=== PATIENT | male | born 1965 | race Caucasian/White ===

== ENCOUNTER 2021-12-23 10:24 | Inpatient (IN) | payer BC ==
[2021-12-23 11:04] LABS: Basophils % (A) 0 %; Eosinophils # (A) 0.2 k/uL (0-0.7); Eosinophils % (A) 3 %; HCT 33.3 % (39.0-53.0); HGB 10.8 gm/dL (13.0-17.5); Hypochromasia Slight; Lymphocytes # (A) 0.8 k/uL (1.0-4.8); Lymphocytes % (A) 12 %; MCH 29.7 pg (25.0-35.0); MCHC 32.6 g/dL (31.0-37.0); MCV 91.1 fL (80.0-100.0); Mean Platelet Volume 6.9; Monocytes # (A) 0.4 k/uL (0-1.0); Monocytes % (A) 6 %; Neutrophils # (A) 5.4 k/uL (1.3-7.7); Neutrophils % (A) 77 %; Platelet Count 432 k/uL (150-450); RBC 3.66 m/uL (4.30-5.90); RDW 13.1 % (11.5-15.5); WBC 7.1 k/uL (3.8-10.6)
[2021-12-23 11:19] LABS: Albumin 3.6 g/dL (3.5-5.0); Calcium 9.7 mg/dL (8.4-10.2); Magnesium 1.7 mg/dL (1.6-2.3); Potassium 3.6 mmol/L (3.5-5.1); Total Bilirubin 0.4 mg/dL (0.2-1.3); Total Protein 6.6 g/dL (6.3-8.2)
--- NOTE | 2021-12-23 11:42 | XR ---
EXAMINATION TYPE: XR chest 2V DATE OF EXAM: 12/23/2021 COMPARISON: NONE HISTORY: Anemia TECHNIQUE: Frontal and lateral views of the chest are obtained on 3 images. FINDINGS: Abnormal increased attenuation is present in left upper lobe with suggestion of pleural-ba sed margin, extension from the left hilar region. No evident pneumothorax or pleural effusion. Cardia c mediastinal silhouette is within normal limits. Bone mineralization is maintained. IMPRESSION: Correlate for left upper lobe pneumonia, follow-up to resolution to exclude left upper l obe lung mass, consider chest CT as indicated.
--- NOTE | 2021-12-23 11:45 | XR ---
KUB HISTORY: Anemia Frontal KUB and 2 images There is a spinal curvature, underlying degenerative disc change. There is marked destructive change of the left femoral head with secondary osteoarthritic change, probable bone resorption. Abnormal att enuation noted in the left upper lobe. There is no evident bowel obstruction or pneumoperitoneum. The re are some air-fluid levels without bowel distention. No pathologic calcification. IMPRESSION: Correlate for ileus or enteritis. Destructive appearance of the left femoral head as desc ribed. Correlate to exclude left upper lobe lung mass.
--- NOTE | 2021-12-23 11:49 | ED ---
Recheck HPI - General Chief Complaint: Recheck/Abnormal Lab/Rx Stated Complaint: Abnormal labs Time Seen by Provider: 12/23/21 10:36 Source: patient, family, RN/MD, RN notes reviewed Mode of arrival: ambulatory Limitations: physical limitation - History of Present Illness Initial Comments: 56-year-old male with a history of left hip issues for which she is supposed get a hip replacement done soon was sent in by his doctor for evaluation of anemia and elevated creatinine. Per the patient's attending Dr. Munoz the patient had a hemoglobin 9.5 and a creatinine of 2.37 which is elevated from her previous draw hemoglobin is lower than a previous draw. Patient has no known history of anemia no rectal bleeding no GI bleeding. Of also states she's not had any kidney issues he does admit he does not drink as much fluid as he probably should he drinks coffee. He denies any fevers chills nausea vomiting sweats any chest or abdominal pain no hip pain he has is his left hip no other complaints or modifying factors - Related Data Home Medications Medication Instructions Recorded Confirmed Ibuprofen [Motrin Ib] 600 mg PO Q8H PRN 12/23/21 12/23/21 Losartan-Hctz 50-12.5 mg [Hyzaar 1 tab PO DAILY 12/23/21 12/23/21 50-12.5] buPROPion XL [Wellbutrin XL] 150 mg PO DAILY 12/23/21 12/23/21 Allergies Allergy/AdvReac Type Severity Reaction Status Date / Time No Known Allergies Allergy Verified 12/23/21 10:39 Review of Systems ROS Statement: Those systems with pertinent positive or pertinent negative responses have been documented in the HPI. ROS Other: All systems not noted in ROS Statement are negative. Past Medical History Past Medical History: No Reported History History of Any Multi-Drug Resistant Organisms: None Reported Past Surgical History: No Surgical Hx Reported Past Psychological History: No Psychological Hx Reported Smoking Status: Former smoker Past Alcohol Use History: Occasional Past Drug Use History: Marijuana General Exam - General Exam Comments Initial Comments: This is a well-developed well-nourished awake alert oriented 4 male Limitations: physical limitation General appearance: alert, in no apparent distress Head exam: Present: atraumatic, normocephalic, normal inspection Eye exam: Present: normal appearance, PERRL, EOMI. Absent: scleral icterus, conjunctival injection, periorbital swelling ENT exam: Present: mucous membranes dry Neck exam: Present: normal inspection, full ROM, other (Reviewofbruits). Absent: tenderness, meningismus, lymphadenopathy Respiratory exam: Present: normal lung sounds bilaterally. Absent: respiratory distress, wheezes, rales, rhonchi, stridor Cardiovascular Exam: Present: regular rate, normal rhythm, normal heart sounds. Absent: systolic murmur, diastolic murmur, rubs, gallop, clicks GI/Abdominal exam: Present: soft, normal bowel sounds. Absent: distended, tenderness, guarding, rebound, rigid Rectal exam: Present: normal inspection, other (No gross blood no masses brown stool) Extremities exam: Present: normal inspection, full ROM, normal capillary refill. Absent: tenderness, pedal edema, joint swelling, calf tenderness Back exam: Present: normal inspection Neurological exam: Present: alert, oriented X3, CN II-XII intact Psychiatric exam: Present: normal affect, normal mood Skin exam: Present: warm, dry, intact, normal color. Absent: rash Course Vital Signs 12/23/21 10:32 Temperature 97.4 F L Pulse Rate 77 Respiratory 18 Rate Blood Pressure 139/89 O2 Sat by Pulse 100 Oximetry Medical Decision Making - Medical Decision Making I did discuss findings with patient and his . Patient does have the left upper lobe finding that I did discuss with them additionally he's got evidence of acute kidney injury positive basis of dehydration and anemia patient will be admitted I did discuss case with Dr. holt. Dr. King will be consulted. Patient will be placed on IV fluids IV antibiotics. - Lab Data Result diagrams: 12/23/21 10:45 12/23/21 10:45 Lab Results 12/23/21 12/23/21 12/23/21 Range/Units 10:45 10:45 10:45 WBC 7.1 (3.8-10.6) k/uL RBC 3.66 L (4.30-5.90) m/uL Hgb 10.8 L (13.0-17.5) gm/dL Hct 33.3 L (39.0-53.0) % MCV 91.1 (80.0-100.0) fL MCH 29.7 (25.0-35.0) pg MCHC 32.6 (31.0-37.0) g/dL RDW 13.1 (11.5-15.5) % Plt Count 432 (150-450) k/uL MPV 6.9 Neutrophils % 77 % Lymphocytes % 12 % Monocytes % 6 % Eosinophils % 3 % Basophils % 0 % Neutrophils # 5.4 (1.3-7.7) k/uL Lymphocytes # 0.8 L (1.0-4.8) k/uL Monocytes # 0.4 (0-1.0) k/uL Eosinophils # 0.2 (0-0.7) k/uL Basophils # 0.0 (0-0.2) k/uL Hypochromasia Slight Sodium 141 (137-145) mmol/L Potassium 3.6 (3.5-5.1) mmol/L Chloride 108 H (98-107) mmol/L Carbon Dioxide 19 L (22-30) mmol/L Anion Gap 14 mmol/L BUN 27 H (9-20) mg/dL Creatinine 1.96 H (0.66-1.25) mg/dL Est GFR (CKD-EPI)AfAm 43 (>60 ml/min/1.73 sqM) Est GFR (CKD-EPI)NonAf 37 (>60 ml/min/1.73 sqM) Glucose 99 (74-99) mg/dL Calcium 9.7 (8.4-10.2) mg/dL Magnesium 1.7 (1.6-2.3) mg/dL Total Bilirubin 0.4 (0.2-1.3) mg/dL AST 38 (17-59) U/L ALT 80 H (4-49) U/L Alkaline Phosphatase 136 H (38-126) U/L Creatine Kinase 55 (55-170) U/L Troponin I <0.012 (0.000-0.034) ng/mL Total Protein 6.6 (6.3-8.2) g/dL Albumin 3.6 (3.5-5.0) g/dL Lipase 27 (23-300) U/L TSH (0.465-4.680) mIU/L Urine Color Urine Appearance (Clear) Urine pH (5.0-8.0) Ur Specific Lincoln (1.001-1.035) Urine Protein (Negative) Urine Glucose (UA) (Negative) Urine Ketones (Negative) Urine Blood (Negative) Urine Nitrite (Negative) Urine Bilirubin (Negative) Urine Urobilinogen (<2.0) mg/dL Ur Leukocyte Esterase (Negative) Stool Occult Blood (Negative) Blood Type Blood Type Confirm Blood Type Recheck Bld Type Recheck Status Antibody Screen Spec Expiration Date 12/23/21 12/23/21 12/23/21 Range/Units 10:45 10:45 10:50 WBC (3.8-10.6) k/uL RBC (4.30-5.90) m/uL Hgb (13.0-17.5) gm/dL Hct (39.0-53.0) % MCV (80.0-100.0) fL MCH (25.0-35.0) pg MCHC (31.0-37.0) g/dL RDW (11.5-15.5) % Plt Count (150-450) k/uL MPV Neutrophils % % Lymphocytes % % Monocytes % % Eosinophils % % Basophils % % Neutrophils # (1.3-7.7) k/uL Lymphocytes # (1.0-4.8) k/uL Monocytes # (0-1.0) k/uL Eosinophils # (0-0.7) k/uL Basophils # (0-0.2) k/uL Hypochromasia Sodium (137-145) mmol/L Potassium (3.5-5.1) mmol/L Chloride (98-107) mmol/L Carbon Dioxide (22-30) mmol/L Anion Gap mmol/L BUN (9-20) mg/dL Creatinine (0.66-1.25) mg/dL Est GFR (CKD-EPI)AfAm (>60 ml/min/1.73 sqM) Est GFR (CKD-EPI)NonAf (>60 ml/min/1.73 sqM) Glucose (74-99) mg/dL Calcium (8.4-10.2) mg/dL Magnesium (1.6-2.3) mg/dL Total Bilirubin (0.2-1.3) mg/dL AST (17-59) U/L ALT (4-49) U/L Alkaline Phosphatase (38-126) U/L Creatine Kinase (55-170) U/L Troponin I (0.000-0.034) ng/mL Total Protein (6.3-8.2) g/dL Albumin (3.5-5.0) g/dL Lipase (23-300) U/L TSH 3.980 (0.465-4.680) mIU/L Urine Color Urine Appearance (Clear) Urine pH (5.0-8.0) Ur Specific [place] (1.001-1.035) Urine Protein (Negative) Urine Glucose (UA) (Negative) Urine Ketones (Negative) Urine Blood (Negative) Urine Nitrite (Negative) Urine Bilirubin (Negative) Urine Urobilinogen (<2.0) mg/dL Ur Leukocyte Esterase (Negative) Stool Occult Blood (Negative) Blood Type A Positive Blood Type Confirm A Positive Blood Type Recheck No Previous Record Bld Type Recheck Status CABO Indicated Antibody Screen NEGATIVE Spec Expiration Date 12/26/2021 - 234412/23/21 12/23/21 Range/Units 12:41 12:41 WBC (3.8-10.6) k/uL RBC (4.30-5.90) m/uL Hgb (13.0-17.5) gm/dL Hct (39.0-53.0) % MCV (80.0-100.0) fL MCH (25.0-35.0) pg MCHC (31.0-37.0) g/dL RDW (11.5-15.5) % Plt Count (150-450) k/uL MPV Neutrophils % % Lymphocytes % % Monocytes % % Eosinophils % % Basophils % % Neutrophils # (1.3-7.7) k/uL Lymphocytes # (1.0-4.8) k/uL Monocytes # (0-1.0) k/uL Eosinophils # (0-0.7) k/uL Basophils # (0-0.2) k/uL Hypochromasia Sodium (137-145) mmol/L Potassium (3.5-5.1) mmol/L Chloride (98-107) mmol/L Carbon Dioxide (22-30) mmol/L Anion Gap mmol/L BUN (9-20) mg/dL Creatinine (0.66-1.25) mg/dL Est GFR (CKD-EPI)AfAm (>60 ml/min/1.73 sqM) Est GFR (CKD-EPI)NonAf (>60 ml/min/1.73 sqM) Glucose (74-99) mg/dL Calcium (8.4-10.2) mg/dL Magnesium (1.6-2.3) mg/dL Total Bilirubin (0.2-1.3) mg/dL AST (17-59) U/L ALT (4-49) U/L Alkaline Phosphatase (38-126) U/L Creatine Kinase (55-170) U/L Troponin I (0.000-0.034) ng/mL Total Protein (6.3-8.2) g/dL Albumin (3.5-5.0) g/dL Lipase (23-300) U/L TSH (0.465-4.680) mIU/L Urine Color Light Yellow Urine Appearance Clear (Clear) Urine pH 6.5 (5.0-8.0) Ur Specific [place] 1.012 (1.001-1.035) Urine Protein Trace H (Negative) Urine Glucose (UA) Negative (Negative) Urine Ketones Negative (Negative) Urine Blood Negative (Negative) Urine Nitrite Negative (Negative) Urine Bilirubin Negative (Negative) Urine Urobilinogen <2.0 (<2.0) mg/dL Ur Leukocyte Esterase Negative (Negative) Stool Occult Blood Negative (Negative) Blood Type Blood Type Confirm Blood Type Recheck Bld Type Recheck Status Antibody Screen Spec Expiration Date - EKG Data -: EKG Interpreted by Me EKG shows normal: sinus rhythm EKG Comments: Sinus rhythm with [place] interval of 116 ventricular rate 74 QRS 106 QT since QTC 379/[address]-T wave changes some artifact present - Radiology Data Radiology results: report reviewed (Imaging reviewed as well as report evidence a left upper lobe consolidation unclear whether pneumonia or mass with pneumonia basically reports), image reviewed Disposition Clinical Impression: Mass of left lung, Left upper lobe pneumonia, Anemia, Acute kidney injury, Dehydration Disposition: ADMITTED IP TO THIS [facility] Condition: Stable Referrals: Chandana Munoz MD [Primary Care Provider] - 1-2 days Decision Date: 12/23/21 Decision Time: 14:39
[2021-12-23 12:56] LABS: Appearance,Urine Clear (Clear); Bilirubin,Urine Negative (Negative); Blood,Urine Negative (Negative); Color,Urine Light Yellow; Glucose,Urine (UA) Negative (Negative); Ketones,Urine Negative (Negative); Leukocyte Esterase,Urine Negative (Negative); Nitrite,Urine Negative (Negative); PH, Urine 6.5 (5.0-8.0); Protein,Urine Trace (Negative); Specific Gravity,Urine 1.012 (1.001-1.035); Urobilinogen,Urine <2.0 mg/dL (<2.0)
--- NOTE | 2021-12-23 13:27 | CT ---
EXAMINATION TYPE: CT chest wo con DATE OF EXAM: 12/23/2021 COMPARISON: Radiograph same day HISTORY: 56-year-old male abnormal CXR, spot in left upper lobe lung-scheduled for hip surgery. Left upper lobe infiltrate versus mass. TECHNIQUE: Contiguous axial scanning of the chest without IV contrast. Coronal and sagittal reconstru ctions performed. CT DLP: 342.2 mGycm Automated exposure control for dose reduction was used. FINDINGS: Heart normal size without pericardial effusion. LAD and circumflex coronary artery calcifications are present. Ectatic aortic root at 3.9 cm. Upper descending thoracic aorta is ectatic at 3.3 cm. Bovine configura tion to the aortic arch. Ectatic lower descending thoracic aorta 2.8 cm. There is moderate centrilobular emphysema. 5 mm subpleural pulmonary nodule overlying the right hemid iaphragm. Within the left upper lobe, extending to have broad-based abutment of the lateral pleural surface and partial abutment of the major fissure, there is a large area of consolidation measuring up to 11.7 x 5.7 cm. Some of the region appears to represent airspace disease but there is also a more focal roun ded region, for example, coronal image 31. Internal areas of cavitation are noted, axial image 21. No pleural effusion. Visualized upper abdomen shows low density thickening of the left adrenal gland measuring up to 1.9 c m. The attenuation of 6 Hounsfield units suggests underlying adrenal hyperplasia or adrenal adenoma. Bones: No osseous destructive process. IMPRESSION: 1. COPD WITH MODERATE EMPHYSEMA. 2. LARGE AREA OF CONSOLIDATION MEASURING 11.7 X 5.7 CM ALONG THE PERIPHERY OF THE LEFT UPPER LOBE. TH IS IS EQUIVOCAL FOR CAVITARY NEOPLASM WITH SURROUNDING PNEUMONIA VERSUS A PURELY INFECTIOUS PROCESS W ITH DEVELOPING CAVITARY PNEUMONIA. RECOMMEND CORRELATING WITH PATIENT'S SYMPTOMS. A CONTRAST-ENHANCED STUDY, PET/CT, OR SHORT INTERVAL FOLLOW-UP AFTER ANTIBIOTIC TREATMENT MAY BE HELPFUL IN FURTHER EVAL UATING.
[2021-12-23] MEDS ORDERED: cefTRIAXone IN SWFI 1,000 MG/10 ML SYRINGE IVP STA (14:21)
[2021-12-23] MEDS ORDERED: PNEUMONIA PROTOCOL UTILIZED 1 EACH MISC PO PRN (14:39)
[2021-12-23] MEDS ORDERED: AZITHROMYCIN 500 MG in SODIUM CHLORIDE 0.9% 250 ML IVPB STA (14:39)
[2021-12-23] MEDS ORDERED: IBUPROFEN 600 MG TAB PO PRN (14:41)
[2021-12-23] MEDS ORDERED: HYDROmorphone 1 MG/ML 1 ML SYRINGE IVP STA (14:45)
[2021-12-23] MEDS: SODIUM CHLORIDE 0.9% 1,000 ML IV SCH ×2 (15:38→23:52)
[2021-12-23] MEDS ORDERED: ALPRAZolam 0.25 MG TAB PO PRN (17:15)
[2021-12-23] MEDS: HYDROmorphone 1 MG/ML 1 ML SYRINGE IVP PRN (21:21)
[2021-12-23] MEDS: HEPARIN SODIUM,PORCINE/PF 5,000 UNIT/0.5 ML SYRINGE SQ SCH (21:21)
--- NOTE | 2021-12-23 23:32 | HP ---
HISTORY AND PHYSICAL CHIEF COMPLAINT: Abnormal labs. HISTORY OF PRESENT ILLNESS: This is a 56-year-old gentleman with a past medical history of no significant medical issues, being followed by Dr. Ryan Munoz in the outpatient setting, was supposed to have a hip replacement done next week by Orthopedic Surgery in [facility]. The patient was found to have elevated creatinine and anemia of creatinine 2.37, and the patient was sent to [facility] for further evaluation and treatment. The evaluation in the hospital, chest x-ray was done, which was personally reviewed by me showed possible left upper lobe pneumonia versus mass lesion. CT scan of the chest, which again I reviewed showed a large area of consolidative mass in the left upper lobe, possibly cavitary neoplasm versus infectious process. The patient is being admitted for further evaluation and treatment. There is no history of any fever, rigors, or chills. PAST MEDICAL HISTORY: History of DJD, history of smoking. HOME MEDICATIONS: Reviewed include Motrin. Dose and rest of medications noted. ALLERGIES: None. FAMILY HISTORY: No history of heart disease or strokes in the family. SOCIAL HISTORY: Previous history of smoking. REVIEW OF SYSTEMS: A 14-point review of systems is negative except as mentioned earlier. PHYSICAL EXAMINATION: VITAL SIGNS: Pulse is 77, blood pressure is 120/60, respirations 18. HEENT: Conjunctivae normal. NECK: No JVD. CARDIOVASCULAR: S1, S2. RESPIRATIONS: Breath sounds diminished at the bases. No rhonchi. No crackles. ABDOMEN: Soft, nontender. LEGS: No edema. No swelling. NERVOUS SYSTEM: No focal deficits. LABS: Creatinine 1.9. ASSESSMENT: 1. Left upper lobe mass lesion versus pneumonia. 2. Increased creatinine with possible acute renal failure. 3. History of nicotine dependence. RECOMMENDATIONS AND DISCUSSION: This is a 56-year-old gentleman who presented with multiple medical issues, we will monitor the patient closely. Empiric antibiotics initiated. We will obtain the cultures. We will obtain pulmonary consultation and nephrology consultation for acute renal failure. The CT scan of the chest was reviewed and the patient might require further evaluation including cultures and biopsies. The patient had orthopedic surgery scheduled in the near future, which may be postponed till final resolution of the lung issues are determined. Further recommendations to follow. Prognosis guarded. MMODL / IJN: [id number] /
--- NOTE | 2021-12-24 06:45 | XR ---
EXAMINATION TYPE: XR chest 2V DATE OF EXAM: 12/24/2021 COMPARISON: Chest x-ray and CT chest from 1 day earlier HISTORY: Pneumonia. TECHNIQUE: Frontal and lateral views of the chest are obtained. FINDINGS: Background chronic emphysematous change with masslike consolidation in the periphery of th e left upper lobe is redemonstrated. Right lung remains clear. No pleural effusion or pneumothorax se en bilaterally. The cardiac silhouette size is stable and within normal limits. The osseous structu res are intact. IMPRESSION: Chronic emphysematous change with persistent left upper lobe cavitating pneumonia. No si gnificant change from one day earlier.
[2021-12-24] MEDS: PANTOPRAZOLE 40 MG TABLET PO SCH (08:26)
[2021-12-24] MEDS: AZITHROMYCIN 500 MG TAB PO SCH (08:26)
[2021-12-24] MEDS: HEPARIN SODIUM,PORCINE/PF 5,000 UNIT/0.5 ML SYRINGE SQ SCH ×2 (08:26→19:38)
[2021-12-24] MEDS: LOSARTAN-HCTZ 50-12.5 MG 1 EACH TAB PO SCH (08:26)
[2021-12-24] MEDS: HYDROmorphone 1 MG/ML 1 ML SYRINGE IVP PRN ×3 (08:29→20:55)
[2021-12-24] MEDS: SODIUM CHLORIDE 0.9% 1,000 ML IV SCH ×2 (08:29→19:39)
[2021-12-24] MEDS: buPROPion XL 150 MG TAB.ER.24H PO SCH (09:53)
--- NOTE | 2021-12-24 11:11 | P.CNPUL ---
History of Present Illness Consult date: 12/24/21 Requesting physician: Jasmeet Berry Reason for consult: abnormal CXR/CT Chief complaint: Abnormal lab finding History of present illness: This a very pleasant 56-year-old male patient who follows with Dr. Chandana Munoz as his primary care provider. He has a history of hypertension, chronic tobacco dependence of 45 years, left hip pain and was planning on having a left hip arthroplasty. During the preop workup he was found to have a hemoglobin of 9.5 and a creatinine of 2.37 and was recommended by his PCP to be evaluated here he was seen in the emergency room yesterday. He has been taking a lot of ibuprofen for the pain. He is maintained on Hyzaar and Wellbutrin. White count 7.1. Hemoglobin 10.8. Sodium 141. Potassium 3.6. Bicarb 19. BUN 27. Creatinine 1.96. AST 38. ALT 80. Barfield virus by PCR not detected. A KUB x- ray revealed ileus or enteritis. Destructive appearance of left femoral head. Abnormal attenuation in the left upper lobe. Chest x-ray revealed increased attenuation present on the left upper lobe suggestive pleural base margin, extension the left hilar region. Computed tomography scan of the chest revealed moderate emphysema/COPD. There is a large area of consolidation measuring 11.7 x 5.7 cm along the periphery of the left upper lobe. Equivocal for cavitary neoplasm with surrounding pneumonia versus pearly and purely infectious process. The patient is seen in consultation for the same. He is currently resting comfortably in bed. Awake and alert in no acute distress. He denies any shortness of breath, cough or congestion. No fever, chills or night sweats. No hemoptysis. He has lost about 5 pounds in the past 3 months. No leukocytosis. Pro calcitonin 0.08. He is maintaining O2 saturation 98% on room air. Afebrile. Hemodynamically stable. Review of Systems REVIEW OF SYSTEMS: CONSTITUTIONAL: Positive for weight loss of 5 pounds in the past 3 months.. EYES: Denies change in vision. EARS, NOSE, MOUTH, THROAT: Denies headaches, denies sore throat. CARDIOVASCULAR: Denies chest pain, palpitations or syncopal episodes. RESPIRATORY: Denies shortness of breath, cough, congestion or hemoptysis. GASTROINTESTINAL: Denies change in appetite, denies abdominal pain GENITOURINARY: Denies hematuria, denies infections. MUSKULOSKELETAL: Left hip pain. INTEGUMENTARY: Denies rash, denies eczema. NEUROLOGICAL: Denies recent memory loss, no recent seizure activity. PSYCHIATRIC: Denies anxiety, denies depression. HEMATOLOGIC/LYMPHATIC: Denies anemia, denies enlarged lymph nodes. Past Medical History Past Medical History: Hearing Disorder / Deafness, Osteoarthritis (OA) History of Any Multi-Drug Resistant Organisms: None Reported Past Surgical History: No Surgical Hx Reported Past Anesthesia/Blood Transfusion Reactions: No Reported Reaction Past Psychological History: No Psychological Hx Reported Smoking Status: Former smoker Past Alcohol Use History: Occasional Past Drug Use History: Marijuana Medications and Allergies Home Medications Medication Instructions Recorded Confirmed Type Ibuprofen [Motrin Ib] 600 mg PO Q8H PRN 12/23/21 12/23/21 History Losartan-Hctz 50-12.5 mg [Hyzaar 1 tab PO DAILY 12/23/21 12/23/21 History 50-12.5] buPROPion XL [Wellbutrin XL] 150 mg PO DAILY 12/23/21 12/23/21 History Allergies Allergy/AdvReac Type Severity Reaction Status Date / Time No Known Allergies Allergy Verified 12/23/21 10:39 Physical Exam Vitals: Vital Signs Temp Pulse Pulse Resp BP BP Pulse Ox 12/24/21 04:05 98.0 F 69 15 132/73 98 12/23/21 19:16 97.7 F 70 15 109/51 100 12/23/21 17:32 97.6 F 71 18 170/83 100 12/23/21 17:02 98.1 F 77 18 120/68 98 12/23/21 15:48 72 18 121/76 100 Intake and Output 12/23/21 12/24/21 12/24/21 22:59 06:59 14:59 Intake Total 296 240 Output Total 500 300 Balance 296 -500 -60 Intake: Oral 296 240 Output: Urine 500 300 Other: Voiding Method Toilet Urinal Weight 68.492 kg GENERAL EXAM: Alert, active, very pleasant 56-year-old male patient, on room air, comfortable in no apparent distress. HEAD: Normocephalic. EYES: Normal reaction of pupils, equal size. NOSE: Clear with pink turbinates. THROAT: No erythema or exudates. NECK: No masses, no JVD. CHEST: No chest wall deformity. LUNGS: Equal air entry with few scattered rhonchi over the left lung. CVS: S1 and S2 normal with no audible murmur, regular rhythm. ABDOMEN: No hepatosplenomegaly, normal bowel sounds, no guarding or rigidity. SPINE: No scoliosis or deformity SKIN: No rashes CENTRAL NERVOUS SYSTEM: No focal deficits, tone is normal in all 4 extremities. EXTREMITIES: There is no peripheral edema. No clubbing, no cyanosis. Peripheral pulses are intact. Results - Laboratory Findings CBC and BMP: 12/23/21 10:45 12/23/21 10:45 Abnormal lab findings: Abnormal Labs 12/23/21 12/23/21 12/23/21 10:45 10:45 10:45 RBC 3.66 L Hgb 10.8 L Hct 33.3 L Lymphocytes # 0.8 L ESR 84 H Chloride 108 H Carbon Dioxide 19 L BUN 27 H Creatinine 1.96 H ALT 80 H Alkaline Phosphatase 136 H C-Reactive Protein Urine Protein 12/23/21 12/23/21 10:45 12:41 RBC Hgb Hct Lymphocytes # ESR Chloride Carbon Dioxide BUN Creatinine ALT Alkaline Phosphatase C-Reactive Protein 3.0 H Urine Protein Trace H - Diagnostic Findings Chest x-ray: image reviewed CT scan - chest: image reviewed Assessment and Plan Assessment: Left hip pain being worked up for possible left hip arthroplasty found to have abnormal labs and referred to the hospital for anemia, renal failure 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 No evidence of pneumonia. Pro-calcitonin 0.08. No leukocytosis. No fever. No symptoms Chronic tobacco dependence of 45 years at 1 pack per day, states quit 3 weeks ago Acute renal failure suspect secondary to increased amount of NSAIDs, hydrochlorothiazide. Current creatinine 1.96. GFR 37 Anemia of unclear etiology, current hemoglobin 10.8 Hypertension Plan: The patient was seen and evaluated Chest x-ray, CAT scan, labs and medications reviewed Will need a biopsy of the left upper lobe lung mass We'll request interventional radiology for FNA Stable and on room air The patient could be discharged home and have this done as outpatient Continues on normal saline at 100 ML's per hour Follow-up labs are pending Educated regarding the importance of complete smoking cessation To avoid nephrotoxic agents Will need outpatient PET scan We will continue to follow make further recommendations based on his clinical status I have personally seen and examined the patient, performed the documentation and the assessment and plan as written. Number of minutes spent on the visit: 20.
[2021-12-24 12:52] LABS: Basophils # (A) 0.03 X 10*3/uL (0.00-0.10); Basophils % (A) 0.5 %; Eosinophils # (A) 0.17 X 10*3/uL (0.04-0.35); Eosinophils % (A) 2.6 %; HCT 27.9 % (39.6-50.0); HGB 8.7 g/dL (13.0-17.0); Immature Grans, Automated 0.5 %; Lymphocytes # (A) 0.73 X 10*3/uL (0.90-5.00); Lymphocytes % (A) 11.2 %; MCHC 31.2 g/dL (32.0-37.0); Mean Platelet Volume 8.8 fL (9.5-12.2); Monocytes # (A) 0.68 X 10*3/uL (0.20-1.00); Monocytes % (A) 10.4 %; NRBC Per 100 WBC 0 /100 WBCS (0.0-0.0); Neutrophils # (A) 4.88 X 10*3/uL (1.80-7.70); Neutrophils % (A) 74.8 %; Platelet Count 343 X 10*3/uL (140-440); RDW 12.9 % (11.5-14.5); WBC 6.52 X 10*3/uL (4.50-10.00)
[2021-12-24 13:52] LABS: ALT 54 U/L (10-49); AST 23 U/L (14-35); African American GFR (CKD) 58.6 (60.0-200.0); Albumin 3.2 g/dL (3.8-4.9); Alkaline Phosphatase 112 U/L (41-126); BUN/Creat Ratio 13.53 Ratio (12.00-20.00); Blood Urea Nitrogen 20.3 mg/dL (9.0-27.0); Calcium 9.2 mg/dL (8.7-10.3); Carbon Dioxide 17.8 mmol/L (20.0-27.5); Chloride 111 mmol/L (96-109); Globulin 2.5 g/dL (1.6-3.3); Glucose 93 mg/dL (70-110); Non-African American GFR(CKD) 50.6 (60.0-200.0); Potassium 3.4 mmol/L (3.5-5.5); Sodium 141 mmol/L (135-145); Total Bilirubin <0.15 mg/dL (0.30-1.20); Total Protein 5.7 g/dL (6.2-8.2)
[2021-12-24] MEDS: POTASSIUM CHLORIDE ER 20 MEQ TAB.ER PO SCH ×2 (18:09→19:38)
[2021-12-25] MEDS: HYDROmorphone 1 MG/ML 1 ML SYRINGE IVP PRN ×4 (04:05→22:01)
[2021-12-25] MEDS: SODIUM CHLORIDE 0.9% 1,000 ML IV SCH ×2 (06:21→18:07)
[2021-12-25] MEDS: AZITHROMYCIN 500 MG TAB PO SCH (08:09)
[2021-12-25] MEDS: HEPARIN SODIUM,PORCINE/PF 5,000 UNIT/0.5 ML SYRINGE SQ SCH ×2 (08:09→22:01)
[2021-12-25] MEDS: LOSARTAN-HCTZ 50-12.5 MG 1 EACH TAB PO SCH (08:09)
[2021-12-25] MEDS: buPROPion XL 150 MG TAB.ER.24H PO SCH (08:09)
[2021-12-25] MEDS: PANTOPRAZOLE 40 MG TABLET PO SCH (08:09)
--- NOTE | 2021-12-25 10:31 | P.PN ---
Subjective Progress Note Date: 12/25/21 Principal diagnosis: Cavitary lung mass This a very pleasant 56-year-old male patient who follows with Dr. Chandana Munoz as his primary care provider. He has a history of hypertension, chronic tobacco dependence of 45 years, left hip pain and was planning on having a left hip arthroplasty. During the preop workup he was found to have a hemoglobin of 9.5 and a creatinine of 2.37 and was recommended by his PCP to be evaluated here he was seen in the emergency room yesterday. He has been taking a lot of ibuprofen for the pain. He is maintained on Hyzaar and Wellbutrin. White count 7.1. Hemoglobin 10.8. Sodium 141. Potassium 3.6. Bicarb 19. BUN 27. Creatinine 1.96. AST 38. ALT 80. Barfield virus by PCR not detected. A KUB x- ray revealed ileus or enteritis. Destructive appearance of left femoral head. Abnormal attenuation in the left upper lobe. Chest x-ray revealed increased attenuation present on the left upper lobe suggestive pleural base margin, exte nsion the left hilar region. Computed tomography scan of the chest revealed moderate emphysema/COPD. There is a large area of consolidation measuring 11.7 x 5.7 cm along the periphery of the left upper lobe. Equivocal for cavitary neoplasm with surrounding pneumonia versus pearly and purely infectious process. The patient is seen in consultation for the same. He is currently resting comfortably in bed. Awake and alert in no acute distress. He denies any shortness of breath, cough or congestion. No fever, chills or night sweats. No hemoptysis. He has lost about 5 pounds in the past 3 months. No leukocytosis. Pro calcitonin 0.08. He is maintaining O2 saturation 98% on room air. Af ebrile. Hemodynamically stable. Reevaluated today on 12/25/21, patient is doing well, relatively asymptomatic, hopefully the patient will undergo CT-guided needle biopsy/FNA of the left upper lobe mass. And I believe the patient could be considered for discharge home after his and follow-up on outpatient basis. Needs outpatient workup for underlying malignancy involving the left upper lobe. Objective - Vital Signs Vital signs: Vital Signs Temp 97.9 F 12/25/21 04:07 Pulse 73 12/25/21 04:07 Resp 16 12/25/21 04:07 BP 148/83 10/23/22 04:07 Pulse Ox 96 12/25/21 04:07 FiO2 Intake & Output 12/24/21 12/25/21 12/25/21 18:59 06:59 18:59 Intake Total 480 1200 Output Total 300 800 Balance 180 400 Intake: Intake, IV Titration 1200 Amount Sodium Chloride 0.9% 1, 1200 000 ml @ 100 mls/hr IV . Q10H [facility] Rx#:[id number] Oral 480 Output: Urine 300 800 Other: Voiding Method Toilet Urinal # Voids 3 - Exam Physical Exam: Revealed a 56-year-old white male in no distress. Head: Atraumatic normocephalic. HEENT:[Neck is supple.] [No neck masses.] [No thyromegaly.] [No JVD.] Chest: [Clear throughout, no crackles, no rhonchi, no wheezes.] Cardiac Exam: [Normal S1 and S2, no S3 gallop, no murmur.] Abdomen: [Soft, nontender, no megaly, no rebound, no guarding, normal bowel so unds.] Extremities: [No clubbing, no edema, no cyanosis.] Neurological Exam: [No focal neurologic deficit.] Alert and oriented 3. Psychiatric: Normal mood affect and normal mental status examination. Hematologic/lymphatic, no evidence of any palpable lymphadenopathy. Skin: No rashes - Labs CBC & Chem 7: 12/24/21 07:46 12/24/21 07:46 Labs: Abnormal Lab Results - Last 24 Hours (Table) 12/24/21 12/24/21 Range/Units 07:46 07:46 RBC 3.00 L (4.40-5.60) X 10*6/uL Hgb 8.7 L (13.0-17.0) g/dL Hct 27.9 L (39.6-50.0) % MCHC 31.2 L (32.0-37.0) g/dL MPV 8.8 L (9.5-12.2) fL Lymphocytes # 0.73 L (0.90-5.00) X 10*3/uL Potassium 3.4 L (3.5-5.5) mmol/L Chloride 111 H (96-109) mmol/L Carbon Dioxide 17.8 L (20.0-27.5) mmol/L Est GFR (CKD-EPI)AfAm 58.6 L (60.0-200.0) Est GFR (CKD-EPI)NonAf 50.6 L (60.0-200.0) Total Bilirubin <0.15 L (0.30-1.20) mg/dL ALT 54 H (10-49) U/L Total Protein 5.7 L (6.2-8.2) g/dL Albumin 3.2 L (3.8-4.9) g/dL Albumin/Globulin Ratio 1.30 L (1.60-3.17) g/dL Microbiology - Last 24 Hours (Table) 12/23/21 15:10 Blood Culture - Preliminary Blood No Growth after 24 hours 12/23/21 15:25 Blood Culture - Preliminary Blood No Growth after 24 hours Assessment and Plan Assessment: Impression: 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 Tobacco dependence syndrome Left hip osteoarthritis Acute renal failure/acute kidney injury exact etiology is not clear could be related to excessive use of nonsteroidal and inflammatory drugs Hypertension Suspect Chronic anemia, needs outpatient workup Recommendation: Continue plans for CT-guided needle biopsy Continue hydration. Avoid nephrotoxic agents Patient will need PET scan on outpatient basis If CT-guided biopsy is nondiagnostic down the line, may have to be considered for lung biopsy/bronchoscopy We will continue to follow Time with Patient: Less than 30
[2021-12-25 11:27] LABS: Basophils # (A) 0.03 X 10*3/uL (0.00-0.10); Basophils % (A) 0.5 %; Eosinophils # (A) 0.17 X 10*3/uL (0.04-0.35); Eosinophils % (A) 2.6 %; HCT 26.1 % (39.6-50.0); HGB 8.4 g/dL (13.0-17.0); Immature Grans, Automated 0.5 %; Lymphocytes # (A) 0.87 X 10*3/uL (0.90-5.00); Lymphocytes % (A) 13.4 %; MCHC 32.2 g/dL (32.0-37.0); Mean Platelet Volume 8.6 fL (9.5-12.2); Monocytes # (A) 0.69 X 10*3/uL (0.20-1.00); Monocytes % (A) 10.6 %; NRBC Per 100 WBC 0 /100 WBCS (0.0-0.0); Neutrophils # (A) 4.69 X 10*3/uL (1.80-7.70); Neutrophils % (A) 72.4 %; Platelet Count 341 X 10*3/uL (140-440); RDW 12.9 % (11.5-14.5); WBC 6.48 X 10*3/uL (4.50-10.00)
[2021-12-25 11:58] LABS: African American GFR (CKD) 62.1 (60.0-200.0); BUN/Creat Ratio 12.17 Ratio (12.00-20.00); Blood Urea Nitrogen 17.4 mg/dL (9.0-27.0); Calcium 9.1 mg/dL (8.7-10.3); Carbon Dioxide 18.7 mmol/L (20.0-27.5); Non-African American GFR(CKD) 53.6 (60.0-200.0)
--- NOTE | 2021-12-26 00:04 | PN ---
PROGRESS NOTE DATE OF SERVICE: 12/24/2021 SUBJECTIVE: This 56-year-old gentleman admitted with significant pneumonic process/mass lesion in the left lung, is being closely monitored. Interventional Radiology evaluation is being recommended. No chest pain. No palpitations. No fever. OBJECTIVE: VITAL SIGNS: Pulse 96, blood pressure 174/89, respirations 18. CHEST: A few scattered rhonchi. ABDOMEN: Soft. LEGS: No edema. NERVOUS SYSTEM: Nonfocal. LABORATORY DATA: Hemoglobin 8.7. Other labs are noted. ASSESSMENT: 1. Left upper lobe mass lesion versus cavitating pneumonia. 2. Increased creatinine with possible acute renal failure, present on admission. 3. History of nicotine dependence. RECOMMENDATIONS: I recommend to continue current . See orders for further details. Interventional Radiology evaluation. Closely follow with . [place] [facility]. Further recommendations to follow. MMODL / IJN: [id number] / MTDD
[2021-12-26] MEDS: SODIUM CHLORIDE 0.9% 1,000 ML IV SCH ×3 (03:02→23:09)
[2021-12-26] MEDS: HYDROmorphone 1 MG/ML 1 ML SYRINGE IVP PRN ×3 (05:11→18:00)
--- NOTE | 2021-12-26 05:16 | PN ---
PROGRESS NOTE DATE OF SERVICE: 12/25/2021 SUBJECTIVE: This 56-year-old gentleman, who was admitted with abnormal chest x-ray and lesion, is being closely monitored. No chest pain. No palpitations. No fever. PHYSICAL EXAMINATION: VITAL SIGNS: Pulse is 68, blood pressure 140/85, respirations 16. CHEST: Clear to auscultation. ABDOMEN: Soft. NERVOUS SYSTEM: Nonfocal. LABORATORY DATA: Reviewed. WBC 8, hemoglobin 8.4. ASSESSMENT: 1. Left upper lobe mass lesion versus pneumonia. 2. Increased creatinine with possible acute renal failure. 3. History of nicotine dependence. RECOMMENDATIONS: I recommend to continue current management, symptomatic treatment. Otherwise, possible fine-needle aspiration biopsy tomorrow. Prognosis guarded. Further recommendation to condition follow closely with Pulmonary. MMODL / IJN: [id number] /
--- NOTE | 2021-12-26 08:11 | P.PN ---
Subjective Progress Note Date: 12/26/21 This a very pleasant 56-year-old male patient who follows with Dr. Chandana Munoz as his primary care provider. He has a history of hypertension, chronic tobacco dependence of 45 years, left hip pain and was planning on having a left hip arthroplasty. During the preop workup he was found to have a hemoglobin of 9.5 and a creatinine of 2.37 and was recommended by his PCP to be evaluated here he was seen in the emergency room yesterday. He has been taking a lot of ibuprofen for the pain. He is maintained on Hyzaar and Wellbutrin. White count 7.1. Hemoglobin 10.8. Sodium 141. Potassium 3.6. Bicarb 19. BUN 27. Creatinine 1.96. AST 38. ALT 80. Barfield virus by PCR not detected. A KUB x-ray revealed ileus or enteritis. Destructive appearance of left femoral head. Abnormal attenuation in the left upper lobe. Chest x-ray revealed increased attenuation present on the left upper lobe suggestive pleural base margin, extension the left hilar region. Computed tomography scan of the chest revealed moderate emphysema/COPD. There is a large area of consolidation measuring 11.7 x 5.7 cm along the periphery of the left upper lobe. Equivocal for cavitary neoplasm with surrounding pneumonia versus pearly and purely infectious process. The patient is seen in consultation for the same. He is currently resting comfortably in bed. Awake and alert in no acute distress. He denies any sh ortness of breath, cough or congestion. No fever, chills or night sweats. No hemoptysis. He has lost about 5 pounds in the past 3 months. No leukocytosis. Pro calcitonin 0.08. He is maintaining O2 saturation 98% on room air. Afebrile. Hemodynamically stable. Reevaluated today on 12/25/21, patient is doing well, relatively asymptomatic, hopefully the patient will undergo CT-guided needle biopsy/FNA of the left upper lobe mass. And I believe the patient could be considered for discharge home after his and follow-up on outpatient basis. Needs outpatient workup for underlying malignancy involving the left upper lobe. The patient is seen today 12/26/2021 in follow-up on the regular medical floor. He is currently resting comfortably in bed. Maintaining O2 saturations in the 90s on room air. Afebrile. Hemodynamically stable. Creatinine has improved and most recently is 1.4. Hemoglobin 8.4. Continues on normal saline at 100 ML's per hour. The plan is for interventional radiology to perform a CT-guided fine-needle aspirate of the left upper lobe cavitary lesion. He is currently nothing by mouth. Objective - Vital Signs Vital signs: Vital Signs Temp 97.8 F 12/26/21 04:08 Pulse 71 12/26/21 04:08 Resp 16 12/26/21 04:08 BP 145/90 12/26/21 04:08 Pulse Ox 96 12/26/21 04:08 FiO2 Intake & Output 12/25/21 12/26/21 12/26/21 18:59 06:59 18:59 Intake Total 1700 Output Total 700 1250 Balance -700 450 Intake: Intake, IV Titration 1200 Amount Sodium Chloride 0.9% 1, 1200 000 ml @ 100 mls/hr IV . Q10H [facility] Rx#:[id number] Oral 500 Output: Urine 700 1250 Other: Voiding Method Toilet Urinal # Voids 1 - Exam GENERAL EXAM: 56-year-old pale male patient, on room air, resting comfortably in bed, in no apparent distress. HEAD: Normocephalic. EYES: Normal reaction of pupils, equal size. NOSE: Clear with pink turbinates. THROAT: No erythema or exudates. NECK: No masses, no JVD. CHEST: No chest wall deformity. LUNGS: Equal air entry with few scattered rhonchi over the left lung. CVS: S1 and S2 normal with no audible murmur, regular rhythm. ABDOMEN: No hepatosplenomegaly, normal bowel sounds, no guarding or rigidity. SPINE: No scoliosis or deformity SKIN: No rashes CENTRAL NERVOUS SYSTEM: No focal deficits, tone is normal in all 4 extremities. EXTREMITIES: There is no peripheral edema. No clubbing, no cyanosis. Peripheral pulses are intact. - Labs CBC & Chem 7: 12/25/21 07:04 12/25/21 07:04 Labs: Abnormal Lab Results - Last 24 Hours (Table) 12/25/21 12/25/21 Range/Units 07:04 07:04 RBC 2.90 L (4.40-5.60) X 10*6/uL Hgb 8.4 L (13.0-17.0) g/dL Hct 26.1 L (39.6-50.0) % MPV 8.6 L (9.5-12.2) fL Lymphocytes # 0.87 L (0.90-5.00) X 10*3/uL Chloride 111 H (96-109) mmol/L Carbon Dioxide 18.7 L (20.0-27.5) mmol/L Est GFR (CKD-EPI)NonAf 53.6 L (60.0-200.0) Microbiology - Last 24 Hours (Table) 12/23/21 15:25 Blood Culture - Preliminary Blood No Growth after 48 hours 12/23/21 15:10 Blood Culture - Preliminary Blood No Growth after 48 hours Assessment and Plan Assessment: Left hip pain being worked up for possible left hip arthroplasty found to have abnormal labs and referred to the hospital for anemia, renal failure 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 No evidence of pneumonia. Pro-calcitonin 0.08. No leukocytosis. No fever. Antibiotics discontinued Chronic tobacco dependence of 45 years at 1 pack per day, states quit 3 weeks ago Acute renal failure suspect secondary to increased amount of NSAIDs, hydrochlorothiazide. Improved, current creatinine 1.4 GFR 54 Anemia of unclear etiology, current hemoglobin 8.4 Hypertension Plan: The patient was seen and evaluated Awaiting FNA of left upper lobe cavitary lesion If IR not able to perform the procedure today we'll scheduled for bronchoscopy tomorrow Stable and on room air Continues on normal saline at 100 ML's per hour Will need outpatient PET scan We will continue to follow I have personally seen and examined the patient, performed the documentation and the assessment and plan as written. Number of minutes spent on the visit: 10.
[2021-12-26] MEDS: HEPARIN SODIUM,PORCINE/PF 5,000 UNIT/0.5 ML SYRINGE SQ SCH ×2 (08:43→20:22)
[2021-12-26] MEDS: buPROPion XL 150 MG TAB.ER.24H PO SCH (09:48)
[2021-12-26] MEDS: PANTOPRAZOLE 40 MG TABLET PO SCH (09:48)
[2021-12-26] MEDS: LOSARTAN-HCTZ 50-12.5 MG 1 EACH TAB PO SCH (09:55)
[2021-12-26 10:35] LABS: INR 0.9 (<1.2); Prothrombin Time 10.3 sec (9.0-12.0)
--- NOTE | 2021-12-26 15:04 | NM ---
EXAMINATION TYPE: NM bone scan whole body DATE OF EXAM: 12/26/2021 COMPARISON: CT chest 12/23/2021, KUB 12/23/2021 HISTORY: Lung mass, left hip pain Delayed whole-body scanning was performed following the injection of 22.8 mCi Tc 99m MDP. Images acq uired 5.25 hours post injection. FINDINGS: Marked uptake in the left hip correlates to the abnormal appearance to the left femoral head, left hi p joint. Uptake within the feet, ankles, knees, hands and wrists, elbows and shoulders, sternomanubri al joints is likely degenerative. Uptake in the cervical spine, lumbar spine is indeterminate but may be degenerative, approximately L3. Soft tissue uptake is normal. Uptake along the right 10th rib is mild but asymmetric. IMPRESSION: Abnormal uptake is primarily thought to be degenerative, possible osteonecrosis and secondary osteoar thritic changes to the left hip. Indeterminate uptake involving the right 10th rib and L3 vertebral b ambrosio, MRI may be of benefit.
[2021-12-26] MEDS ORDERED: VANCOMYCIN IV PER PHARMACY 1 EACH MISC MISCELLANE PRN (19:38)
[2021-12-26] MEDS ORDERED: VANCOMYCIN 1,250 MG in SODIUM CHLORIDE 0.9% 250 ML IVPB SCH (21:00)
[2021-12-27] MEDS: HYDROmorphone 1 MG/ML 1 ML SYRINGE IVP PRN ×4 (00:23→20:46)
--- NOTE | 2021-12-27 06:49 | PN ---
PROGRESS NOTE DATE OF SERVICE: 12/26/2021 SUBJECTIVE: This is a 56-year-old gentleman who was admitted with left upper lobe mass. The patient is slated to have interventional radiology biopsy today. No chest pain. No palpitation. PHYSICAL EXAMINATION: VITAL SIGNS: Pulse is 68, blood pressure 155/85, respirations 17. CHEST: Clear to auscultation. CARDIOVASCULAR: S1, S2. ABDOMEN: Soft. NERVOUS SYSTEM: No focal deficits. LABS: Reviewed. ASSESSMENT: 1. Left upper lobe mass lesion versus pneumonia. 2. Increased creatinine with possible acute renal failure, present on admission. 3. History of nicotine dependence. RECOMMENDATIONS: I recommend to continue current management and symptomatic treatment. Otherwise, continue the antibiotics. Interventional Radiology consultation and possible biopsy. Closely follow with Pulmonary. Prognosis guarded. MMODL / IJN: [id number] /
--- NOTE | 2021-12-27 08:20 | P.PN ---
Subjective Progress Note Date: 12/27/21 This a very pleasant 56-year-old male patient who follows with Dr. Chandana Munoz as his primary care provider. He has a history of hypertension, chronic tobacco dependence of 45 years, left hip pain and was planning on having a left hip arthroplasty. During the preop workup he was found to have a hemoglobin of 9.5 and a creatinine of 2.37 and was recommended by his PCP to be evaluated here he was seen in the emergency room yesterday. He has been taking a lot of ibuprofen for the pain. He is maintained on Hyzaar and Wellbutrin. White count 7.1. Hemoglobin 10.8. Sodium 141. Potassium 3.6. Bicarb 19. BUN 27. Creatinine 1.96. AST 38. ALT 80. Barfield virus by PCR not detected. A KUB x-ray revealed ileus or enteritis. Destructive appearance of left femoral head. Abnormal attenuation in the left upper lobe. Chest x-ray revealed increased attenuation present on the left upper lobe suggestive pleural base margin, extension the left hilar region. Computed tomography scan of the chest revealed moderate emphysema/COPD. There is a large area of consolidation measuring 11.7 x 5.7 cm along the periphery of the left upper lobe. Equivocal for cavitary neoplasm with surrounding pneumonia versus pearly and purely infectious process. The patient is seen in consultation for the same. He is currently resting comfortably in bed. Awake and alert in no acute distress. He denies any sh ortness of breath, cough or congestion. No fever, chills or night sweats. No hemoptysis. He has lost about 5 pounds in the past 3 months. No leukocytosis. Pro calcitonin 0.08. He is maintaining O2 saturation 98% on room air. Afebrile. Hemodynamically stable. Reevaluated today on 12/25/21, patient is doing well, relatively asymptomatic, hopefully the patient will undergo CT-guided needle biopsy/FNA of the left upper lobe mass. And I believe the patient could be considered for discharge home after his and follow-up on outpatient basis. Needs outpatient workup for underlying malignancy involving the left upper lobe. The patient is seen today 12/26/2021 in follow-up on the regular medical floor. He is currently resting comfortably in bed. Maintaining O2 saturations in the 90s on room air. Afebrile. Hemodynamically stable. Creatinine has improved and most recently is 1.4. Hemoglobin 8.4. Continues on normal saline at 100 ML's per hour. The plan is for interventional radiology to perform a CT-guided fine-needle aspirate of the left upper lobe cavitary lesion. He is currently nothing by mouth. The patient is seen today 12/27/2021 in follow-up on the regular medical floor. Currently sitting up in bed. Awake and alert in no acute distress. Still having some left hip discomfort. Lung scan revealed evidence of arthritis. Lung biopsy was not performed by interventional radiology yesterday. The plan is for possible biopsy today. Procalcitonin 0.06. He is maintaining good O2 saturations in the 90s on room air. He has normal saline at 100 mL per hour. Preliminary blood culture positive for gram-positive cocci. Initiated on vancomycin. Objective - Vital Signs Vital signs: Vital Signs Temp 98.5 F 12/27/21 03:51 Pulse 73 12/27/21 03:51 Resp 16 12/27/21 03:51 BP 144/74 12/27/21 03:51 Pulse Ox 96 12/27/21 03:51 FiO2 Intake & Output 12/26/21 12/27/21 12/27/21 18:59 06:59 18:59 Intake Total 1750 Balance 1750 Intake: Intake, IV Titration 1450 Amount Sodium Chloride 0.9% 1, 1200 000 ml @ 100 mls/hr IV . Q10H [facility] Rx#:[id number] Vancomycin 1,250 mg In 250 Sodium Chloride 0.9% 250 ml @ 125 mls/hr IVPB Q12H [facility] Rx#:[id number] Oral 300 Other: Voiding Method Toilet Toilet Urinal Urinal # Voids 5 3 # Bowel Movements 1 - Exam GENERAL EXAM: 56-year-old pale male patient, on room air, resting comfortably in bed, in no apparent distress. HEAD: Normocephalic. EYES: Normal reaction of pupils, equal size. NOSE: Clear with pink turbinates. THROAT: No erythema or exudates. NECK: No masses, no JVD. CHEST: No chest wall deformity. LUNGS: Equal air entry with few scattered rhonchi over the left lung. CVS: S1 and S2 normal with no audible murmur, regular rhythm. ABDOMEN: No hepatosplenomegaly, normal bowel sounds, no guarding or rigidity. SPINE: No scoliosis or deformity SKIN: No rashes CENTRAL NERVOUS SYSTEM: No focal deficits, tone is normal in all 4 extremities. EXTREMITIES: There is no peripheral edema. No clubbing, no cyanosis. Peripheral pulses are intact. - Labs CBC & Chem 7: 12/25/21 07:04 12/25/21 07:04 Labs: Microbiology - Last 24 Hours (Table) 12/23/21 15:10 Blood Culture Gram Stain - Preliminary Blood 12/23/21 15:10 Blood Culture - Final Blood 12/23/21 15:25 Blood Culture - Preliminary Blood No Growth after 72 hours Assessment and Plan Assessment: Left hip pain being worked up for possible left hip arthroplasty found to have abnormal labs and referred to the hospital for anemia, renal failure 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 No evidence of pneumonia. Pro-calcitonin 0.06. No leukocytosis. No fever. Chronic tobacco dependence of 45 years at 1 pack per day, states quit 3 weeks ago Acute renal failure suspect secondary to increased amount of NSAIDs, hydrochlorothiazide. Improved, current creatinine 1.4 GFR 54 Anemia of unclear etiology, current hemoglobin 8.4 Hypertension Preliminary blood culture with gram-positive cocci, initiated on vancomycin, suspect contamination, Procalcitonin 0.06. Plan: The patient was seen and evaluated Awaiting FNA of left upper lobe cavitary lesion Stable and on room air Monitor hemoglobin Monitor blood cultures Will need outpatient PET scan I have personally seen and examined the patient, performed the documentation and the assessment and plan as written. Number of minutes spent on the visit: 10.
[2021-12-27] MEDS ORDERED: VANCOMYCIN IV PER PHARMACY 1 EACH MISC MISCELLANE PRN (08:21)
[2021-12-27] MEDS: HEPARIN SODIUM,PORCINE/PF 5,000 UNIT/0.5 ML SYRINGE SQ SCH ×2 (08:30→20:46)
[2021-12-27] MEDS: VANCOMYCIN 1,250 MG in SODIUM CHLORIDE 0.9% 250 ML IVPB SCH ×2 (08:35→20:47)
[2021-12-27] MEDS: buPROPion XL 150 MG TAB.ER.24H PO SCH (08:50)
[2021-12-27] MEDS: LOSARTAN-HCTZ 50-12.5 MG 1 EACH TAB PO SCH (08:50)
[2021-12-27] MEDS: PANTOPRAZOLE 40 MG TABLET PO SCH (08:51)
[2021-12-27 09:16] LABS: Basophils # (A) 0.04 X 10*3/uL (0.00-0.10); Basophils % (A) 0.6 %; Eosinophils # (A) 0.16 X 10*3/uL (0.04-0.35); Eosinophils % (A) 2.3 %; HCT 25.9 % (39.6-50.0); HGB 8.3 g/dL (13.0-17.0); Immature Grans, Automated 0.6 %; Lymphocytes # (A) 1.03 X 10*3/uL (0.90-5.00); Lymphocytes % (A) 14.6 %; MCH 28.8 pg (27.0-32.0); MCV 89.9 fL (80.0-97.0); Mean Platelet Volume 8.8 fL (9.5-12.2); Monocytes # (A) 0.74 X 10*3/uL (0.20-1.00); Monocytes % (A) 10.5 %; NRBC Per 100 WBC 0 /100 WBCS (0.0-0.0); Neutrophils # (A) 5.03 X 10*3/uL (1.80-7.70); Neutrophils % (A) 71.4 %; Platelet Count 319 X 10*3/uL (140-440); RBC 2.88 X 10*6/uL (4.40-5.60); RDW 12.9 % (11.5-14.5); WBC 7.04 X 10*3/uL (4.50-10.00)
[2021-12-27 10:22] LABS: African American GFR (CKD) 76.8 (60.0-200.0); Anion Gap 12.8 mmol/L (10.00-18.00); BUN/Creat Ratio 10.33 Ratio (12.00-20.00); Blood Urea Nitrogen 12.4 mg/dL (9.0-27.0); Non-African American GFR(CKD) 66.3 (60.0-200.0); Potassium 3.7 mmol/L (3.5-5.5)
[2021-12-27] MEDS: SODIUM CHLORIDE 0.9% 1,000 ML IV SCH ×2 (11:41→19:55)
--- NOTE | 2021-12-27 23:42 | P.CONS ---
History of Present Illness - Reason for Consult Consult date: 12/27/21 Positive blood culture Requesting physician: Ty Valverde - Chief Complaint Abnormal labs x few days - History of Present Illness Patient is a 56-year-old male presented to the hospital 4 days ago after the patient was noticed to have abnormal lab patient did have a evidence of anemia and elevated creatinine hemoglobin was down to 9.5 and creatinine 2.37 patient did not have any active symptoms and denies having any fever or any chills patient denies having any chest pain or shortness of breath or cough no nausea no vomiting no abdominal pain or any diarrhea with the symptoms the patient has been evaluated by the ER physician on arrival to the ER patient was afebrile and no fever have been recorded subsequently patient did have a normal white count did have elevated sed rate creatinine down to 1.4 ALT is mildly elevated patient did have a normal procalcitonin urine has been negative stool for occult blood was negative COVID testing was negative patient did have a chest x-ray correlate for left upper lobe pneumonia follow-up to resolution to exclude left upper lobe mass patient also have a CT of the chest large area of consolidation measuring 11.7 X5 0.7 cm periphery of left upper lobe concerning for cavitary neoplasm with surrounding pneumonia patient blood cultures coming back positive with gram-positive that has prompted this infectious disease consultation patient was started on vancomycin pharmacy to dose Review of Systems Positive point has been mentioned in the HPI rest of the systems are negative Past Medical History Past Medical History: Hearing Disorder / Deafness, Osteoarthritis (OA) History of Any Multi-Drug Resistant Organisms: None Reported Past Surgical History: No Surgical Hx Reported Past Anesthesia/Blood Transfusion Reactions: No Reported Reaction Past Psychological History: No Psychological Hx Reported Smoking Status: Former smoker Past Alcohol Use History: Occasional Past Drug Use History: Marijuana Medications and Allergies Home Medications Medication Instructions Recorded Confirmed Type buPROPion XL [Wellbutrin XL] 150 mg PO DAILY 12/23/21 12/23/21 History Acetaminophen Tab [Tylenol] 650 mg PO Q4H PRN #100 tab 12/30/21 Rx Losartan-Hctz 50-12.5 mg [Hyzaar 1 tab PO BID #60 tab 12/30/21 Rx 50-12.5] Nicotine 14Mg/24Hr Patch [Habitrol] 1 patch TRANSDERM DAILY #14 patch 12/30/21 Rx Pantoprazole [Protonix] 40 mg PO AC-BRKFST #30 tab 12/30/21 Rx Allergies Allergy/AdvReac Type Severity Reaction Status Date / Time No Known Allergies Allergy Verified 12/23/21 10:39 Physical Exam Vitals: Vital Signs Temp Pulse Resp BP Pulse Ox 12/27/21 11:02 97.7 F 66 18 149/82 97 12/27/21 03:51 98.5 F 73 16 144/74 96 12/26/21 21:00 98.1 F 75 16 151/82 95 12/26/21 19:40 16 Intake and Output 12/26/21 12/27/21 12/27/21 22:59 06:59 14:59 Intake Total 1750 Output Total 250 Balance 1750 -250 Intake: Intake, IV Titration 1450 Amount Sodium Chloride 0.9% 1, 1200 000 ml @ 100 mls/hr IV . Q10H [facility] Rx#:[id number] Vancomycin 1,250 mg In 250 Sodium Chloride 0.9% 250 ml @ 125 mls/hr IVPB Q12H [facility] Rx#:[id number] Oral 300 Output: Urine 250 Other: Voiding Method Toilet Toilet Urinal Urinal # Voids 5 3 1 # Bowel Movements 1 GENERAL DESCRIPTION: Middle-aged male lying in bed, no distress. No tachypnea or accessory muscle of respiration use. HEENT: Shows Pallor , no scleral icterus. Oral mucous membrane is dry. No pharyngeal erythema or thrush NECK: Trachea central, no thyromegaly. LUNGS: Unlabored breathing. Decrease intensity of breath sounds No Wheeze or Crackle. HEART: S1, S2, regular rate and rhythm. No loud murmur ABDOMEN: Soft, no tenderness , guarding or rigidity, no organomegaly EXTREMITIES: No edema of feet. SKIN: No rash, no masses palpable. NEUROLOGICAL: The patient is awake, alert, oriented x3, mood and affect normal. Results CBC & Chem 7: 12/27/21 04:23 12/30/21 06:03 Labs: Abnormal Lab Results - Last 24 Hours (Table) 12/27/21 12/27/21 Range/Units 04:23 04:23 RBC 2.88 L (4.40-5.60) X 10*6/uL Hgb 8.3 L (13.0-17.0) g/dL Hct 25.9 L (39.6-50.0) % MPV 8.8 L (9.5-12.2) fL Carbon Dioxide 17.0 L (20.0-27.5) mmol/L BUN/Creatinine Ratio 10.33 L (12.00-20.00) Ratio Microbiology - Last 24 Hours (Table) 12/23/21 15:10 Blood Culture Gram Stain - Preliminary Blood 12/23/21 15:10 Blood Culture - Final Blood 12/23/21 15:25 Blood Culture - Preliminary Blood No Growth after 72 hours Assessment and Plan (1) Bacteremia Current Visit: Yes Status: Acute Code(s): R78.81 - BACTEREMIA SNOMED Code(s): 7662255 Plan: 1patient with a positive blood culture with gram-positive with ID sensitivities pending in this patient presented to hospital with abnormal lab patient did not have any fever during this hospital stay he was noticed to have a large left upper lobe cavitating mass more likely malignancy clinic not behaving as pneumonia in this patient with normal procalcitonin x2 during this admission and do not have any other obvious focus of this bacteremia concerning for possible skin contamination. 2blood culture has been repeated document clearance of bacteremia. 3May continue with the vancomycin while waiting for the culture to finalize. 4await left upper lobe lung biopsy We will follow on clinical condition and cultures to further adjust medication if needed Thank you for this consultation will follow this patient along with you Time with Patient: Greater than 30
[2021-12-28] MEDS: HYDROmorphone 1 MG/ML 1 ML SYRINGE IVP PRN ×2 (04:05→10:11)
[2021-12-28] MEDS: SODIUM CHLORIDE 0.9% 1,000 ML IV SCH ×2 (04:10→14:58)
[2021-12-28] MEDS: PANTOPRAZOLE 40 MG TABLET PO SCH (06:37)
[2021-12-28] MEDS: HEPARIN SODIUM,PORCINE/PF 5,000 UNIT/0.5 ML SYRINGE SQ SCH ×2 (08:42→21:59)
[2021-12-28] MEDS: VANCOMYCIN 1,250 MG in SODIUM CHLORIDE 0.9% 250 ML IVPB SCH (08:42)
--- NOTE | 2021-12-28 08:46 | P.PN ---
Subjective Progress Note Date: 12/28/21 This a very pleasant 56-year-old male patient who follows with Dr. Chandana Munoz as his primary care provider. He has a history of hypertension, chronic tobacco dependence of 45 years, left hip pain and was planning on having a left hip arthroplasty. During the preop workup he was found to have a hemoglobin of 9.5 and a creatinine of 2.37 and was recommended by his PCP to be evaluated here he was seen in the emergency room yesterday. He has been taking a lot of ibuprofen for the pain. He is maintained on Hyzaar and Wellbutrin. White count 7.1. Hemoglobin 10.8. Sodium 141. Potassium 3.6. Bicarb 19. BUN 27. Creatinine 1.96. AST 38. ALT 80. Barfield virus by PCR not detected. A KUB x-ray revealed ileus or enteritis. Destructive appearance of left femoral head. Abnormal attenuation in the left upper lobe. Chest x-ray revealed increased attenuation present on the left upper lobe suggestive pleural base margin, extension the left hilar region. Computed tomography scan of the chest revealed moderate emphysema/COPD. There is a large area of consolidation measuring 11.7 x 5.7 cm along the periphery of the left upper lobe. Equivocal for cavitary neoplasm with surrounding pneumonia versus pearly and purely infectious process. The patient is seen in consultation for the same. He is currently resting comfortably in bed. Awake and alert in no acute distress. He denies any sh ortness of breath, cough or congestion. No fever, chills or night sweats. No hemoptysis. He has lost about 5 pounds in the past 3 months. No leukocytosis. Pro calcitonin 0.08. He is maintaining O2 saturation 98% on room air. Afebrile. Hemodynamically stable. Reevaluated today on 12/25/21, patient is doing well, relatively asymptomatic, hopefully the patient will undergo CT-guided needle biopsy/FNA of the left upper lobe mass. And I believe the patient could be considered for discharge home after his and follow-up on outpatient basis. Needs outpatient workup for underlying malignancy involving the left upper lobe. The patient is seen today 12/26/2021 in follow-up on the regular medical floor. He is currently resting comfortably in bed. Maintaining O2 saturations in the 90s on room air. Afebrile. Hemodynamically stable. Creatinine has improved and most recently is 1.4. Hemoglobin 8.4. Continues on normal saline at 100 ML's per hour. The plan is for interventional radiology to perform a CT-guided fine-needle aspirate of the left upper lobe cavitary lesion. He is currently nothing by mouth. The patient is seen today 12/27/2021 in follow-up on the regular medical floor. Currently sitting up in bed. Awake and alert in no acute distress. Still having some left hip discomfort. Lung scan revealed evidence of arthritis. Lung biopsy was not performed by interventional radiology yesterday. The plan is for possible biopsy today. Procalcitonin 0.06. He is maintaining good O2 saturations in the 90s on room air. He has normal saline at 100 mL per hour. Preliminary blood culture positive for gram-positive cocci. Initiated on vancomycin. The patient is seen today 12/28/2021 in follow-up on the regular medical floor. Awake alert no acute distress. Sitting up at the bedside. Awaiting lung biopsy per interventional radiology. There was computed tomography scan equipment issues yesterday. He denies any shortness of breath, cough or congestion. No fever chills. This man complaint is left hip pain and was planning on having a hip replacement in the near future he is continued on vancomycin, follow-up blood cultures are pending. Creatinine 1.26. GFR 62. Objective - Vital Signs Vital signs: Vital Signs Temp 98.0 F 12/28/21 04:32 Pulse 71 12/28/21 04:32 Resp 14 12/28/21 04:32 BP 149/85 12/28/21 04:32 Pulse Ox 96 12/28/21 04:32 FiO2 Intake & Output 12/27/21 12/28/21 12/28/21 18:59 06:59 18:59 Output Total 250 1300 Balance -250 -1300 Output: Urine 250 1300 Other: Voiding Method Toilet Toilet Urinal Urinal # Voids 1 - Exam GENERAL EXAM: Very pleasant 56-year-old pale male patient, on room air, resting comfortably in bed, in no apparent distress. HEAD: Normocephalic. EYES: Normal reaction of pupils, equal size. NOSE: Clear with pink turbinates. THROAT: No erythema or exudates. NECK: No masses, no JVD. CHEST: No chest wall deformity. LUNGS: Equal air entry with few scattered rhonchi over the left lung. CVS: S1 and S2 normal with no audible murmur, regular rhythm. ABDOMEN: No hepatosplenomegaly, normal bowel sounds, no guarding or rigidity. SPINE: No scoliosis or deformity SKIN: No rashes CENTRAL NERVOUS SYSTEM: No focal deficits, tone is normal in all 4 extremities. EXTREMITIES: There is no peripheral edema. No clubbing, no cyanosis. Peripheral pulses are intact. - Labs CBC & Chem 7: 12/27/21 04:23 12/28/21 06:01 Labs: Abnormal Lab Results - Last 24 Hours (Table) 12/27/21 12/27/21 12/28/21 Range/Units 04:23 04:23 06:01 RBC 2.88 L (4.40-5.60) X 10*6/uL Hgb 8.3 L (13.0-17.0) g/dL Hct 25.9 L (39.6-50.0) % MPV 8.8 L (9.5-12.2) fL Carbon Dioxide 17.0 L (20.0-27.5) mmol/L Creatinine 1.26 H (0.66-1.25) mg/dL BUN/Creatinine Ratio 10.33 L (12.00-20.00) Ratio Microbiology - Last 24 Hours (Table) 12/27/21 04:23 Blood Culture - Preliminary Blood No Growth after 24 hours 12/23/21 15:25 Blood Culture - Preliminary Blood No Growth after 96 hours 12/23/21 15:10 Blood Culture Gram Stain - Preliminary Blood 12/23/21 15:10 Blood Culture - Final Blood Assessment and Plan Assessment: Left hip pain being worked up for possible left hip arthroplasty found to have abnormal labs and referred to the hospital for anemia, renal failure 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 No evidence of pneumonia. Pro-calcitonin 0.06. No leukocytosis. No fever. Chronic tobacco dependence of 45 years at 1 pack per day, states quit 3 weeks ago Acute renal failure suspect secondary to increased amount of NSAIDs, hyd rochlorothiazide. Improved, current creatinine 1.4 GFR 54 Anemia of unclear etiology, current hemoglobin 8.4 Hypertension Preliminary blood culture with gram-positive cocci, initiated on vancomycin, suspect contamination, Procalcitonin 0.06. Plan: The patient was seen and evaluated Labs and medications reviewed Follow-up blood cultures pending Awaiting FNA of left upper lobe cavitary lesion Stable and on room air Could be discharged home after biopsies today Will need outpatient PET scan I have personally seen and examined the patient, performed the documentation and the assessment and plan as written. Number of minutes spent on the visit: 10.
[2021-12-28] MEDS: buPROPion XL 150 MG TAB.ER.24H PO SCH (09:17)
[2021-12-28] MEDS: LOSARTAN-HCTZ 50-12.5 MG 1 EACH TAB PO SCH (09:18)
[2021-12-28] MEDS: NAPROXEN 250 MG TAB PO SCH ×2 (10:41→14:58)
--- NOTE | 2021-12-28 10:55 | P.PN ---
Subjective Progress Note Date: 12/27/21 Patient is a 56-year-old male who was admitted due to left upper lobe mass found during preoperative evaluation for hip surgery. 12/27/2021 Patient is currently on the medical floor. No complaints of chest pain or shortness breath. Awake alert and oriented 3. Bowels scan was done today. No compressive fever or chills. Possibly interventional guided lung biopsy to be performed today. Otherwise patient's blood cultures positive for gram-positive cocci and was started on vancomycin. Follow final culture report and repeat blood cultures were ordered. ID was consulted. Patient denied any complaints of dysuria or hematuria. No cough or sputum production. Afebrile. No nausea vomiting or abdominal pain or diarrhea. Current medications reviewed. Objective - Vital Signs Vital signs: Vital Signs Temp 97.8 F 12/27/21 12:08 Pulse 76 12/27/21 12:08 Resp 16 12/27/21 12:08 BP 168/82 12/27/21 12:08 Pulse Ox 97 12/27/21 11:02 FiO2 Intake & Output 12/27/21 12/27/21 12/28/21 06:59 18:59 06:59 Intake Total 1750 Output Total 250 Balance 1750 -250 Intake: Intake, IV Titration 1450 Amount Sodium Chloride 0.9% 1, 1200 000 ml @ 100 mls/hr IV . Q10H [facility] Rx#:[id number] Vancomycin 1,250 mg In 250 Sodium Chloride 0.9% 250 ml @ 125 mls/hr IVPB Q12H [facility] Rx#:[id number] Oral 300 Output: Urine 250 Other: Voiding Method Toilet Toilet Urinal Urinal # Voids 3 1 - Exam PHYSICAL EXAMINATION: Patient is lying in the bed comfortably, no acute distress, awake alert and oriented.. HEENT: Normocephalic. Neck is supple. Pupils reactive. Nostrils clear. Oral cavity is moist. Neck reveals no JVD, carotid bruits, or thyromegaly. CHEST EXAMINATION: Trachea is central. Symmetrical expansion. Lung jones clear to auscultation and percussion. CARDIAC: Normal S1, S2 with no gallops. No murmurs ABDOMEN: Soft. Bowel sounds normal. No organomegaly. No abdominal bruits. Extremities: reveal no edema. No clubbing or cyanosis Neurologically awake, alert, oriented x3 with well-coordinated movements. No focal deficits noted Skin: No rash or skin lesions. Psychiatric: Coperative. Nonsuicidal Musculoskeletal: No joint swelling or deformity. Normal range of motion. 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 Elevating IR guided biopsy. Left hip pain and is scheduled for total hip replacement. Sent to ER due to abnormal finding during preoperative workup. Osteoarthritis Chronic nicotine addiction. Acute kidney injury likely prerenal and increased NSAID use recently. hypertension Normocytic anemia with hemoglobin 8.4 Positive blood cultures with gram-positive cocci. Follow final culture report and repeat blood cultures. GI and DVT prophylaxis Plan: Patient will be continued on IV hydration and is scheduled for IR guided lung biopsy. Status post bone scan today. Follow up renal function. Patient was started on vancomycin and follow final culture report and repeat blood tests ordered. ID was consulted. Pulmonary is on board. Continue with home medications and follow closely. Time with Patient: Greater than 30
--- NOTE | 2021-12-28 15:08 | P.PN ---
Progress Note - Text Progress Note Date: 12/28/21 Patient is a 56-year-old male who was admitted due to left upper lobe mass found during preoperative evaluation for hip surgery. 12/27/2021 Patient is currently on the medical floor. No complaints of chest pain or shortness breath. Awake alert and oriented 3. Bowels scan was done today. No compressive fever or chills. Possibly interventional guided lung biopsy to be performed today. Otherwise patient's blood cultures positive for gram-positive cocci and was started on vancomycin. Follow final culture report and repeat blood cultures were ordered. ID was consulted. Patient denied any complaints of dysuria or hematuria. No cough or sputum production. Afebrile. No nausea vomiting or abdominal pain or diarrhea. 12/28/2021: I assumed care of the patient from [facility] today. Patient is resting in the bed. at the bedside. Patient has chronic pain. Has been getting IV Dilaudid here. We'll stop the same. Use naproxen. The pain is chronic. Patient repeat blood cultures pending. Discussed with the patient and . Active Medications Alprazolam (Alprazolam 0.25 Mg Tab) 0.25 mg PO TID PRN PRN Reason: Anxiety Bupropion HCl (Bupropion Xl 150 Mg Tab.Er.24h) 150 mg PO DAILY [facility] Last Admin: 12/28/21 09:17 Dose: 150 mg HCTZ/Losartan Potassium (Losartan-Hctz 50-12.5 Mg 1 Each Tab) 1 each PO DAILY [facility] Last Admin: 12/28/21 09:18 Dose: 1 each Heparin Sodium (Porcine) (Heparin Sodium,Porcine/Pf 5,000 Unit/0.5 Ml Syringe) 5,000 unit SQ Q12HR [facility] Last Admin: 12/28/21 08:42 Dose: 5,000 unit Sodium Chloride (Saline 0.9%) 1,000 mls @ 100 mls/hr IV .Q10H [facility] Last Admin: 12/28/21 04:10 Dose: 100 mls/hr Miscellaneous Information (Pneumonia Protocol Utilized 1 Each Misc) 1 each PO ONCE PRN PRN Reason: Per Protocol Naproxen (Naproxen 250 Mg Tab) 250 mg PO TID [facility] Last Admin: 12/28/21 10:41 Dose: 250 mg Pantoprazole Sodium (Pantoprazole 40 Mg Tablet) 40 mg PO AC-BRKFST [facility] Last Admin: 12/28/21 06:37 Dose: Not Given On examination: VITAL SIGNS: [97.5, 71, 18, 126.72, 92% room air] GENERAL APPEARANCE: Resting in bed, awake, comfortable. HEENT: Normal external appearance of nose and ear. Oral cavity normal. Decreased hearing EYES: Pupils equal. Conjunctiva normal. NECK: JVD not raised. Mass not palpable. RESPIRATORY: Respiratory effort normal. Lungs diminished breath sounds CARDIOVASCULAR: First and second sounds normal. No edema. ABDOMEN: Soft. Liver and spleen not palpable. No tenderness. No mass palpable. PSYCHIATRY: Alert and oriented x3. Mood and affect normal. INVESTIGATIONS, reviewed in the clinical context: WBC 7 hemoglobin 8.3 platelets 319 potassium 3.7 creatinine 1.2 Nuclear medicine bone scan whole body: Abnormal uptake primarily thought to be DJD. CT chest: COPD with moderate emphysema. No JVD of consult old consolidation measuring 11.7 cm x 5.5 cm in the left upper lobe. Possibly Treating neoplasm. Infection cannot be ruled out. 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 Pending IR guided biopsy. -Left hip pain with osteoarthritis scheduled for total hip replacement. Avoid NSAIDs because of abnormal kidney function.. Stop Dilaudid because of chronic pain. Start Ultram -Chronic nicotine dependence -Emphysema and a previous smoker Albuterol when necessary -Acute kidney injury likely ATN and increased NSAID use recently.: Better Follow BMP -Suspect chronic kidney disease stage III from underlying nephrosclerosis -Essential hypertension Hyzaar -Normocytic anemia with hemoglobin 8.4. Likely combination from CK D and possibly from underlying malignancy -Positive blood cultures with gram-positive cocci. Follow final culture report and repeat blood cultures. Discussed with the patient and . Start the patient on Ultram. We will avoid NSAIDs because of renal function. DC IV fluids. Awaiting repeat cultures. Follow with IV.
[2021-12-28] MEDS: traMADol 50 MG TAB PO SCH ×2 (17:08→22:01)
[2021-12-29] MEDS ORDERED: VANCOMYCIN TROUGH DUE 1 EACH MISC MISCELLANE ONE (08:00)
[2021-12-29] MEDS: traMADol 50 MG TAB PO SCH (08:27)
[2021-12-29] MEDS: HEPARIN SODIUM,PORCINE/PF 5,000 UNIT/0.5 ML SYRINGE SQ SCH ×2 (08:27→20:20)
[2021-12-29] MEDS: PANTOPRAZOLE 40 MG TABLET PO SCH (08:27)
[2021-12-29] MEDS: buPROPion XL 150 MG TAB.ER.24H PO SCH (08:28)
[2021-12-29] MEDS: LOSARTAN-HCTZ 50-12.5 MG 1 EACH TAB PO SCH ×2 (08:28→20:20)
--- NOTE | 2021-12-29 09:08 | P.PN ---
Subjective Progress Note Date: 12/29/21 This a very pleasant 56-year-old male patient who follows with Dr. Chandana Munoz as his primary care provider. He has a history of hypertension, chronic tobacco dependence of 45 years, left hip pain and was planning on having a left hip arthroplasty. During the preop workup he was found to have a hemoglobin of 9.5 and a creatinine of 2.37 and was recommended by his PCP to be evaluated here he was seen in the emergency room yesterday. He has been taking a lot of ibuprofen for the pain. He is maintained on Hyzaar and Wellbutrin. White count 7.1. Hemoglobin 10.8. Sodium 141. Potassium 3.6. Bicarb 19. BUN 27. Creatinine 1.96. AST 38. ALT 80. Barfield virus by PCR not detected. A KUB x-ray revealed ileus or enteritis. Destructive appearance of left femoral head. Abnormal attenuation in the left upper lobe. Chest x-ray revealed increased attenuation present on the left upper lobe suggestive pleural base margin, extension the left hilar region. Computed tomography scan of the chest revealed moderate emphysema/COPD. There is a large area of consolidation measuring 11.7 x 5.7 cm along the periphery of the left upper lobe. Equivocal for cavitary neoplasm with surrounding pneumonia versus pearly and purely infectious process. The patient is seen in consultation for the same. He is currently resting comfortably in bed. Awake and alert in no acute distress. He denies any sh ortness of breath, cough or congestion. No fever, chills or night sweats. No hemoptysis. He has lost about 5 pounds in the past 3 months. No leukocytosis. Pro calcitonin 0.08. He is maintaining O2 saturation 98% on room air. Afebrile. Hemodynamically stable. Reevaluated today on 12/25/21, patient is doing well, relatively asymptomatic, hopefully the patient will undergo CT-guided needle biopsy/FNA of the left upper lobe mass. And I believe the patient could be considered for discharge home after his and follow-up on outpatient basis. Needs outpatient workup for underlying malignancy involving the left upper lobe. The patient is seen today 12/26/2021 in follow-up on the regular medical floor. He is currently resting comfortably in bed. Maintaining O2 saturations in the 90s on room air. Afebrile. Hemodynamically stable. Creatinine has improved and most recently is 1.4. Hemoglobin 8.4. Continues on normal saline at 100 ML's per hour. The plan is for interventional radiology to perform a CT-guided fine-needle aspirate of the left upper lobe cavitary lesion. He is currently nothing by mouth. The patient is seen today 12/27/2021 in follow-up on the regular medical floor. Currently sitting up in bed. Awake and alert in no acute distress. Still having some left hip discomfort. Lung scan revealed evidence of arthritis. Lung biopsy was not performed by interventional radiology yesterday. The plan is for possible biopsy today. Procalcitonin 0.06. He is maintaining good O2 saturations in the 90s on room air. He has normal saline at 100 mL per hour. Preliminary blood culture positive for gram-positive cocci. Initiated on vancomycin. The patient is seen today 12/28/2021 in follow-up on the regular medical floor. Awake alert no acute distress. Sitting up at the bedside. Awaiting lung biopsy per interventional radiology. There was computed tomography scan equipment issues yesterday. He denies any shortness of breath, cough or congestion. No fever chills. This man complaint is left hip pain and was planning on having a hip replacement in the near future he is continued on vancomycin, follow-up blood cultures are pending. Creatinine 1.26. GFR 62. The patient is seen today 12/29/2021 in follow-up on the regular medical floor. He is resting comfortably in bed. Awake and alert in no acute distress. Unfortunately the CAT scan machine is still broken and he did not undergo a CT- guided FNA of the left upper lobe lung mass. The plan will be for bronchoscopy with biopsies tomorrow. He denies any worsening shortness of breath, cough or congestion. No hemoptysis. Though only complaint is of left hip pain. Initial blood culture with diphtheroid species. Follow-up blood cultures reveal no growth. No new labs today. He is continued on heparin for DVT prophylaxis. Objective - Vital Signs Vital signs: Vital Signs Temp 97.4 F L 12/29/21 04:12 Pulse 75 12/29/21 04:12 Resp 16 12/29/21 04:12 BP 160/91 12/29/21 04:12 Pulse Ox 98 12/29/21 04:12 FiO2 Intake & Output 12/28/21 12/29/21 12/29/21 18:59 06:59 18:59 Intake Total 1250 Output Total 600 Balance 1250 -600 Intake: Intake, IV Titration 1250 Amount Sodium Chloride 0.9% 1, 1000 000 ml @ 100 mls/hr IV . Q10H [facility] Rx#:[id number] Vancomycin 1,250 mg In 250 Sodium Chloride 0.9% 250 ml @ 125 mls/hr IVPB Q12H [facility] Rx#:[id number] Output: Urine 600 Other: Voiding Method Toilet Urinal - Exam GENERAL EXAM: Alert, pleasant 56-year-old pale male patient, on room air, resting comfortably in bed, in no apparent distress. HEAD: Normocephalic. EYES: Normal reaction of pupils, equal size. NOSE: Clear with pink turbinates. THROAT: No erythema or exudates. NECK: No masses, no JVD. CHEST: No chest wall deformity. LUNGS: Equal air entry with few scattered rhonchi over the left lung. CVS: S1 and S2 normal with no audible murmur, regular rhythm. ABDOMEN: No hepatosplenomegaly, normal bowel sounds, no guarding or rigidity. SPINE: No scoliosis or deformity SKIN: No rashes CENTRAL NERVOUS SYSTEM: No focal deficits, tone is normal in all 4 extremities. EXTREMITIES: There is no peripheral edema. No clubbing, no cyanosis. Peripheral pulses are intact. 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 No evidence of pneumonia. Pro-calcitonin 0.06. No leukocytosis. No fever. Chronic tobacco dependence of 45 years at 1 pack per day, states quit 3 weeks ago Acute renal failure suspect secondary to increased amount of NSAIDs, hydrochlorothiazide. Improved, current creatinine 1.4 GFR 54 Anemia of unclear etiology, current hemoglobin 8.3 Hypertension Preliminary blood culture with gram-positive cocci, initiated on vancomycin, suspect contamination, Procalcitonin 0.06. Plan: The patient was seen and evaluated Labs and medications reviewed Follow-up blood cultures revealed no growth FNA of left upper lobe cavitary lesion is unable to be performed this week The plan will be for bronchoscopy with biopsies tomorrow either inpatient or outpatient Stable and on room air I have personally seen and examined the patient, performed the documentation and the assessment and plan as written. Number of minutes spent on the visit: 10.
--- NOTE | 2021-12-29 14:06 | P.PN ---
Progress Note - Text Progress Note Date: 12/29/21 Patient is a 56-year-old male who was admitted due to left upper lobe mass found during preoperative evaluation for hip surgery. 12/27/2021 Patient is currently on the medical floor. No complaints of chest pain or shortness breath. Awake alert and oriented 3. Bowels scan was done today. No compressive fever or chills. Possibly interventional guided lung biopsy to be performed today. Otherwise patient's blood cultures positive for gram-positive cocci and was started on vancomycin. Follow final culture report and repeat blood cultures were ordered. ID was consulted. Patient denied any complaints of dysuria or hematuria. No cough or sputum production. Afebrile. No nausea vomiting or abdominal pain or diarrhea. 12/28/2021: I assumed care of the patient from [facility] today. Patient is resting in the bed. at the bedside. Patient has chronic pain. Has been getting IV Dilaudid here. We'll stop the same. Use naproxen. The pain is chronic. Patient repeat blood cultures pending. Discussed with the patient and . 12/29/2021: Blood cultures pending. Patient be having a bronchoscopy by Dr. Kaplan tomorrow. Being followed by repeated discussed with the patient and . Blood pressure running on the higher side hence dose of Hyzaar hydrochlorot hiazide twice a day Active Medications Alprazolam (Alprazolam 0.25 Mg Tab) 0.25 mg PO TID PRN PRN Reason: Anxiety Bupropion HCl (Bupropion Xl 150 Mg Tab.Er.24h) 150 mg PO DAILY COUNT INCLUDES [facility] Last Admin: 12/29/21 08:28 Dose: 150 mg HCTZ/Losartan Potassium (Losartan-Hctz 50-12.5 Mg 1 Each Tab) 1 each PO DAILY COUNT INCLUDES THE [facility] Last Admin: 12/29/21 08:28 Dose: 1 each Heparin Sodium (Porcine) (Heparin Sodium,Porcine/Pf 5,000 Unit/0.5 Ml Syringe) 5,000 unit SQ Q12HR COUNT INCLUDES THE [facility] Last Admin: 12/29/21 08: Dose: 5,000 unit Miscellaneous Information (Pneumonia Protocol Utilized 1 Each Misc) 1 each PO ONCE PRN PRN Reason: Per Protocol Pantoprazole Sodium (Pantoprazole 40 Mg Tablet) 40 mg PO AC-BRKFST COUNT INCLUDES THE [facility] Last Admin: 12/29/21 08:27 Dose: 40 mg Tramadol HCl (Tramadol 50 Mg Tab) 50 mg PO TID ROLLY Last Admin: 12/29/21 08:27 Dose: 50 mg On examination: VITAL SIGNS: 97.6, 72, 17, 1 64 x 79, 87% room air GENERAL APPEARANCE: Resting in bed, awake, comfortable. HEENT: Normal external appearance of nose and ear. Oral cavity normal. Decreased hearing EYES: Pupils equal. Conjunctiva normal. NECK: JVD not raised. Mass not palpable. RESPIRATORY: Respiratory effort normal. Lungs diminished breath sounds CARDIOVASCULAR: First and second sounds normal. No edema. ABDOMEN: Soft. Liver and spleen not palpable. No tenderness. No mass palpable. PSYCHIATRY: Alert and oriented x3. Mood and affect normal. INVESTIGATIONS, reviewed in the clinical context: WBC 7 hemoglobin 8.3 platelets 319 potassium 3.7 creatinine 1.2 Nuclear medicine bone scan whole body: Abnormal uptake primarily thought to be DJD. CT chest: COPD with moderate emphysema. No JVD of consult old consolidation measuring 11.7 cm x 5.5 cm in the left upper lobe. Possibly Treating neoplasm. Infection cannot be ruled out. 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 [address] Kaplan tomorrow. -Left hip pain with osteoarthritis scheduled for total hip replacement. Avoid NSAIDs because of abnormal kidney function.. Stop Dilaudid because of chronic pain. Tylenol 3 -Chronic nicotine dependence Nicotine patch -Emphysema and a previous smoker Albuterol when necessary -Acute kidney injury likely ATN and increased NSAID use recently.: Better Follow BMP - chronic kidney disease stage III from underlying nephrosclerosis -Essential hypertension, uncontrolled Hyzaar/HCTZ 50/12.5. Increase to twice a day -Normocytic anemia with hemoglobin 8.4. Likely combination from CK D and possibly from underlying malignancy -Positive blood cultures with gram-positive cocci. Follow final culture report and repeat blood cultures. She is to try to Tylenol 3. 4 bronchoscopy for the lung mass tomorrow. Pending repeat blood cultures. Discussed with patient and .
[2021-12-29] MEDS: Acetaminophen-Codeine 300-30mg TAB PO PRN ×2 (14:32→20:20)
[2021-12-29] MEDS: NICOTINE 14MG/24HR PATCH TRANSDERM SCH (14:33)
[2021-12-30] MEDS: Acetaminophen-Codeine 300-30mg TAB PO PRN ×2 (05:07→15:09)
--- NOTE | 2021-12-30 08:02 | P.PN ---
Subjective Progress Note Date: 12/30/21 This a very pleasant 56-year-old male patient who follows with Dr. Chandana Munoz as his primary care provider. He has a history of hypertension, chronic tobacco dependence of 45 years, left hip pain and was planning on having a left hip arthroplasty. During the preop workup he was found to have a hemoglobin of 9.5 and a creatinine of 2.37 and was recommended by his PCP to be evaluated here he was seen in the emergency room yesterday. He has been taking a lot of ibuprofen for the pain. He is maintained on Hyzaar and Wellbutrin. White count 7.1. Hemoglobin 10.8. Sodium 141. Potassium 3.6. Bicarb 19. BUN 27. Creatinine 1.96. AST 38. ALT 80. Barfield virus by PCR not detected. A KUB x-ray revealed ileus or enteritis. Destructive appearance of left femoral head. Abnormal attenuation in the left upper lobe. Chest x-ray revealed increased attenuation present on the left upper lobe suggestive pleural base margin, extension the left hilar region. Computed tomography scan of the chest revealed moderate emphysema/COPD. There is a large area of consolidation measuring 11.7 x 5.7 cm along the periphery of the left upper lobe. Equivocal for cavitary neoplasm with surrounding pneumonia versus pearly and purely infectious process. The patient is seen in consultation for the same. He is currently resting comfortably in bed. Awake and alert in no acute distress. He denies any sh ortness of breath, cough or congestion. No fever, chills or night sweats. No hemoptysis. He has lost about 5 pounds in the past 3 months. No leukocytosis. Pro calcitonin 0.08. He is maintaining O2 saturation 98% on room air. Afebrile. Hemodynamically stable. Reevaluated today on 12/25/21, patient is doing well, relatively asymptomatic, hopefully the patient will undergo CT-guided needle biopsy/FNA of the left upper lobe mass. And I believe the patient could be considered for discharge home after his and follow-up on outpatient basis. Needs outpatient workup for underlying malignancy involving the left upper lobe. The patient is seen today 12/26/2021 in follow-up on the regular medical floor. He is currently resting comfortably in bed. Maintaining O2 saturations in the 90s on room air. Afebrile. Hemodynamically stable. Creatinine has improved and most recently is 1.4. Hemoglobin 8.4. Continues on normal saline at 100 ML's per hour. The plan is for interventional radiology to perform a CT-guided fine-needle aspirate of the left upper lobe cavitary lesion. He is currently nothing by mouth. The patient is seen today 12/27/2021 in follow-up on the regular medical floor. Currently sitting up in bed. Awake and alert in no acute distress. Still having some left hip discomfort. Lung scan revealed evidence of arthritis. Lung biopsy was not performed by interventional radiology yesterday. The plan is for possible biopsy today. Procalcitonin 0.06. He is maintaining good O2 saturations in the 90s on room air. He has normal saline at 100 mL per hour. Preliminary blood culture positive for gram-positive cocci. Initiated on vancomycin. The patient is seen today 12/28/2021 in follow-up on the regular medical floor. Awake alert no acute distress. Sitting up at the bedside. Awaiting lung biopsy per interventional radiology. There was computed tomography scan equipment issues yesterday. He denies any shortness of breath, cough or congestion. No fever chills. This man complaint is left hip pain and was planning on having a hip replacement in the near future he is continued on vancomycin, follow-up blood cultures are pending. Creatinine 1.26. GFR 62. The patient is seen today 12/29/2021 in follow-up on the regular medical floor. He is resting comfortably in bed. Awake and alert in no acute distress. Unfortunately the CAT scan machine is still broken and he did not undergo a CT- guided FNA of the left upper lobe lung mass. The plan will be for bronchoscopy with biopsies tomorrow. He denies any worsening shortness of breath, cough or congestion. No hemoptysis. Though only complaint is of left hip pain. Initial blood culture with diphtheroid species. Follow-up blood cultures reveal no growth. No new labs today. He is continued on heparin for DVT prophylaxis. The patient is seen today 12/30/2021 in follow-up on the regular medical floor. He is resting comfortably in bed. No worsening shortness of breath, cough or congestion. No hemoptysis. Maintaining O2 saturations in the upper 90s on room air. Afebrile. Hemodynamically stable. Follow-up blood cultures revealed no growth. Creatinine 1.37. GFR 57. He is continued on heparin for DVT prophylaxis. NicoDerm patch in place. Plan is for bronchoscopy with biopsies today. Objective - Vital Signs Vital signs: Vital Signs Temp 98.1 F 12/30/21 05:12 Pulse 64 12/30/21 05:12 Resp 14 12/30/21 05:12 BP 132/73 12/30/21 05:12 Pulse Ox 99 12/30/21 05:12 FiO2 Intake & Output 12/29/21 12/30/21 12/30/21 18:59 06:59 18:59 Output Total 600 Balance -600 Output: Urine 600 Other: Voiding Method Toilet Urinal - Exam GENERAL EXAM: Alert, 56-year-old pale male patient, on room air, resting comfort ably in bed, in no apparent distress. HEAD: Normocephalic. EYES: Normal reaction of pupils, equal size. NOSE: Clear with pink turbinates. THROAT: No erythema or exudates. NECK: No masses, no JVD. CHEST: No chest wall deformity. LUNGS: Equal air entry with few scattered rhonchi over the left lung. CVS: S1 and S2 normal with no audible murmur, regular rhythm. ABDOMEN: No hepatosplenomegaly, normal bowel sounds, no guarding or rigidity. SPINE: No scoliosis or deformity SKIN: No rashes CENTRAL NERVOUS SYSTEM: No focal deficits, tone is normal in all 4 extremities. EXTREMITIES: There is no peripheral edema. No clubbing, no cyanosis. Peripheral pulses are intact. 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 No evidence of pneumonia. Pro-calcitonin 0.06. No leukocytosis. No fever. Chronic tobacco dependence of 45 years at 1 pack per day, states quit 3 weeks ago Acute renal failure suspect secondary to increased amount of NSAIDs, hydrochlorothiazide. Improved, current creatinine 1.4 GFR 54 Anemia of unclear etiology, current hemoglobin 8.3 Hypertension Preliminary blood culture with gram-positive cocci, initiated on vancomycin, suspect contamination, Procalcitonin 0.06. Plan: The patient was seen and evaluated Labs and medications reviewed Follow-up blood cultures revealed no growth Remains stable and on room air The plan is for bronchoscopy with biopsies today We will continue to follow I have personally seen and examined the patient, performed the documentation and the assessment and plan as written. Number of minutes spent on the visit: 10.
[2021-12-30] MEDS: HEPARIN SODIUM,PORCINE/PF 5,000 UNIT/0.5 ML SYRINGE SQ SCH (09:06)
[2021-12-30] MEDS: PANTOPRAZOLE 40 MG TABLET PO SCH (09:27)
[2021-12-30] MEDS: NICOTINE 14MG/24HR PATCH TRANSDERM SCH (09:27)
[2021-12-30] MEDS: LOSARTAN-HCTZ 50-12.5 MG 1 EACH TAB PO SCH ×2 (09:27→16:47)
[2021-12-30] MEDS: buPROPion XL 150 MG TAB.ER.24H PO SCH (09:27)
[2021-12-30 10:56] VITALS: BMI 20.5
--- NOTE | 2021-12-30 12:50 | P.PN ---
Progress Note - Text Progress Note Date: 12/30/21 Patient is a 56-year-old male who was admitted due to left upper lobe mass found during preoperative evaluation for hip surgery. 12/27/2021 Patient is currently on the medical floor. No complaints of chest pain or shortness breath. Awake alert and oriented 3. Bowels scan was done today. No compressive fever or chills. Possibly interventional guided lung biopsy to be performed today. Otherwise patient's blood cultures positive for gram-positive cocci and was started on vancomycin. Follow final culture report and repeat blood cultures were ordered. ID was consulted. Patient denied any complaints of dysuria or hematuria. No cough or sputum production. Afebrile. No nausea vomiting or abdominal pain or diarrhea. 12/28/2021: [facility] Patient is resting in the bed. at the bedside. Patient has chronic pain. Has been getting IV Dilaudid here. We'll stop the same. Use naproxen. The pain is chronic. Patient repeat blood cultures pending. Discussed with the patient and . 12/29/2021: Blood cultures pending. Patient be having a bronchoscopy by Dr. Kaplan tomorrow. Being followed by repeated discussed with the patient and . Blood pressure running on the higher side hence dose of Hyzaar hydrochlorot hiazide twice a day 12/30/2021: Saw the patient this morning. Pending bronchoscopy. Otherwise stable. Blood pressure better controlled. Repeat blood cultures negative to now. Active Medications Acetaminophen/Codeine Phosphate (Acetaminophen-Codeine 300-30mg Tab) 1 each PO Q6HR PRN PRN Reason: Pain Last Admin: 12/30/21 05:07 Dose: 1 each Alprazolam (Alprazolam 0.25 Mg Tab) 0.25 mg PO TID PRN PRN Reason: Anxiety Bupropion HCl (Bupropion Xl 150 Mg Tab.Er.24h) 150 mg PO DAILY [facility] Last Admin: 12/30/21 09:27 Dose: 150 mg HCTZ/Losartan Potassium (Losartan-Hctz 50-12.5 Mg 1 Each Tab) 1 each PO BID ROLLY Last Admin: 12/30/21 09:27 Dose: 1 each Heparin Sodium (Porcine) (Heparin Sodium,Porcine/Pf 5,000 Unit/0.5 Ml Syringe) 5,000 unit SQ Q12HR [facility] Last Admin: 12/30/21 09:06 Dose: Not Given Miscellaneous Information (Pneumonia Protocol Utilized 1 Each Misc) 1 each PO ONCE PRN PRN Reason: Per Protocol Nicotine (Nicotine 14mg/24hr Patch) 1 patch TRANSDERM DAILY [facility] Last Admin: 12/30/21 09:27 Dose: Not Given Pantoprazole Sodium (Pantoprazole 40 Mg Tablet) 40 mg PO AC-BRKFST [facility] Last Admin: 12/30/21 09:27 Dose: 40 mg On examination: VITAL SIGNS: 97.4, 75, 16, 132/73, 88% room air GENERAL APPEARANCE: Declining in bed, awake, comfortable. HEENT: Normal external appearance of nose and ear. Oral cavity normal. Decreased hearing EYES: Pupils equal. Conjunctiva normal. NECK: JVD not raised. Mass not palpable. RESPIRATORY: Respiratory effort normal. Lungs diminished breath sounds CARDIOVASCULAR: First and second sounds normal. No edema. ABDOMEN: Soft. Liver and spleen not palpable. No tenderness. No mass palpable. PSYCHIATRY: Alert and oriented x3. Mood and affect normal. INVESTIGATIONS, reviewed in the clinical context: WBC 7 hemoglobin 8.3 platelets 319 potassium 3.7 creatinine 1.2 Nuclear medicine bone scan whole body: Abnormal uptake primarily thought to be DJD. CT chest: COPD with moderate emphysema. No JVD of consult old consolidation measuring 11.7 cm x 5.5 cm in the left upper lobe. Possibly Treating neoplasm. Infection cannot be ruled out. 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 Pending bronchoscopy per Dr. Kaplan today -Left hip pain with osteoarthritis scheduled for total hip replacement. Avoid NSAIDs because of abnormal kidney function.. Stop Dilaudid because of chronic pain. Tylenol 3 -Chronic nicotine dependence Nicotine patch -Emphysema and a previous smoker Albuterol when necessary -Acute kidney injury likely ATN and increased NSAID use recently.: Better Follow BMP - chronic kidney disease stage III from underlying nephrosclerosis -Essential hypertension, uncontrolled Hyzaar/HCTZ 50/12.5. Increase to twice a day -Normocytic anemia with hemoglobin 8.4. Likely combination from CK D and possibly from underlying malignancy -Positive blood cultures with gram-positive cocci. Follow final culture report and repeat blood cultures. Pending bronchoscopy this afternoon. Medications to continue. Repeat blood cultures are negative to now.
--- NOTE | 2021-12-30 12:56 | CT ---
EXAMINATION TYPE: CT Chest jennifer [facility] Protocol DATE OF EXAM: 12/30/2021 COMPARISON: CT chest 12/23/2021 HISTORY: ADELE BRONCH CT DLP: 627 mGycm Automated exposure control for dose reduction was used. Technique: Limited imaging for navigational bronchoscopy. FINDINGS: Redemonstration of large area of consolidation within the left upper lung peripherally. Findings not significantly changed from 7 days prior. Moderate COPD and emphysema changes are noted. Mild coronary artery atherosclerosis. IMPRESSION: LEFT UPPER LOBE CONSOLIDATION CONCERNING FOR MASS.
[2021-12-30] MEDS ORDERED: LACTATED RINGERS 1,000 ML IV ONE (13:05)
[2021-12-30] MEDS ORDERED: fentaNYL (PF) 50 MCG/ML 2 ML AMP ONE (13:14)
[2021-12-30] MEDS ORDERED: LIDOCAINE 2% INJ 20 MG/ML (2 ML VIAL) ONE (13:14)
[2021-12-30] MEDS ORDERED: LIDOCAINE 4% LTA KIT (4 ML) TOPICAL ONE (13:14)
[2021-12-30] MEDS ORDERED: GLYCOPYRROLATE 0.2 MG/ML 2 ML VIAL ONE (13:14)
[2021-12-30] MEDS ORDERED: NEOSTIGMINE 1 MG/ML 10 ML VIAL ONE (13:14)
[2021-12-30] MEDS ORDERED: SUCCINYLCHOLINE CHLORIDE 200 MG/10 ML VIAL IV ONE (13:14)
[2021-12-30] MEDS ORDERED: ROCURONIUM 10 MG/ML (5 ML VIAL) IV ONE (13:14)
[2021-12-30] MEDS ORDERED: PROPOFOL 10 MG/ML 20 ML VIAL IV ONE (13:14)
[2021-12-30] MEDS ORDERED: MIDAZOLAM 2 MG/2 ML VIAL ONE (13:14)
[2021-12-30] MEDS ORDERED: ONDANSETRON 4 MG/2 ML VIAL ONE (13:22)
--- NOTE | 2021-12-30 15:05 | XR ---
EXAMINATION TYPE: XR chest 1V portable DATE OF EXAM: 12/30/2021 HISTORY: Status post bronchoscopy COMPARISON: 12/24/2021 TECHNIQUE: Single view of the chest is submitted. FINDINGS: Demonstrated are scattered senescent parenchymal change. Left upper lobe pleural-based mass is redemonstrated. There is no evidence for pneumothorax. The heart is stable. Hilar and mediastinal structures are within normal limits. Degenerative changes are seen of the dorsal spine. IMPRESSION: 1. No evidence for pneumothorax at this time.
--- NOTE | 2021-12-30 15:55 | P.DS ---
Providers Date of admission: 12/23/21 14:39 Expected date of discharge: 12/30/21 Attending physician: Nicolás Villa Consults: 12/23/21 14:39 Consult Physician Routine Consulting Provider: Allen King Consult Reason/Comments: Left upper lobe lung mass versus pneumonia Do you want consulting provider notified?: Yes 12/26/21 19:40 Consult Physician Urgent Consulting Provider: Vlad Gay Consult Reason/Comments: Positive blood culture Do you want consulting provider notified?: Yes, Notify in am Primary care physician: Chandana Munoz MD Hospital Course: Patient is a 56-year-old male who was admitted due to left upper lobe mass found during preoperative evaluation for hip surgery. 12/27/2021 Patient is currently on the medical floor. No complaints of chest pain or shortness breath. Awake alert and oriented 3. Bowels scan was done today. No compressive fever or chills. Possibly interventional guided lung biopsy to be performed today. Otherwise patient's blood cultures positive for gram-positive cocci and was started on vancomycin. Follow final culture report and repeat blood cultures were ordered. ID was consulted. Patient denied any complaints of dysuria or hematuria. No cough or sputum production. Afebrile. No nausea vomiting or abdominal pain or diarrhea. 12/28/2021: I assumed care of the patient from [facility] today. Patient is resting in the bed. at the bedside. Patient has chronic pain. Has been getting IV Dilaudid here. We'll stop the same. Use naproxen. The pain is chronic. Patient repeat blood cultures pending. Discussed with the patient and . 12/29/2021: Blood cultures pending. Patient be having a bronchoscopy by Dr. Kaplan tomorrow. Being followed by repeated discussed with the patient and . Blood pressure running on the higher side hence dose of Hyzaar hydrochlorothiazide twice a day 12/30/2021: Saw the patient this morning. Pending bronchoscopy. Otherwise stable. Blood pressure better controlled. Repeat blood cultures negative to now. Later this afternoon nurse called me to inform me that patient was cleared by pulmonary and ID to be discharged. No Antibiotics. Will follow up with pulmonary/oncology/nephrology. Heating pad and Tylenol for chronic pain. Discussion and discharge planning more than 35 minutes On examination: VITAL SIGNS: 97.4, 75, 16, 132/73, 88% room air GENERAL APPEARANCE: Declining in bed, awake, comfortable. HEENT: Normal external appearance of nose and ear. Oral cavity normal. Decreased hearing EYES: Pupils equal. Conjunctiva normal. NECK: JVD not raised. Mass not palpable. RESPIRATORY: Respiratory effort normal. Lungs diminished breath sounds CARDIOVASCULAR: First and second sounds normal. No edema. ABDOMEN: Soft. Liver and spleen not palpable. No tenderness. No mass palpable. PSYCHIATRY: Alert and oriented x3. Mood and affect normal. INVESTIGATIONS, reviewed in the clinical context: WBC 7 hemoglobin 8.3 platelets 319 potassium 3.7 creatinine 1.2 Nuclear medicine bone scan whole body: Abnormal uptake primarily thought to be DJD. CT chest: COPD with moderate emphysema. No JVD of consult old consolidation measuring 11.7 cm x 5.5 cm in the left upper lobe. Possibly Treating neoplasm. Infection cannot be ruled out. 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 bronchoscopy per Dr. Kaplan today -Left hip pain with osteoarthritis scheduled for total hip replacement. Avoid NSAIDs because of abnormal kidney function.. Stop Dilaudid because of chronic pain. Tylenol 3 -Chronic nicotine dependence Nicotine patch -Emphysema and a previous smoker Albuterol when necessary -Acute kidney injury likely ATN and increased NSAID use recently.: Better Follow BMP - chronic kidney disease stage III from underlying nephrosclerosis -Essential hypertension, uncontrolled Hyzaar/HCTZ 50/12.5. Increase to twice a day -Normocytic anemia with hemoglobin 8.4. Likely combination from CK D and possibly from underlying malignancy -Positive blood cultures with gram-positive cocci. Likely contaminant. No antibiotics per ID. Disposition: Home Patient Condition at Discharge: Stable Plan - Discharge Summary Discharge Rx Participant: No New Discharge Prescriptions: No Action Ibuprofen [Motrin Ib] 600 mg PO Q8H PRN PRN Reason: Pain Losartan-Hctz 50-12.5 mg [Hyzaar 50-12.5] 1 tab PO DAILY buPROPion XL [Wellbutrin XL] 150 mg PO DAILY Discharge Medication List Ibuprofen [Motrin Ib] 600 mg PO Q8H PRN 12/23/21 [History] Losartan-Hctz 50-12.5 mg [Hyzaar 50-12.5] 1 tab PO DAILY 12/23/21 [History] buPROPion XL [Wellbutrin XL] 150 mg PO DAILY 12/23/21 [History] Follow up Appointment(s)/Referral(s): Chandana Munoz MD [Primary Care Provider] - 01/09/22 9:45 am Anselmo Kaplan DO [Doctor of Osteopathic Medicine] - 01/09/22 1:30 pm Patient Instructions/Handouts: *Surgery [facility] - Bronchoscopy Discharge Instructions, Acetaminophen/Codeine (By mouth), Pneumonia (DC) Activity/Diet/Wound Care/Special Instructions: Per Dr. Gay, "no antibiotics needed at discharge."
--- NOTE | 2021-12-30 16:01 | P.PN ---
Subjective Progress Note Date: 12/28/21 Principal diagnosis: Positive blood culture Patient is a 56 year male presenting to the hospital with abnormal labs patient also coming of some shortness of breath patient did have CT of the chest with a large area of consolidation concerning for cavitating neoplasm and the patient also have a positive blood culture prompted this infection disease consultation. On today's evaluation that is 12/28/2021, the patient denies having any fever or any chills, the patient is breathing comfortably on room air denies any chest pain shortness of breath or cough no nausea or vomiting no diarrhea Objective - Vital Signs Vital signs: Vital Signs Temp 97.5 F L 12/28/21 11:00 Pulse 71 12/28/21 11:00 Resp 18 12/28/21 11:00 BP 126/72 12/28/21 11:00 Pulse Ox 92 L 12/28/21 11:00 FiO2 Intake & Output 12/27/21 12/28/21 12/28/21 18:59 06:59 18:59 Output Total 250 1300 Balance -250 -1300 Output: Urine 250 1300 Other: Voiding Method Toilet Toilet Urinal Urinal # Voids 1 - Exam GENERAL DESCRIPTION: Middle-age male lying in bed in no distress RESPIRATORY SYSTEM: Unlabored breathing , decreased breath sounds at bases HEART: S1 S2 regular rate and rhythm , ABDOMEN: Soft , no tenderness EXTREMITIES: No edema feet - Labs CBC & Chem 7: 12/27/21 04:23 12/30/21 06:03 Labs: Abnormal Lab Results - Last 24 Hours (Table) 12/28/21 Range/Units 06:01 Creatinine 1.26 H (0.66-1.25) mg/dL Microbiology - Last 24 Hours (Table) 12/23/21 15:10 Blood Culture - Final Blood 12/23/21 15:10 Blood Culture Gram Stain - Final Blood Blood Culture - Final Diphtheroid species 12/27/21 04:23 Blood Culture - Preliminary Blood No Growth after 24 hours 12/23/21 15:25 Blood Culture - Preliminary Blood No Growth after 96 hours Assessment and Plan (1) Bacteremia Current Visit: Yes Status: Acute Code(s): R78.81 - BACTEREMIA SNOMED Code(s): 9222016 Plan: 1patient with a positive blood culture with gram-positive with ID sensitivities pending in this patient presented to hospital with abnormal lab patient did not have any fever during this hospital stay he was noticed to have a large left upper lobe cavitating mass more likely malignancy clinic not behaving as pneumonia in this patient with normal procalcitonin x2 during this admission and do not have any other obvious focus of this bacteremia concerning for possible skin contamination. 2blood culture has been repeated document clearance of bacteremia. 3patient blood culture had been finalized with diphtheroid species likely skin contamination, we will discontinue vancomycin Time with Patient: Less than 30
--- NOTE | 2021-12-30 16:02 | P.PN ---
Subjective Progress Note Date: 12/29/21 Principal diagnosis: Positive blood culture Patient is a 56 year male presenting to the hospital with abnormal labs patient also coming of some shortness of breath patient did have CT of the chest with a large area of consolidation concerning for cavitating neoplasm and the patient also have a positive blood culture prompted this infection disease consultation. Patient is currently waiting for CT-guided biopsy On today's evaluation that is 12/29/2021, the patient remains to be afebrile, the patient is breathing comfortably on room air, the patient denies any chest pain shortness of breath or cough no nausea or vomiting no diarrhea, Objective - Vital Signs Vital signs: Vital Signs Temp 97.6 F 12/29/21 12:04 Pulse 72 12/29/21 12:04 Resp 17 12/29/21 12:04 BP 164/79 12/29/21 12:04 Pulse Ox 97 12/29/21 12:04 FiO2 Intake & Output 12/28/21 12/29/21 12/29/21 18:59 06:59 18:59 Intake Total 1250 Output Total 600 Balance 1250 -600 Intake: Intake, IV Titration 1250 Amount Sodium Chloride 0.9% 1, 1000 000 ml @ 100 mls/hr IV . Q10H [facility] Rx#:[id number] Vancomycin 1,250 mg In 250 Sodium Chloride 0.9% 250 ml @ 125 mls/hr IVPB Q12H ON LICENSE OF [facility] Rx#:[id number] Output: Urine 600 Other: Voiding Method Toilet Urinal - Exam GENERAL DESCRIPTION: Middle-age male lying in bed in no distress RESPIRATORY SYSTEM: Unlabored breathing , decreased breath sounds at bases HEART: S1 S2 regular rate and rhythm , ABDOMEN: Soft , no tenderness EXTREMITIES: No edema feet - Labs CBC & Chem 7: 12/27/21 04:23 12/30/21 06:03 Labs: Microbiology - Last 24 Hours (Table) 12/27/21 04:23 Blood Culture - Preliminary Blood No Growth after 48 hours 12/23/21 15:25 Blood Culture - Preliminary Blood No Growth after 120 hours Assessment and Plan (1) Bacteremia Current Visit: Yes Status: Acute Code(s): R78.81 - BACTEREMIA SNOMED Code(s): 2381805 Plan: 1patient with a positive blood culture with gram-positive with ID sensitivities pending in this patient presented to hospital with abnormal lab patient did not have any fever during this hospital stay he was noticed to have a large left upper lobe cavitating mass more likely malignancy clinic not behaving as pneumonia in this patient with normal procalcitonin x2 during this admission and do not have any other obvious focus of this bacteremia concerning for possible skin contamination. 2blood culture has been repeated which has been negative so far 3patient blood culture had been finalized with diphtheroid species likely skin contamination, no need for vancomycin Time with Patient: Less than 30
--- NOTE | 2021-12-30 16:03 | P.PN ---
Subjective Progress Note Date: 12/30/21 Principal diagnosis: Positive blood culture Patient is a 56 year male presenting to the hospital with abnormal labs patient also coming of some shortness of breath patient did have CT of the chest with a large area of consolidation concerning for cavitating neoplasm and the patient also have a positive blood culture prompted this infection disease consultation. Patient is still waiting for CT-guided biopsy On today's evaluation that is 12/30/2021, the patient continues to be afebrile, the patient is breathing comfortably on room air, the patient denies any chest pain shortness of breath or cough no nausea or vomiting no diarrhea, patient seemed to be overall feeling better Objective - Vital Signs Vital signs: Vital Signs Temp 97.4 F L 12/30/21 11:48 Pulse 75 12/30/21 11:48 Resp 16 12/30/21 11:48 BP 160/86 12/30/21 11:48 Pulse Ox 98 12/30/21 11:48 FiO2 Intake & Output 12/29/21 12/30/21 12/30/21 18:59 06:59 18:59 Output Total 600 Balance -600 Weight 68.492 kg Output: Urine 600 Other: Voiding Method Toilet Toilet Urinal Urinal - Exam GENERAL DESCRIPTION: Middle-age male lying in bed in no distress RESPIRATORY SYSTEM: Unlabored breathing , decreased breath sounds at bases HEART: S1 S2 regular rate and rhythm , ABDOMEN: Soft , no tenderness EXTREMITIES: No edema feet - Labs CBC & Chem 7: 12/27/21 04:23 12/30/21 06:03 Labs: Abnormal Lab Results - Last 24 Hours (Table) 12/30/21 Range/Units 06:03 Creatinine 1.37 H (0.66-1.25) mg/dL Microbiology - Last 24 Hours (Table) 12/27/21 04:23 Blood Culture - Preliminary Blood No Growth after 72 hours 12/23/21 15:25 Blood Culture - Final Blood No Growth after 144 hours Assessment and Plan (1) Bacteremia Current Visit: Yes Status: Acute Code(s): R78.81 - BACTEREMIA SNOMED Co de(s): 4679839 Plan: 1patient with a positive blood culture with gram-positive with ID sensitivities pending in this patient presented to hospital with abnormal lab patient did not have any fever during this hospital stay he was noticed to have a large left upper lobe cavitating mass more likely malignancy clinic not behaving as pneumonia in this patient with normal procalcitonin x2 during this admission and do not have any other obvious focus of this bacteremia concerning for possible skin contamination. 2blood culture has been repeated which has been negative so far 3patient blood culture had been finalized with diphtheroid species likely skin contamination, vancomycin has been discontinued and there is no need for any antibiotics on discharge Time with Patient: Less than 30
[2021-12-30 18:30] VITALS: BP 145/87; PULSE 107; RESP 16; TEMP 99.6
--- NOTE | 2021-12-31 00:04 | PCN ---
PROCEDURE NOTE PROCEDURE: Navigational bronchoscopy. OPERATORS: Dr. Kaplan and Dr. Lockett. PREOPERATIVE DIAGNOSIS: Left upper lobe mass/infiltrate. POSTOPERATIVE DIAGNOSIS: Left upper lobe mass/infiltrate. ANESTHESIA: General anesthesia provided by Dr. Cruz. DESCRIPTION OF PROCEDURE: The patient's procedure took place in room #1. There was informed consent and universal timeout. The patient was under the effects of general anesthesia. After the patient was adequately sedated, the bronchoscope was inserted through the bronchoscope adapter connected to the endotracheal tube. I did a thorough evaluation of the right upper lobe and its 3 segments, right middle lobe and its 2 segments, right lower lobe and its 5 segments, left upper lobe proper and its 2 segments, lingula and its 2 segments, and left lower lobe and its 4 segments. There was no endobronchial disease. The airways were pristine. Next, under electromagnetic guidance from the Compliance Control device, we localized the lesion in the left upper lobe. It was in the anterior portion of the left upper lobe. We did multiple transbronchial biopsies in this area. In addition, we did needle biopsies in the same area. We also did brushes and washes in the same area. There was no bleeding. The patient tolerated the procedure well. There was no immediate complication. The patient will be recovered. The specimens were sent to the laboratory for analysis. MMODL / IJN: [id number] /
[2021-12-31 00:31] LABS: Appearance,BF Slightly Cloudy
--- NOTE | 2022-01-05 12:26 | CDI ---
Documentation Clarification Form Date: 01/05/2022 12:09:00 PM From: Gloria Barreto Admit Date: 12/23/2021 02:39:00 PM Patient Name: Abdiel Gaona Visit Number: [id number] Discharge Date: 12/30/2021 06:45:00 PM ATTENTION: The Clinical Documentation Specialists (CDI) and [facility] Coding Staff appreciate your assistance in clarifying documentation. Please respond to the clarification below the line at the bottom and electronically sign. The CDI & [facility] Coding staff will review the response and follow-up if needed. Please note: Queries are made part of the Legal Health Record. If you have any questions, please contact the author of this message via ITS. Dr. Nicolás Villa The final diagnosis of the pathology report states non diagnostic of neoplasm. Per OP report diagnosis is SERA mass/infiltrate. Per DCS, SERA mass suspicious for cavity neoplasm. Principal diagnosis needs clarification. Coding guidelines do not allow coding professionals to code based on pathology results; therefore, clarification is requested. History/risk factors: SERA mass with pneumonia per CXR. Anemia, Acute Kidney injury and dehydration Clinical Indicators: SERA mass Treatment: Navagational Bronchoscopy with transbronchial biopsies of area with brushes and washes. Please clarify patient's diagnosis: [ ] Neoplasm [ ] Mass Cavitary [ ] Pneumonia [ ] Other (please specify) [ ] Unable to determine Query should go to arranging funeral director on the case-who is following for that purpose MTDD
--- NOTE | 2022-01-11 09:43 | CDI ---
Documentation Clarification Form Date: 01/05/2022 12:09:00 PM From: Gloria Barreto Admit Date: 12/23/2021 02:39:00 PM Patient Name: Abdiel Gaona Visit Number: [id number] Discharge Date: 12/30/2021 06:45:00 PM ATTENTION: The Clinical Documentation Specialists (CDI) and [facility] Coding Staff appreciate your assistance in clarifying documentation. Please respond to the clarification below the line at the bottom and electronically sign. The CDI & [facility] Coding staff will review the response and follow-up if needed. Please note: Queries are made part of the Legal Health Record. If you have any questions, please contact the author of this message via ITS. Dr. Anselmo Kaplan The final diagnosis of the pathology report states non diagnostic of neoplasm. Per OP report diagnosis is SERA mass/infiltrate. Per DCS, SERA mass suspicious for cavity neoplasm. Principal diagnosis needs clarification. Coding guidelines do not allow coding professionals to code based on pathology results; therefore, clarification is requested. History/risk factors: SERA mass with pneumonia per CXR. Anemia, Acute Kidney injury and dehydration Clinical Indicators: SERA mass Treatment: Navagational Bronchoscopy with transbronchial biopsies of area with brushes and washes. Please clarify patient's diagnosis: [ ] Neoplasm [ ] Mass [ ] Pneumonia [x ] Other (please specify) [ ] Unable to determine Cavitary infiltrare MTDD
== END 2021-12-30 18:45 | disposition home or self-care (01) | DRG 166 ==
LOC: EC 10:24 → 5NMEDONC 14:39
PROVIDERS: ADMIT Hospitalist; ATTEND Hospitalist
PROC: 0BBG8ZX Excision of Left Upper Lung Lobe, Via Natural or Artificial Opening Endoscopic, Diagnostic (ICD-10-PCS; principal; 2021-12-30 13:00)
PROC: 0BDG8ZX Extraction of Left Upper Lung Lobe, Via Natural or Artificial Opening Endoscopic, Diagnostic (ICD-10-PCS; principal; 2021-12-30 13:00)
DX: A15.0 Tuberculosis of lung (principal); N17.0 Acute kidney failure with tubular necrosis; K56.7 Ileus, unspecified; D38.1 Neoplasm of uncertain behavior of trachea, bronchus and lung; I12.9 Hypertensive chronic kidney disease with stage 1 through stage 4 chronic kidney disease, or unspecified chronic kidney disease; F17.210 Nicotine dependence, cigarettes, uncomplicated; N18.30 Chronic kidney disease, stage 3 unspecified; D63.1 Anemia in chronic kidney disease; E86.0 Dehydration; D63.0 Anemia in neoplastic disease; F41.9 Anxiety disorder, unspecified; G89.29 Other chronic pain; H91.90 Unspecified hearing loss, unspecified ear; J43.9 Emphysema, unspecified; K52.9 Noninfective gastroenteritis and colitis, unspecified; M16.12 Unilateral primary osteoarthritis, left hip; Z20.822 Contact with and (suspected) exposure to COVID-19; Z79.899 Other long term (current) drug therapy; Z96.649 Presence of unspecified artificial hip joint; Z79.1 Long term (current) use of non-steroidal anti-inflammatories (NSAID); Z28.311 Partially vaccinated for COVID-19
CPT/HCPCS: 31623; 31624; 31625; 31627; 31629; 36415; 71045; 71046; 71250; 74018; 78306; 80048; 80053; 80202; 81003; 82272; 82550; 82565; 83690; 83735; 84145; 84443; 84484; 85025; 85610; 85652; 86140; 86850; 86900; 86901; 87040; 87070; 87102; 87116; 87205; 87206; 87252; 87496; 87498; 87502; 87529; 87634; 87635; 87798; 88104; 88108; 88305; 89050; 93005; 96365; 96375; 96376; 99285

== ENCOUNTER → 2022-01-20 | Outpatient (CLI) | payer BC ==
--- NOTE | 2022-01-21 10:25 | PE ---
EXAMINATION TYPE: PET CT fusion skull to thigh DATE OF EXAM: 01/20/2022 CLINICAL INDICATION:Male, 56 years old with history of R91.8; TECHNIQUE: Following the intravenous administration of 11.37 mCi of F-18 FDG, whole body images are performed from the skull base to the midthigh. Images are reviewed on the computer in the coronal, axial, and sagittal planes. Reconstructed rotating images are created on independent workstation and reviewed on the computer. A non-contrast CT is performed in conjunction with the PET scan. Glucose 78 100 mg/dL COMPARISON: CT 12/22/2021, PET/CT None, FINDINGS: Mediastinal SUV mean is 1.3. Hepatic parenchyma SUV mean is 2.1. SKULL BASE AND NECK: No suspicious FDG activity. CHEST, MEDIASTINUM, AND HILAR REGION: Cavitating mass within the left upper lobe max SUV 9.6 somewhat linear extension more anteriorly and inferiorly. ABDOMEN AND PELVIS: No suspicious FDG activity. OSSEOUS STRUCTURES: No suspicious FDG activity. OTHER CT: Atherosclerosis of the carotid bifurcations, arterial vasculature and the coronary arteries . Prostate gland is enlarged and 4.8 cm in transverse dimension. End-stage osteoarthrosis changes of the left hip with [id number] articulation and bony deformity of both acetabulum and left femoral he ad. Right adrenal nodularity which does not have increased FDG activity likely representing benign l ipid rich adrenal adenoma versus adenomatous hypertrophy. IMPRESSION: Left upper lung mass with cavitation concerning for malignancy. No enlarged or FDG avid lymph nodes w ithin the mediastinum at this time.
== END | disposition home or self-care (01) ==
LOC: RADPETMAIN 16:27
PROVIDERS: ATTEND Internal Medicine Critical Care Medicine
DX: R91.8 Other nonspecific abnormal finding of lung field (principal)
CPT/HCPCS: 78815; A9552

== ENCOUNTER → 2022-07-19 | Outpatient (CLI) | payer BC ==
[2022-07-19 15:50] LABS: ALT 33 U/L (10-49); AST 22 U/L (14-35); African American GFR (CKD) 63.7 (60.0-200.0); Albumin 4.1 g/dL (3.8-4.9); Albumin/Globulin Ratio 1.41 (1.60-3.17); Alkaline Phosphatase 123 U/L (41-126); BUN/Creat Ratio 21.71 Ratio (12.00-20.00); Blood Urea Nitrogen 30.4 mg/dL (9.0-27.0); Calcium 9.9 mg/dL (8.7-10.3); Carbon Dioxide 21.6 mmol/L (20.0-27.5); Chloride 107 mmol/L (96-109); Globulin 2.9 g/dL (1.6-3.3); Glucose 97 mg/dL (70-110); Potassium 5.2 mmol/L (3.5-5.5); Sodium 141 mmol/L (135-145); Total Bilirubin <0.15 mg/dL (0.30-1.20)
== END | disposition home or self-care (01) ==
LOC: LABWHC1 11:35
PROVIDERS: ATTEND Internal Medicine Critical Care Medicine
DX: A31.0 Pulmonary mycobacterial infection (principal); R78.81 Bacteremia
CPT/HCPCS: 36415; 80053

== ENCOUNTER → 2022-07-25 | Outpatient (CLI) | payer BC ==
--- NOTE | 2022-07-25 13:38 | CT ---
EXAMINATION TYPE: CT chest w con CT DLP: 292 mGycm, Automated exposure control for dose reduction was used. DATE OF EXAM: 07/25/2022 12:34 PM COMPARISON: Pet/CT 01/20/2022, CT chest 12/23/2021 CLINICAL INDICATION:Male, 56 years old with history of R91.8;, f/u lung infection TECHNIQUE: Multiple axial images were obtained through the chest. Sagittal and coronal reformats were created for review. Contrast used:80cc mL of Isovue 300 with IV Contrast Oral contrast used: none. FINDINGS: LUNGS/ PLEURA: Left upper lobe cavitary lesion seen on 01/20/2022 no longer demonstrates cavitation a nd now is solid in appearance measuring 5.7 x 2.9 cm. Trace left pleural effusion. Mild emphysema changes are present. AIRWAY: Patent and unremarkable. HEART: Size within normal limits. MEDIASTINUM: No gross evidence of adenopathy. VASCULATURE: No aortic aneurysm. Mild atherosclerosis of the arterial vasculature. MUSCULOSKELETAL: No acute osseous abnormalities SOFT TISSUES/LYMPH NODES: Mild gynecomastia changes bilaterally. LOWER NECK: No significant findings. UPPER ABDOMEN: Nodular thickening to the left adrenal gland is unchanged from prior and likely repres ents adenomatous hypertrophy changes versus underlying benign adrenal adenoma. IMPRESSION: 1. Left upper lobe 5.9 x 2.9 cm area of consolidation which was previously demonstrating cavitation remains present. This is smaller than the prior larger cavitating lesion present on 01/20/2022. No ev idence for mediastinal lymphadenopathy. 2. Trace/Small left pleural effusion. 3. Mild emphysema changes.
== END | disposition home or self-care (01) ==
LOC: RADCTMAIN 11:55
PROVIDERS: ATTEND Internal Medicine Critical Care Medicine
DX: J43.9 Emphysema, unspecified (principal); J90 Pleural effusion, not elsewhere classified; R91.8 Other nonspecific abnormal finding of lung field
CPT/HCPCS: 71260; Q9967

== ENCOUNTER → 2023-02-02 | Outpatient (CLI) | payer BC ==
[2023-02-02 08:02] LABS: African American GFR (CKD) 70 (>60 ml/min/1.73 sqM); Blood Urea Nitrogen 35 mg/dL (9-20); Non-African American GFR(CKD) 60 (>60 ml/min/1.73 sqM)
--- NOTE | 2023-02-02 10:31 | CT ---
Exam: CT Chest with contrast. Date: 02/02/2023. Comparison: I 22/05/2022. History: Follow-up for infection. Technique: CT examination of the chest was performed following the intravenous administration of 100 mL of Isovue-300. Coronal and sagittal reformats were performed. CT dose lowering techniques were us ed, to include: automated exposure control, adjustment for patient size, and/or use of iterative nash nstruction. FINDINGS: CHEST WALL: Bilateral gynecomastia is noted. Mediastinum and Maribeth: There is no axillary, mediastinal or hilar lymphadenopathy. Pleural and Pericardial spaces: There are no pleural or pericardial effusions. Upper Abdomen: The visualized upper abdomen is unremarkable. Cardiovascular: The thoracic aorta is normal in size without evidence of aneurysm or dissection. Pulmonary Artery: There are no central pulmonary arterial abnormalities. The examination was not per formed to evaluate for pulmonary embolism. Lung Parenchyma and Airways: There is mild upper lobe predominant centrilobular emphysema. The right lung is clear. Masslike area of opacity which appears to be adjacent to surgical changes in the left upper lobe is unchanged since the previous examination. The left lung otherwise appears clear. Bones: No fracture or aggressive osseous lesion. IMPRESSION: 1. Unchanged appearance to mass in the left upper lobe when compared to the previous examination. Mal ignancy would still be in the differential diagnosis. 2. Mild emphysema.
== END | disposition home or self-care (01) ==
LOC: RADCTMAIN 06:42
PROVIDERS: ATTEND Internal Medicine Critical Care Medicine
DX: J43.9 Emphysema, unspecified (principal); R91.8 Other nonspecific abnormal finding of lung field
CPT/HCPCS: 82565; 84520; 71260; 36415; Q9967

== ENCOUNTER 2023-03-14 11:26 | Day surgery (SDC) | payer BC ==
[~2023-03-14 11:26] MED LIST: ATROPINE SULFATE 0.4 MG/ML 1 ML VIAL IM ONE; LACTATED RINGERS 1,000 ML IV SCH; LIDOCAINE 1% (10MG/ML) FOR IV START INTRADERMA PRN
[2023-03-14] MEDS ORDERED: LACTATED RINGERS 1,000 ML IV ONE ×2 (12:07)
[2023-03-14] MEDS ORDERED: LIDOCAINE 2% (PF) 20 MG/ML 5 ML VIAL ONE (12:30)
[2023-03-14] MEDS ORDERED: fentaNYL (PF) 50 MCG/ML 2 ML AMP ONE (12:30)
[2023-03-14] MEDS ORDERED: PROPOFOL 10 MG/ML 20 ML VIAL IV ONE (12:30)
[2023-03-14] MEDS ORDERED: LIDOCAINE 2% INJ 20 MG/ML INTRATRACH ONE (12:34)
[2023-03-14] MEDS ORDERED: LIDOCAINE 2% GLYDO JELLY 6 ML APPL TOPICAL ONE (12:34)
[2023-03-14 12:39] VITALS: TEMP 98.3
[2023-03-14 13:26] VITALS: BP 115/70; PULSE 71; RESP 14
--- NOTE | 2023-03-14 19:05 | PCN ---
PROCEDURE NOTE PROCEDURES PERFORMED: Bronchoscopy; airway examination; therapeutic lavage; BAL, left upper lobe; brushes, left upper lobe. 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 ENGINEERING AIDE: Dr. Kaplan. FIRST PROTOTYPER: Dr. Betsey Lockett. ANESTHESIA PROVIDED: General anesthesia. The patient's procedure was done in room #1 [facility]. There was informed consent and universal timeout. DESCRIPTION OF PROCEDURE: After the patient was adequately sedated, the bronchoscope was inserted through the right nostril. It passed through the right nasopharynx into the oropharynx. The hypopharynx was identified and topicalized. The hypopharyngeal structures, including anterior commissure, true cords, false cords, arytenoids, piriform sinuses, right and left, and vallecula, all appeared normal. After topicalization, the bronchoscope was pushed through the glottic opening into the trachea. Trachea appeared normal. Tracheal caro was sharp. There were no secretions or lesions within the trachea. Next, we had a thorough evaluation of the right upper lobe and its 3 segments right middle lobe and its 2 segments right lower lobe and its 5 segments, left upper lobe proper and its 2 segments, lingula and its 2 segments and left lower lobe and its 4 segments. The airways looked relatively normal. There was minimal bronchitis. There were minimal secretions. There was no dominant mass or tumor. The mucosa appeared relatively normal. Next, we did brushings to the left upper lobe, specifically the lingula. After that, we did a formal BAL of the left upper lobe. 30 mL of fluid was recovered. It will be sent to the laboratory for analysis along with a brush. There was no immediate complication. The bronchoscope was withdrawn. The patient will be recovered. MMODL / IJN: [id number] /
[2023-03-14 19:10] LABS: Appearance,BF Cloudy (Clear); RBC, Body Fluid 65 /UL (0-2000)
[2023-03-15 09:49] LABS: Nucleated Cells, Body Fluid 15 /UL
== END 2023-03-14 13:39 | disposition home or self-care (01) ==
LOC: ORWHC2ENDO 11:26
PROVIDERS: ATTEND Internal Medicine Critical Care Medicine
DX: A31.0 Pulmonary mycobacterial infection (principal)
CPT/HCPCS: 88104; 88108; 88305; 89050; 88312; 87070; 87205; 87116; 87102; 87206; 31623; 31624; J2001 ×2; J0461; J3010; J2704; 87077; 87186

== ENCOUNTER → 2024-05-23 | Outpatient (CLI) | payer BC ==
--- NOTE | 2024-05-23 19:52 | CT ---
"EXAMINATION TYPE: CT chest w con CT DLP: 312.3 mGycm, Automated exposure control for dose reduction was used. DATE OF EXAM: 05/23/2024 6:03 PM COMPARISON: Chest radiograph 05/20/2024, CT chest 02/02/2023, 07/25/2022, 12/30/2021, 12/23/2021, PET CT 01/20/2022 CLINICAL INDICATION:Male, 58 years old with history of J18.9 PNEUMONIA, UNSPECIFIED ORGANISM; PHH, Co ugh, pneumonia TECHNIQUE: Multiple axial images were obtained through the chest following the administration of 100 cc of Isovue 300. . Coronal and sagittal reformats reviewed. FINDINGS: LUNGS/ PLEURA: Trace right pleural effusion. No pneumothorax. Irregular opacities within the right mi d lung nodularity. Left upper lobe consolidative opacity has mildly decreased in size from prior exam now measuring 3.7 x 2.2 cm (series 3, image 22). Previously measured up to 4.7 x 3.1 cm. Mild centri lobular emphysematous changes. Development of some tiny reticular opacities within the right lung ape x. AIRWAY: There is encasement of the distal trachea by the mediastinal mass with additional encasement of the bilateral main pulmonary arteries with mild narrowing of the right main pulmonary artery. Ther e is occlusion of the right upper lobe bronchus. HEART: Size within normal limits.No pericardial effusion. No significant coronary artery calcificatio ns. MEDIASTINUM: Development of infiltrative heterogenous hypodense mass centered within the mediastina w ith extension into the bilateral hilar regions. This grossly measures 9.4 x 9.6 cm. There is encaseme nt of the distal trachea and its branches. VASCULATURE: Stable aneurysmal dilatation of aortic root measured 4.2 cm. The ascending thoracic aor ta measures up to 3.6 cm. The descending thoracic aorta measures up to 2.7 cm. Narrowing with possibl e invasion of the superior vena cava. Contrast does extend through this region into the right atrium. Encasement with narrowing of the right upper lobe pulmonary vein. Encasement with narrowing of the b ilateral main pulmonary arteries which remain patent. Encasement of the right upper lobe pulmonary ar teries with significant narrowing. No visualized pulmonary embolism. MUSCULOSKELETAL: No acute osseous abnormalities. No aggressive osseous lesion. SOFT TISSUES/LYMPH NODES: Bilateral gynecomastia. LOWER NECK: No significant findings. UPPER ABDOMEN: Stable thickening of the left adrenal gland. Enlarged hypodense right paraesophageal l ymph node near the hiatus measuring up to 1.8 cm (series 3, image 65). Small amount of fluid is ident ified within the mid esophagus before the encasement by the mediastinal mass. IMPRESSION: 1. Development of large mediastinal infiltrative mass with encasement of the surrounding structures. Highly concerning for malignancy. There is encasement of the distal trachea and main bronchi with yola rowing of the right mainstem bronchus and occlusion of the right upper lobe bronchus. Narrowing with possible invasion of the SVC. Encasement with narrowing of the right main pulmonary artery and right upper lobe pulmonary arteries. Additionally there is possible invasion/encasement of the esophagus wi th at least mild narrowing with some residual fluid in the esophagus just before this region. 2. Mildly decreased size of left upper lung mass from prior CT. Raises concern for possible malignanc y. 3. Enlarged right paraesophageal lymph node concerning for metastasis. 4. Trace right pleural effusion. 5. Stable indeterminate thickening of the left adrenal gland. 6. Stable aneurysm dilatation of the aortic root measuring up to 4.2 cm. [facility], , 05/23/2024 7:50 PM A [place] level critical message alert has been initiated for Anselmo Kaplan DO via the Station X 36 0 | Critical Results System on 05/23/2024 7:49 PM. This message alert has been sent to Anselmo Kaplan DO via the preferences provided by the clinician for the receipt of Radiology Critical Findings. [facility] ID [id number]."
== END | disposition home or self-care (01) ==
LOC: RADCTMAIN 17:13
PROVIDERS: ATTEND Internal Medicine Critical Care Medicine
DX: J18.9 Pneumonia, unspecified organism (principal); J39.8 Other specified diseases of upper respiratory tract; R59.0 Localized enlarged lymph nodes; J90 Pleural effusion, not elsewhere classified; I71.9 Aortic aneurysm of unspecified site, without rupture
CPT/HCPCS: 71260; Q9967

== ENCOUNTER 2024-05-28 11:33 | Day surgery (SDC) | payer BC ==
[2024-05-28] MEDS ORDERED: LACTATED RINGERS 1,000 ML IV SCH (12:50)
[2024-05-28 13:01] VITALS: TEMP 98.4
[2024-05-28] MEDS: IV FLUID CONTINUATION 1,000 ML IV ONE (13:06)
[2024-05-28] MEDS: LACTATED RINGERS 1,000 ML IV SCH (13:06)
[2024-05-28] MEDS: ATROPINE SULFATE 0.4 MG/ML 1 ML VIAL IM ONE (13:08)
[2024-05-28] MEDS ORDERED: PROPOFOL 10 MG/ML 20 ML VIAL IV ONE (13:18)
[2024-05-28] MEDS ORDERED: LIDOCAINE 1% INJ 10MG/ML (20 ML MDV) ONE (13:18)
[2024-05-28] MEDS: LIDOCAINE 2% GLYDO JELLY 6 ML APPL MUCOUS MEM ONE (13:23)
[2024-05-28] MEDS: LIDOCAINE 2% INJ 20 MG/ML INTRATRACH ONE (13:24)
[2024-05-28 14:16] VITALS: BP 130/78; PULSE 84; RESP 21
--- NOTE | 2024-05-28 20:18 | PCN ---
PROCEDURE NOTE PROCEDURES: Bronchoscopy, airway examination, therapeutic lavage, BAL right upper lobe, brushes of the main tracheal caro, and also brushes of the right upper lobe and then endobronchial biopsies of the tracheal caro and the right upper lobe. PREOPERATIVE DIAGNOSIS: Mediastinal mass. POSTOPERATIVE DIAGNOSIS: Rule out cancer. [employer] AGENT: Dr. Kaplan. FIRST AIR SUPPORT OPERATIONS OPERATOR: Dr. Betsey Lockett. ANESTHESIA PROVIDED: Monitored anesthesia care by Lise Munoz CRNA. DESCRIPTION OF PROCEDURE: There was informed consent and universal timeout. The patient's procedure was done in room #2 [facility]. After the patient was adequately sedated and being fully monitored, the bronchoscope was inserted through the right nostril. It passed through the right nasopharynx into the oropharynx. The hypopharynx was identified and topicalized. The hypopharyngeal structures, including anterior commissure, true cords, false cords, arytenoids, piriform sinuses, right and left, vallecula, all appeared normal. After topicalization, the bronchoscope was pushed through the glottic opening into the trachea. The trachea itself looked normal proximally in the mid trachea. In the distal trachea, there was an obvious tumor growing into the trachea at the main tracheal caro. The left mainstem distally to the tumor appeared relatively normal and the left upper lobe proper, lingula, left lower lobe all appeared normal as well. On the right side, there was tumor obstructing the right upper lobe. The bronchoscope was now pushed passed the tumor, into the middle lobe or lower lobe. Next, under direct visualization, we did multiple endobronchial biopsies of the main tracheal caro tumor and also under direct visualization, we did biopsies directed toward the tumor obstructing the right upper lobe. There was some bleeding, but we used cold saline to stem the bleeding. Next, we brushed both areas, the main tumor on the tracheal caro and also the tumor in the right upper lobe. Finally, we did wash in area of the right upper lobe. The patient tolerated the procedure well. There was minimal bleeding. We made sure that there was hemostasis before the bronchoscope was withdrawn. The patient tolerated the procedure and was stable throughout the procedure according to Anesthesia. Pictures were taken. One of the pictures was given to the patient's . The patient will be recovered. There was no immediate complication. MMODL / IJN: [id number] /
[2024-05-28 21:24] LABS: Appearance,BF Blood Tinged (Clear); RBC, Body Fluid 25500 /UL (0-2000)
[2024-06-02 11:32] LABS: Nucleated Cells, Body Fluid 600 /UL
== END 2024-05-28 14:19 | disposition home or self-care (01) ==
LOC: ORWHC2ENDO 11:33
PROVIDERS: ATTEND Internal Medicine Critical Care Medicine
DX: C34.11 Malignant neoplasm of upper lobe, right bronchus or lung (principal); J44.1 Chronic obstructive pulmonary disease with (acute) exacerbation; J18.9 Pneumonia, unspecified organism; A31.0 Pulmonary mycobacterial infection; K21.9 Gastro-esophageal reflux disease without esophagitis; I12.9 Hypertensive chronic kidney disease with stage 1 through stage 4 chronic kidney disease, or unspecified chronic kidney disease; N18.30 Chronic kidney disease, stage 3 unspecified; M19.90 Unspecified osteoarthritis, unspecified site; H91.90 Unspecified hearing loss, unspecified ear; Z87.891 Personal history of nicotine dependence; Z79.1 Long term (current) use of non-steroidal anti-inflammatories (NSAID); Z79.51 Long term (current) use of inhaled steroids; Z79.82 Long term (current) use of aspirin; Z79.899 Other long term (current) drug therapy
CPT/HCPCS: 87798 ×3; 87496; 87498; 87529; 88104; 88108; 88305; 89050; 88342; 87502; 87634; 88341; 87070; 87205; 87116; 87102; 87206; 87635; 31625; 31623; 31624; J0461; J2003 ×2; J2704

== ENCOUNTER → 2024-05-30 | Outpatient (CLI) | payer BC ==
--- NOTE | 2024-05-31 08:54 | PE ---
EXAMINATION TYPE: PET CT fusion skull to thigh DATE OF EXAM: 05/30/2024 CLINICAL INDICATION:Male, 58 years old with history of R91.8 LUNG NODULE; TECHNIQUE: Following the intravenous administration of 12.63 mCi of F-18 FDG, whole body images are performed from the skull base to the Mid thigh. Images are reviewed on the computer in the coronal, axial, and sagittal planes. Reconstructed rotating images are created on independent workstation an d reviewed on the computer. A non-contrast CT is performed in conjunction with the PET scan. Glucos e level 111 mg/dL CT DLP: 355 mGycm, Automated exposure control for dose reduction was used. COMPARISON: CT 07/25/2022, 02/02/2023, 05/23/2024, PET/CT 01/20/2022., MRI: None FINDINGS: Mediastinal SUV mean is 2.6. Hepatic parenchyma SUV mean is 3.23. SKULL BASE AND NECK: Presumably physiologic uptake in the posterior right larynx max SUV 10.1 CHEST, MEDIASTINUM, AND HILAR REGION: * Conglomerate mass within the mediastinum. This extends into the right perihilar region along the r ight heart border. This also extends to the AP window. Overall area measures at least 9.3 x 9.8 cm. M ax SUV 21.0 with predominantly peripheral FDG activity and central lower activity. * Left pulmonary hilum lymph node max SUV 6.9. * Right high paratracheal lymph node max SUV 8.1 measuring 13 mm. Left upper lung area of consolidation max SUV 4.0 ABDOMEN AND PELVIS: No suspicious radiotracer activity. MUSCULOSKELETAL STRUCTURES: No suspicious radiotracer activity. OTHER CT: Mild bilateral gynecomastia. Atherosclerosis of the carotid bifurcations. IMPRESSION: Conglomerate mass in the mediastinum with peripheral FDG activity compatible with malignancy. There a re also multiple FDG avid lymph nodes in the mediastinum also present which closely approximate the l arge mass. No evidence for metastatic disease below the diaphragm [facility], , 05/31/2024 8:52 AM
== END | disposition home or self-care (01) ==
LOC: RADPETMAIN 12:38
PROVIDERS: ATTEND Internal Medicine Critical Care Medicine
DX: R91.8 Other nonspecific abnormal finding of lung field (principal); J98.59 Other diseases of mediastinum, not elsewhere classified
CPT/HCPCS: 78815; A9552

== ENCOUNTER 2024-06-12 15:17 | Inpatient (IN) | payer BC ==
--- NOTE | 2024-06-12 15:49 | ED ---
SOB HPI - General Source: patient, family, RN notes reviewed Mode of arrival: EMS Limitations: no limitations <Kiley Givens - Last Filed: 06/12/24 15:48> <Modesta Zamarripa - Last Filed: 06/12/24 19:29> - General Chief Complaint: Shortness of Breath Stated Complaint: MICHELET Time Seen by Provider: 06/12/24 15:30 - History of Present Illness Initial Comments: Quick [id number] male with small cell stage III lung cancer presenting to the emergency department with complaint of difficulty in breathing that has been worsening over the past week. States he has been experiencing mild chest pain and a dry nonproductive cough. Patient is scheduled to start chemotherapy in upcoming weeks (Kiley Givens) 58-year-old male with past medical history of small cell lung cancer stage III who presents emergency department with worsening shortness of breath. States has been going on for the past week. He has had a dry nonproductive cough. He has had audible wheezing for which she has been taking his breathing treatments without improvement. He is supposed to start chemotherapy in the upcoming weeks. Breathing got so severe today that he decided to come in. He denies any fevers. Denies any chest pain to me. Denies any history of any heart problems. Does admit that the cancer has cost some SVC syndrome. He denies any nausea or vomiting. Does admit he has been taking some ibuprofen for his pain. He does have a history of chronic kidney disease. He is taking Decadron 4 mg twice a day. He does not wear oxygen at home. Does arrive with saturation of 89-90%. No other alleviating, precipitating roughing factors (Modesta Zamarripa) - Related Data Home Medications Medication Instructions Recorded Confirmed Albuterol Inhaler [Ventolin Hfa 2 puff INHALATION RT-QID PRN 06/12/24 06/12/24 Inhaler] HYDROcodone/APAP 7.5-325MG [[place] 1 tab PO Q6HR PRN 06/12/24 06/12/24 7.5-325] Ipratropium-Albuterol Nebulize 3 ml INHALATION RT-QID 06/12/24 06/12/24 [Duoneb 0.5 mg-3 mg/3 ml Soln] Lidocaine Viscous 2% [Xylocaine 1 dose MUCOUS MEM DIRECTED 06/12/24 06/12/24 Viscous] Losartan-Hctz 50-12.5 mg [Hyzaar 1 tab PO BID 06/12/24 06/12/24 50-12.5] Omeprazole 20 mg PO DAILY 06/12/24 06/12/24 buPROPion XL [Wellbutrin XL] 150 mg PO DAILY 06/12/24 06/12/24 dexAMETHasone [Decadron] 4 mg PO BID 06/12/24 06/12/24 Allergies Allergy/AdvReac Type Severity Reaction Status Date / Time No Known Allergies Allergy Verified 06/12/24 19:13 Review of Systems ROS Other: All systems not noted in ROS Statement are negative. <Kiley Givens - Last Filed: 06/12/24 15:48> ROS Other: All systems not noted in ROS Statement are negative. <Modesta Zamarripa - Last Filed: 06/12/24 19:29> ROS Statement: Those systems with pertinent positive or pertinent negative responses have been documented in the HPI. Past Medical History Past Medical History: Hypertension, Osteoarthritis (OA), Renal Disease Additional Past Medical History / Comment(s): chronic kidney disease stage 3, lung infection Mycobacterium [place], lung cancer History of Any Multi-Drug Resistant Organisms: None Reported Past Surgical History: No Surgical Hx Reported Additional Past Surgical History / Comment(s): Lt. THR 2022, bronchosopies, Lt. lung biopsy x 2 Past Anesthesia/Blood Transfusion Reactions: No Reported Reaction Past Psychological History: No Psychological Hx Reported Smoking Status: Current every day smoker <Kiley Givens - Last Filed: 06/12/24 15:48> General Exam Limitations: no limitations <Kiley Givens - Last Filed: 06/12/24 15:48> - General Exam Comments Initial Comments: Visual Physical Exam Vital signs reviewed General: Well-appearing, nontoxic, no acute distress. Head: Normocephalic, atraumatic Eyes: PERRLA, EOMI ENT: Airway patent Chest: Nonlabored breathing Skin: No visual rash, normal skin tone Neuro: Alert and oriented 3 Musculoskeletal: No gross abnormalities (Kiley Givens) Course <Modesta Zamarripa - Last Filed: 06/12/24 19:29> Vital Signs 04/12/2706/12/24 06/12/24 15:26 17:37 17:52 Temperature 97.4 F L Pulse Rate 104 H 105 H Respiratory 22 22 24 Rate Blood Pressure 184/115 193/125 O2 Sat by Pulse 95 98 Oximetry 06/12/24 06/12/24 06/12/24 18:13 18:18 18:34 Temperature Pulse Rate 100 99 100 Respiratory 24 Rate Blood Pressure 175/106 O2 Sat by Pulse 94 L Oximetry 06/12/24 06/12/24 19:01 19:24 Temperature Pulse Rate 105 H 105 H Respiratory 24 20 Rate Blood Pressure 170/108 174/110 O2 Sat by Pulse 95 97 Oximetry - Reevaluation(s) Reevaluation #1: Spoke with Dr. Fernando lockwood for admission and please consult oncology 06/12/24 19:27 (Modesta Zamarripa) Medical Decision Making <Kiley Givens - Last Filed: 06/12/24 15:48> - Lab Data Result diagrams: 06/12/24 17:50 06/12/24 17:50 <Modesta Zamarripa - Last Filed: 06/12/24 19:29> - Medical Decision Making I completed the quick note portion of this chart signed Kiley Givens PA-C (Kiley Givens) Was pt. sent in by a medical professional or institution ([facility], ASSURANCE SENIOR, urgent care, hospital, or fpc...) When possible be specific @ -[No] Did you speak to anyone other than the patient for history (EMS, parent, family, police, friend...)? What history was obtained from this source @ -[No] Did you review nursing and triage notes (agree or disagree)? Why? @ -[I reviewed and agree with nursing and triage notes] Were old charts reviewed (outside hosp., previous admission, EMS record, old EKG, old radiological studies, urgent care reports/EKG's, fpc records)? Report findings @ -[No old charts were reviewed] Differential Diagnosis (chest pain, altered mental status, abdominal pain women, abdominal pain men, vaginal bleeding, weakness, fever, dyspnea, syncope, headache, dizziness, GI bleed, back pain, seizure, CVA, palpatations, mental health, musculoskeletal)? @ -[not applicable] EKG interpreted by me (3pts min.). @ -Yes and demonstrates sinus tachycardia with a rate of 104. Parable 164. QRS 98. QTc of 337. No acute ST segment elevations or depressions X-rays interpreted by me (1pt min.). @ -[None done] CT interpreted by me (1pt min.). @ -[None done] U/S interpreted by me (1pt. min.). @ -[None done] What testing was considered but not performed or refused? (CT, X-rays, U/S, labs)? Why? @ -[None] What meds were considered but not given or refused? Why? @ -[None] Did you discuss the management of the patient with other professionals (professionals i.e. , PA, ASSURANCE SENIOR, lab, RT, psych nurse, clinical social work therapist, product handler, teacher, tactical intelligence officer, family independence case manager)? Give summary @ -[No] Was smoking cessation discussed for >3mins.? @ -[No] Was critical care preformed (if so, how long)? @ -[No] Were there social determinants of health that impacted care today? How? (Homelessness, low income, unemployed, alcoholism, drug addiction, transportation, low edu. Level, literacy, decrease access to med. care, correction, rehab)? @ -[No] Was there de-escalation of care discussed even if they declined (Discuss DNR or withdrawal of care, Hospice)? DNR status @ -[No] What co-morbidities impacted this encounter? (DM, HTN, Smoking, COPD, CAD, Cancer, CVA, ARF, Chemo, Hep., AIDS, mental health diagnosis, sleep apnea, morbid obesity)? @ -[None] Was patient admitted / discharged? Hospital course, mention meds given and route, prescriptions, significant lab abnormalities, going to OR and other pertinent info. @ -[hospital course] Undiagnosed new problem with uncertain prognosis? @ -[No] Drug Therapy requiring intensive monitoring for toxicity (Heparin, Nitro, Insulin, Cardizem)? @ -[No] Were any procedures done? @ -[No] Diagnosis/symptom? @ -[default] Acute, or Chronic, or Acute on Chronic? @ -[default] Uncomplicated (without systemic symptoms) or Complicated (systemic symptoms)? @ -[default] Side effects of treatment? @ -[No] Exacerbation, Progression, or Severe Exacerbation? @ -[No] Poses a threat to life or bodily function? How? (Chest pain, [place], [place], pneumonia, PE, COPD, DKA, ARF, appy, cholecystitis, CVA, Diverticulitis, Homicidal, Suicidal, threat to staff... and all critical care pts) @ -[No] (Modesta Zamarripa) - Lab Data Lab Results 06/12/24 06/12/24 06/12/24 Range/Units 17:50 17:50 17:50 WBC 13.40 H (4.50-10.00) 10*3/uL RBC 4.07 L (4.40-5.60) 10*6/uL Hgb 11.6 L (13.0-17.0) g/dL Hct 34.6 L (39.6-50.0) % MCV 85.0 (80.0-97.0) fL MCH 28.5 (27.0-32.0) pg MCHC 33.5 (32.0-37.0) g/dL Plt Count 290 (140-440) 10*3/uL MPV 7.5 L (9.5-12.2) fL Immature Gran % (Auto) 0.8 % Neutrophils % 91.5 % Lymphocytes % 1.9 % Monocytes % 5.7 % Eosinophils % 0.0 % Basophils % 0.1 % Immature Gran # 0.11 H (0.00-0.04) 10*3/uL Neutrophils # 12.26 H (1.80-7.70) 10*3/uL Lymphocytes # 0.25 L (0.90-5.00) 10*3/uL Monocytes # 0.77 (0.20-1.00) 10*3/uL Eosinophils # 0.00 L (0.04-0.35) 10*3/uL Basophils # 0.01 (0.00-0.10) 10*3/uL PT 10.5 (10.0-12.5) sec INR 0.9 (<1.2) APTT 20.0 L (22.0-30.0) sec Sodium 128 L (137-145) mmol/L Potassium 4.0 (3.5-5.1) mmol/L Chloride 90 L (98-107) mmol/L Carbon Dioxide 22 (22-30) mmol/L Anion Gap 16 mmol/L BUN 71 H (9-20) mg/dL Creatinine 2.32 H (0.66-1.25) mg/dL Est GFR (CKD-EPI)AfAm 34 (>60 ml/min/1.73 sqM) Est GFR (CKD-EPI)NonAf 30 (>60 ml/min/1.73 sqM) Glucose 131 H (74-99) mg/dL Calcium 10.0 (8.4-10.2) mg/dL Magnesium 2.4 H (1.6-2.3) mg/dL Total Bilirubin 0.5 (0.2-1.3) mg/dL AST 51 (17-59) U/L ALT 52 H (4-49) U/L Alkaline Phosphatase 99 (38-126) U/L Troponin I (0.000-0.034) ng/mL Total Protein 7.9 (6.3-8.2) g/dL Albumin 4.5 (3.5-5.0) g/dL Influenza Type A (PCR) (Not Detectd) Influenza Type B (PCR) (Not Detectd) RSV (PCR) (Not Detectd) SARS-CoV-2 (PCR) (Not Detectd) 06/12/24 06/12/24 Range/Units 17:50 17:50 WBC (4.50-10.00) 10*3/uL RBC (4.40-5.60) 10*6/uL Hgb (13.0-17.0) g/dL Hct (39.6-50.0) % MCV (80.0-97.0) fL MCH (27.0-32.0) pg MCHC (32.0-37.0) g/dL Plt Count (140-440) 10*3/uL MPV (9.5-12.2) fL Immature Gran % (Auto) % Neutrophils % % Lymphocytes % % Monocytes % % Eosinophils % % Basophils % % Immature Gran # (0.00-0.04) 10*3/uL Neutrophils # (1.80-7.70) 10*3/uL Lymphocytes # (0.90-5.00) 10*3/uL Monocytes # (0.20-1.00) 10*3/uL Eosinophils # (0.04-0.35) 10*3/uL Basophils # (0.00-0.10) 10*3/uL PT (10.0-12.5) sec INR (<1.2) APTT (22.0-30.0) sec Sodium (137-145) mmol/L Potassium (3.5-5.1) mmol/L Chloride (98-107) mmol/L Carbon Dioxide (22-30) mmol/L Anion Gap mmol/L BUN (9-20) mg/dL Creatinine (0.66-1.25) mg/dL Est GFR (CKD-EPI)AfAm (>60 ml/min/1.73 sqM) Est GFR (CKD-EPI)NonAf (>60 ml/min/1.73 sqM) Glucose (74-99) mg/dL Calcium (8.4-10.2) mg/dL Magnesium (1.6-2.3) mg/dL Total Bilirubin (0.2-1.3) mg/dL AST (17-59) U/L ALT (4-49) U/L Alkaline Phosphatase (38-126) U/L Troponin I 0.115 H* (0.000-0.034) ng/mL Total Protein (6.3-8.2) g/dL Albumin (3.5-5.0) g/dL Influenza Type A (PCR) Not Detected (Not Detectd) Influenza Type B (PCR) Not Detected (Not Detectd) RSV (PCR) Not Detected (Not Detectd) SARS-CoV-2 (PCR) Not Detected (Not Detectd) Disposition <Kiley Givens - Last Filed: 06/12/24 15:48> Is patient prescribed a controlled substance at d/c from ED?: No Time of Disposition: 19:14 Decision to Admit Reason: Admit from EC Decision Date: 06/12/24 Decision Time: 19:14 <Modesta Zamarripa - Last Filed: 06/12/24 19:29> Clinical Impression: Acute kidney injury, Dehydration, Lung cancer, NSTEMI (non-ST elevated myocardial infarction) Disposition: ADMITTED IP TO THIS HOSP Condition: Serious Referrals: Heena Nascimento MD [Primary Care Provider] - 1-2 days
--- NOTE | 2024-06-12 17:02 | XR ---
EXAMINATION TYPE: XR chest 2V DATE OF EXAM: 06/12/2024 4:34 PM COMPARISON: Chest radiographs from 12/22/2021e right perihilar fullness new from prior.Pet/CT. CLINICAL INDICATION: Male, 58 years old with history of difficulty breathing; [facility] TECHNIQUE: XR chest 2V Frontal and lateral views of the chest. FINDINGS: Lungs/Pleura: Decrease in size of left upper lung consolidation changes seen on prior measuring 31 mm on today's exam previously up to 40 mm. There is no evidence of pleural effusion, focal consolidatio n, or pneumothorax. Pulmonary vascularity: Unremarkable. Heart/mediastinum: Cardiomediastinal silhouette is unremarkable. Musculoskeletal: No acute osseous pathology. IMPRESSION: Right perihilar fullness as seen on 05/30/2024 [facility], , 06/12/2024 5:00 PM
[2024-06-12 18:05] LABS: Basophils # (A) 0.01 10*3/uL (0.00-0.10); Basophils % (A) 0.1 %; HCT 34.6 % (39.6-50.0); HGB 11.6 g/dL (13.0-17.0); Lymphocytes # (A) 0.25 10*3/uL (0.90-5.00); Lymphocytes % (A) 1.9 %; MCH 28.5 pg (27.0-32.0); MCHC 33.5 g/dL (32.0-37.0); Mean Platelet Volume 7.5 fL (9.5-12.2); Monocytes # (A) 0.77 10*3/uL (0.20-1.00); Monocytes % (A) 5.7 %; Neutrophils # (A) 12.26 10*3/uL (1.80-7.70); Neutrophils % (A) 91.5 %; Platelet Count 290 10*3/uL (140-440); RBC 4.07 10*6/uL (4.40-5.60)
[2024-06-12] MEDS: methylPREDNISolone SOD SUCCI 125 MG/2 ML VIAL IV STA (18:12)
[2024-06-12 18:16] LABS: ALT 52 U/L (4-49); AST 51 U/L (17-59); African American GFR (CKD) 34 (>60 ml/min/1.73 sqM); Albumin 4.5 g/dL (3.5-5.0); Alkaline Phosphatase 99 U/L (38-126); Anion Gap 16 mmol/L; Blood Urea Nitrogen 71 mg/dL (9-20); Carbon Dioxide 22 mmol/L (22-30); Chloride 90 mmol/L (98-107); Glucose 131 mg/dL (74-99); Magnesium 2.4 mg/dL (1.6-2.3); Non-African American GFR(CKD) 30 (>60 ml/min/1.73 sqM); Sodium 128 mmol/L (137-145); Total Bilirubin 0.5 mg/dL (0.2-1.3); Total Protein 7.9 g/dL (6.3-8.2)
[2024-06-12] MEDS: IPRATROPIUM-ALBUTEROL 3 ML NEB INHALATION STA (18:17)
[2024-06-12 18:21] LABS: INR 0.9 (<1.2); Prothrombin Time 10.5 sec (10.0-12.5)
[2024-06-12 18:41] LABS: Influenza A Not Detected (Not Detectd); Influenza B Not Detected (Not Detectd); RSV Not Detected (Not Detectd)
[2024-06-12] MEDS ORDERED: NALOXONE 0.4 MG/ML 1 ML VIAL IV PRN (19:14)
[2024-06-12] MEDS: MAGNESIUM SULFATE-D5W PMX 1 GM in DEXTROSE/WATER 1 100ML.BAG IVPB ONE (19:26)
[2024-06-12] MEDS: SODIUM CHLORIDE 0.9% 1,000 ML IV SCH (19:26)
[2024-06-12] MEDS ORDERED: LIDOCAINE VISCOUS 2% 15 ML CUP MUCOUS MEM SCH (19:30)
[2024-06-12] MEDS: IPRATROPIUM-ALBUTEROL 3 ML NEB INHALATION SCH (20:04)
[2024-06-12] MEDS: HYDROcodone/APAP 7.5-325MG 1 EACH TAB PO PRN (20:18)
--- NOTE | 2024-06-12 22:19 | P.HPIM ---
History of Present Illness H&P Date: 06/12/24 Chief Complaint: Short of breath Pleasant 58-year-old male, follows with Dr. Heena Nascimento as his PCP. 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 Patient back in 2021. Underwent biopsy of a lung lung mass. 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 Received treatment for a year. May 23, 2024: CT chest: Showed large mediastinal infiltrative mass. Encasement of the surrounding structures. Lymph nodes positive. May 28: Dr. Terrell did a bronchoscopy. Multiple biopsies were done and obstructing tumor was found. More details in his notes. 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 May 30 PET scan was done: That showed mass in the mediastinum. Lymph nodes also positive. No evidence of metastatic disease below the diaphragm. For 3 to 4 days patient been having increasing raspiness in the chest. Short of breath. Dry cough. No phlegm. Decreased appetite. In the last month patient lost about 15 pounds. Sitting up in the recliner audibly rattling in the chest. Patient was due to have a MRI. Review of systems: GEN.: Tired, decreased appetite EYES: None HEENT: None NECK: None RESPIRATORY: As above CARDIOVASCULAR: None GASTROINTESTINAL: None GENITOURINARY: None MUSCULOSKELETAL: None LYMPHATICS: None HEMATOLOGICAL: None PSYCHIATRY: None NEUROLOGICAL: None Social history: Alcohol occasionally. . Stopped smoking a year and a half ago. Used to work with a [employer]. On examination: VITAL SIGNS: 97.4, 104, 22, 184 x 105, 95% on 2 L GENERAL APPEARANCE: Up in a recliner. Coughing. Audible rattling in the chest HEENT: Normal external appearance of nose and ear. Oral cavity normal. EYES: Pupils equal. Conjunctiva normal. NECK: All neck veins are prominent in standing out RESPIRATORY: Respiratory effort increased, some wheezing. Audible rattling in the chest CARDIOVASCULAR: First and second sounds normal. No edema. ABDOMEN: Soft. Liver and spleen not palpable. No tenderness. No mass palpable. PSYCHIATRY: Alert and oriented x3. Mood and affect anxious Musculoskeletal: No obvious abnormality Neurological: Cranial nerves grossly intact. Rodriguez grossly intact.. INVESTIGATIONS, reviewed in the clinical context: Chest x-ray film personally reviewed by me-right hilar mass. Left upper lobe mass. EKG tracing personally reviewed by me-sinus tachycardia. Nonspecific ST-T wave changes. June 12: White count 13.4 hemoglobin 11.6 platelets 290 sodium 128 potassium 4 BUN 31 creatinine 2.32 Troponin I 0.115, 0.148 Influenza type B, type B, RSV, SARS-CoV-2: Not detected Recent testing May 23, 2024: CT chest: Showed large mediastinal infiltrative mass. Encasement of the surrounding structures. Lymph nodes positive. May 28: Dr. Terrell did a bronchoscopy. Multiple biopsies were done and obstructing tumor was found. More details in his notes. 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 May 30 PET scan was done: That showed mass in the mediastinum. Lymph nodes also positive. No evidence of metastatic disease below the diaphragm. 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 consult radiation oncology -Small cell lung cancer. No metastatic disease. Not beyond the diaphragm. Follows with Dr. COOPER pulmonary. Consult oncology -Acute COPD exacerbation in a previous smoker DuoNeb 4. Nebulized Pulmicort. IV Solu-Medrol -Kidney injury. Unknown acute versus chronic. UA. Renal ultrasound. IV fluids. Repeat lab - Positive troponin. Clinical picture not compatible with ACS. Especially in the setting of renal failure. 2D echo. Telemetry. -Essential hypertension, uncontrolled Hyzaar/HCTZ discontinued. Catapres 0.2 twice daily -Normocytic anemia likely from underlying malignancy -Hyponatremia, likely hypovolemic given decreased oral intake Repeat labs and serum osmolality -Full code Discussed with patient. Past Medical History Past Medical History: Hypertension, Osteoarthritis (OA), Renal Disease Additional Past Medical History / Comment(s): chronic kidney disease stage 3, lung infection Mycobacterium [place], lung cancer History of Any Multi-Drug Resistant Organisms: None Reported Past Surgical History: No Surgical Hx Reported Additional Past Surgical History / Comment(s): Lt. THR 2022, bronchosopies, Lt. lung biopsy x 2 Past Anesthesia/Blood Transfusion Reactions: No Reported Reaction Past Psychological History: No Psychological Hx Reported Smoking Status: Current every day smoker Medications and Allergies Home Medications Medication Instructions Recorded Confirmed Type Albuterol Inhaler [Ventolin Hfa 2 puff INHALATION RT-QID PRN 06/12/24 06/12/24 History Inhaler] HYDROcodone/APAP 7.5-325MG [[place] 1 tab PO Q6HR PRN 06/12/24 06/12/24 History 7.5-325] Ipratropium-Albuterol Nebulize 3 ml INHALATION RT-QID 06/12/24 06/12/24 History [Duoneb 0.5 mg-3 mg/3 ml Soln] Lidocaine Viscous 2% [Xylocaine 1 dose MUCOUS MEM DIRECTED 06/12/24 06/12/24 History Viscous] Losartan-Hctz 50-12.5 mg [Hyzaar 1 tab PO BID 06/12/24 06/12/24 History 50-12.5] Omeprazole 20 mg PO DAILY 06/12/24 06/12/24 History buPROPion XL [Wellbutrin XL] 150 mg PO DAILY 06/12/24 06/12/24 History dexAMETHasone [Decadron] 4 mg PO BID 06/12/24 06/12/24 History Allergies Allergy/AdvReac Type Severity Reaction Status Date / Time No Known Allergies Allergy Verified 06/12/24 19:13 Physical Exam Vitals: Vital Signs Temp Pulse Resp BP Pulse Ox 06/12/24 20:10 111 H 22 06/12/24 20:04 118 H 22 06/12/24 19:24 105 H 20 174/110 97 06/12/24 19:01 105 H 24 170/108 95 06/12/24 18:34 100 06/12/24 18:18 99 06/12/24 18:13 100 24 175/106 94 L 06/12/24 17:52 105 H 24 193/125 98 06/12/24 17:37 22 06/12/24 15:26 97.4 F L 104 H 22 184/115 95 Intake and Output 06/12/24 06/12/24 06/12/24 06:59 14:59 22:59 Other: Weight 75.75 kg Results CBC & Chem 7: 06/12/24 17:50 06/12/24 17:50 Labs: Abnormal Lab Results - Last 24 Hours (Table) 06/12/24 06/12/24 06/12/24 Range/Units 17:50 17:50 17:50 WBC 13.40 H (4.50-10.00) 10*3/uL RBC 4.07 L (4.40-5.60) 10*6/uL Hgb 11.6 L (13.0-17.0) g/dL Hct 34.6 L (39.6-50.0) % MPV 7.5 L (9.5-12.2) fL Immature Gran # 0.11 H (0.00-0.04) 10*3/uL Neutrophils # 12.26 H (1.80-7.70) 10*3/uL Lymphocytes # 0.25 L (0.90-5.00) 10*3/uL Eosinophils # 0.00 L (0.04-0.35) 10*3/uL APTT 20.0 L (22.0-30.0) sec Sodium 128 L (137-145) mmol/L Chloride 90 L (98-107) mmol/L BUN 71 H (9-20) mg/dL Creatinine 2.32 H (0.66-1.25) mg/dL Glucose 131 H (74-99) mg/dL Magnesium 2.4 H (1.6-2.3) mg/dL ALT 52 H (4-49) U/L Troponin I (0.000-0.034) ng/mL 06/12/24 06/12/24 Range/Units 17:50 20:56 WBC (4.50-10.00) 10*3/uL RBC (4.40-5.60) 10*6/uL Hgb (13.0-17.0) g/dL Hct (39.6-50.0) % MPV (9.5-12.2) fL Immature Gran # (0.00-0.04) 10*3/uL Neutrophils # (1.80-7.70) 10*3/uL Lymphocytes # (0.90-5.00) 10*3/uL Eosinophils # (0.04-0.35) 10*3/uL APTT (22.0-30.0) sec Sodium (137-145) mmol/L Chloride (98-107) mmol/L BUN (9-20) mg/dL Creatinine (0.66-1.25) mg/dL Glucose (74-99) mg/dL Magnesium (1.6-2.3) mg/dL ALT (4-49) U/L Troponin I 0.115 H* 0.148 H* (0.000-0.034) ng/mL
[2024-06-12] MEDS: cloNIDine HCL 0.2 MG TAB PO SCH (22:46)
[2024-06-12] MEDS: ENOXAPARIN 40 MG/0.4 ML SYRINGE SQ SCH (22:49)
[2024-06-12 23:52] LABS: Appearance,Urine Clear (Clear); Bilirubin,Urine Negative (Negative); Blood,Urine Trace (Negative); Color,Urine Colorless; Glucose,Urine (UA) Negative (Negative); Hyaline Casts,Urine 19 /lpf (0-2); Ketones,Urine Negative (Negative); Leukocyte Esterase,Urine Negative (Negative); Nitrite,Urine Negative (Negative); Protein,Urine Trace (Negative); RBC,Urine 2 /hpf (0-5); Specific Gravity,Urine 1.018 (1.001-1.035); Urobilinogen,Urine <2.0 mg/dL (<2.0); WBC,Urine <1 /hpf (0-5)
[2024-06-13] MEDS: BUDESONIDE 1 MG/2 ML NEBU INHALATION SCH (00:34)
--- NOTE | 2024-06-13 07:25 | US ---
EXAMINATION TYPE: US kidneys/renal and bladder DATE OF EXAM: 06/12/2024 COMPARISON: NONE CLINICAL INDICATION: Male, 58 years old with history of Evaluate for CKD; eval CKD. Pt has lung cance r TECHNIQUE: Grayscale imaging of the bilateral kidneys and urinary bladder: FINDINGS: EXAM MEASUREMENTS: Right Kidney: *unable to visualize kidney in entirety for measurement Left Kidney: 10.4 x 4.5 x 4.3 cm patient scanned sitting in reclining chair, patient unable to lay flat due to unable to breath. limited due to overlying bowel gas and patient position Right Kidney: superior pole appears wnl, inferior pole obscured by gas Left Kidney: wnl Bladder: wnl Bilateral Jets seen: attempted, not visualized at this time *prominent prostate seen measuring 4.4cm in width IMPRESSION: 1. Limited examination. 2. Prominent prostate. 3. Nonvisualization of the right kidney [facility], , 06/13/2024 7:23 AM
[2024-06-13 07:45] LABS: African American GFR (CKD) 42 (>60 ml/min/1.73 sqM); Anion Gap 16 mmol/L; Blood Urea Nitrogen 68 mg/dL (9-20); Calcium 9.5 mg/dL (8.4-10.2); Carbon Dioxide 21 mmol/L (22-30); Chloride 93 mmol/L (98-107); Glucose 134 mg/dL (74-99); Non-African American GFR(CKD) 36 (>60 ml/min/1.73 sqM); Potassium 3.4 mmol/L (3.5-5.1); Sodium 130 mmol/L (137-145)
[2024-06-13] MEDS: methylPREDNISolone SOD SUCCI 40 MG/ML 1 ML VIAL IV SCH (07:52)
[2024-06-13 07:54] LABS: Basophils # (A) 0.01 10*3/uL (0.00-0.10); Basophils % (A) 0.1 %; HCT 34.1 % (39.6-50.0); HGB 11.4 g/dL (13.0-17.0); Lymphocytes # (A) 0.37 10*3/uL (0.90-5.00); Lymphocytes % (A) 3.1 %; MCH 28.7 pg (27.0-32.0); MCHC 33.4 g/dL (32.0-37.0); MCV 85.9 fL (80.0-97.0); Mean Platelet Volume 7.8 fL (9.5-12.2); Monocytes # (A) 0.84 10*3/uL (0.20-1.00); Monocytes % (A) 7.1 %; Neutrophils # (A) 10.54 10*3/uL (1.80-7.70); Neutrophils % (A) 88.7 %; Platelet Count 285 10*3/uL (140-440); RBC 3.97 10*6/uL (4.40-5.60); WBC 11.88 10*3/uL (4.50-10.00)
[2024-06-13] MEDS: PANTOPRAZOLE 40 MG TABLET PO SCH (08:33)
[2024-06-13] MEDS: SODIUM CHLORIDE 0.9% 1,000 ML IV SCH (09:45)
[2024-06-13] MEDS: buPROPion XL 150 MG TAB.ER.24H PO SCH (09:46)
--- NOTE | 2024-06-13 10:14 | P.NPCON ---
History of Present Illness - Reason for Consult acute renal failure, chronic renal failure - History of Present Illness Reason for consultation: Acute kidney injury on chronic kidney disease History of present illness: Patient is a 58-year-old male seen in renal consultation for acute kidney injury on chronic kidney disease. Patient has chronic kidney disease stage IIIa with baseline creatinine 1.2-1.4. Creatinine was 2.3 on admission and is 1.97 today. Patient came to the hospital due to worsening shortness of breath. Patient states he does not wear oxygen at home. He is currently on 4 L nasal cannula. He denies fever. Admits to a nonproductive cough. He does admit to taking Motrin twice daily for chronic pain. Patient states he has lung cancer but has not done radiation or chemotherapy yet. He was taking losartan and hydrochlorothiazide outpatient which are currently held. He is receiving IV fluids. Admits to good urine output. No gross hematuria or dysuria. Denies chest pain. Vital signs are stable. General: No acute distress. HEENT: Head exam is unremarkable. On nasal cannula. LUNGS: Scattered rhonchi. HEART: Rate and Rhythm are regular. ABDOMEN: Nontender. EXTREMITITES: No edema. Past Medical History Past Medical History: Hypertension, Osteoarthritis (OA), Renal Disease Additional Past Medical History / Comment(s): chronic kidney disease stage 3, lung infection Mycobacterium [place], lung cancer History of Any Multi-Drug Resistant Organisms: None Reported Past Surgical History: No Surgical Hx Reported Additional Past Surgical History / Comment(s): Lt. THR 2022, bronchosopies, Lt. lung biopsy x 2 Past Anesthesia/Blood Transfusion Reactions: No Reported Reaction Past Psychological History: No Psychological Hx Reported Smoking Status: Current every day smoker Medications and Allergies Home Medications Medication Instructions Recorded Confirmed Type Albuterol Inhaler [Ventolin Hfa 2 puff INHALATION RT-QID PRN 06/12/24 06/12/24 History Inhaler] HYDROcodone/APAP 7.5-325MG [[place] 1 tab PO Q6HR PRN 06/12/24 06/12/24 History 7.5-325] Ipratropium-Albuterol Nebulize 3 ml INHALATION RT-QID 06/12/24 06/12/24 History [Duoneb 0.5 mg-3 mg/3 ml Soln] Lidocaine Viscous 2% [Xylocaine 1 dose MUCOUS MEM DIRECTED 06/12/24 06/12/24 History Viscous] Losartan-Hctz 50-12.5 mg [Hyzaar 1 tab PO BID 06/12/24 06/12/24 History 50-12.5] Omeprazole 20 mg PO DAILY 06/12/24 06/12/24 History buPROPion XL [Wellbutrin XL] 150 mg PO DAILY 06/12/24 06/12/24 History dexAMETHasone [Decadron] 4 mg PO BID 06/12/24 06/12/24 History Allergies Allergy/AdvReac Type Severity Reaction Status Date / Time No Known Allergies Allergy Verified 06/12/24 19:13 Physical Exam Vitals: Vital Signs Temp Pulse Resp BP Pulse Ox FiO2 06/13/24 09:00 97.7 F 105 H 38 H 159/96 96 06/13/24 08:32 35 06/13/24 08:30 107 H 38 H 122/66 97 06/13/24 07:54 101 H 38 H 149/98 97 06/13/24 07:52 108 H 22 06/13/24 07:41 97 06/13/24 07:37 102 H 28 H 06/13/24 07:00 97.8 F 102 H 38 H 175/100 97 06/13/24 06:34 87 16 96/60 97 06/13/24 04:25 114 H 24 06/13/24 04:17 101 H 26 H 06/13/24 04:14 101 H 22 155/87 97 06/13/24 02:09 93 16 120/73 96 06/13/24 00:44 99 18 06/13/24 00:43 105 H 18 125/79 98 06/13/24 00:35 93 20 06/12/24 23:10 105 H 18 172/99 97 06/12/24 21:00 102 H 20 166/96 95 06/12/24 20:10 111 H 22 06/12/24 20:04 118 H 22 06/12/24 19:24 105 H 20 174/110 97 06/12/24 19:01 105 H 24 170/108 95 06/12/24 18:34 100 06/12/24 18:18 99 06/12/24 18:13 100 24 175/106 94 L 06/12/24 17:52 105 H 24 193/125 98 06/12/24 17:37 22 06/12/24 15:26 97.4 F L 104 H 22 184/115 95 Intake and Output 06/12/24 06/13/24 06/13/24 22:59 06:59 14:59 Intake Total 1000 Balance 1000 Intake: Intake, IV Titration 1000 Amount Sodium Chloride 0.9% 1, 1000 000 ml @ 75 mls/hr IV . [id number] ROLLY Rx#:[id number] Other: Weight 75.75 kg Results - Lab Results Most recent lab results Calcium 9.5 mg/dL (8.4-10.2) 06/13/24 07:13 Magnesium 2.4 mg/dL (1.6-2.3) H 06/12/24 17:50 06/13/24 07:13 06/13/24 07:13 Assessment and Plan Plan: Assessment: 1. Acute kidney injury secondary to ATN secondary to NSAIDs and further worsen with the use of losartan and hydrochlorothiazide. Creatinine 2.32 on admission and is 1.97 today. No hydronephrosis noted on kidney ultrasound. Right kidney was not fully visualized. 2. Chronic kidney disease stage IIIa with baseline creatinine 1.2-1.4 secondary to nephrosclerosis. 3. Hypovolemic hyponatremia further worsened with the use of thiazide diuretic. Improved. 4. Hypokalemia from poor intake and diuretic use. 5. 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 Radiation oncology consulted. 6. Small cell lung cancer. Pulmonology following. 7. Hypertension with chronic kidney disease. Plan: Decrease rate of normal saline to 75 cc an hour. Hold losartan and hydrochlorothiazide. Avoid nephrotoxins. Replace potassium. Repeat labs in the morning. Add amlodipine. Hold clonidine for systolic blood pressure less than 120. Thank you for the consultation. I will continue to follow the patient with you during his hospital stay.
[2024-06-13] MEDS: DEXAMETHASONE SOD PHOSPHATE 10 MG/ML 1 ML VIAL IVP SCH (10:30)
[2024-06-13] MEDS: POTASSIUM CHLORIDE ER 20 MEQ TAB.ER PO STA (11:00)
[2024-06-13 11:41] LABS: Phosphorus 5.3 mg/dL (2.5-4.5); Uric Acid 8.8 mg/dL (3.5-8.5)
--- NOTE | 2024-06-13 12:19 | P.CRDCN ---
History of Present Illness Consult date: 06/13/24 Reason for Consult (text): NSTEMI History of present illness: This is 58-year-old male with past medical history of hypertension, small cell lung cancer recently diagnosed, SVC syndrome, hypertension, chronic kidney disease. We have been asked to evaluate the patient for NSTEMI. Patient states that he came into the hospital because he was having difficulty breathing which has been gradually worsening. Patient also complains of cough that is nonproductive and wheezing. He quit smoking 1 and half weeks ago. He states he was diagnosed with cancer 1-1/2 weeks ago. He has had 15 pound weight loss over the past month. He denies previous cardiac history and does not follow with a resident care director. He denies chest pain. He states his oncologist is Dr. Aryan Rodriguez. Blood pressure 151/90, heart rate 104, respiratory rate 38, pulse ox 96% on 4 L nasal cannula. PET scan performed on 05/30/2024 revealed conglomerate mass in the mediastinum with peripheral FDG activity compatible with malignancy. Multiple FDG avid lymph nodes in the mediastinum also present which closely approximate to the large mass. No evidence of metastatic disease below the diaphragm. Pulmonary medicine and oncology are on consult as well as radiology oncology addressing immediate need to treat SVC syndrome. -EKG: Sinus rhythm with nonspecific ST changes. -Chest x-ray: Right perihilar fullness. -Renal ultrasound Limited exam. Prominent prostate. Nonvisualization of the right kidney. -Laboratory studies: WBC 13.4 with repeat 11.8, hemoglobin 9.4, sodium 130, potassium 3.4, BUN 68 and creatinine 1.97. Patient presented with BUN of 71 and creatinine 2.32. Troponin 0.115, 0.148, 0.148. Cepheid viral panel not detected. -Home cardiac medications: Losartan hydrochlorothiazide 50-12.5 mg twice daily. - Review Of Systems: At the time of my exam: CONSTITUTIONAL: Denies fever or chills. HEENT: Denies blurred vision, vision changes, or eye pain. Denies hemoptysis CARDIOVASCULAR: Denies chest pain. Denies orthopnea. Denies PND. Denies palpitat ions RESPIRATORY: Reports nonproductive cough, reports shortness of breath. GASTROINTESTINAL: Denies abdominal pain. Denies nausea or vomiting. HEMATOLOGIC: Denies bleeding disorders. GENITOURINARY: Denies any blood in urine. SKIN: Denies puritis. Denies rash. Physical examination: Gen: This is a frail 66-year-old male in mild to moderate respiratory distress. VS: reviewed HEENT: Head is atraumatic, normocephalic. Pupils equal, round. Sclerae is anicteric. NECK: Supple. Significant JVP. LUNGS: Bilateral expiratory wheeze, bilateral rhonchi + intercostal retractions. HEART: Regular rate and rhythm. No murmur. ABDOMEN: Soft No tenderness. EXTREMITIES: No pedal edema. No calf tenderness. NEUROLOGICAL: Patient is awake, alert and oriented x3. 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 Nurse practitioner note has been reviewed, I agree with documented findings and plan of care. Patient was seen and examined. Past Medical History Past Medical History: Hypertension, Osteoarthritis (OA), Renal Disease Additional Past Medical History / Comment(s): chronic kidney disease stage 3, lung infection Mycobacterium [place], lung cancer History of Any Multi-Drug Resistant Organisms: None Reported Past Surgical History: No Surgical Hx Reported Additional Past Surgical History / Comment(s): Lt. THR 2022, bronchosopies, Lt. lung biopsy x 2 Past Anesthesia/Blood Transfusion Reactions: No Reported Reaction Past Psychological History: No Psychological Hx Reported Smoking Status: Current every day smoker Medications and Allergies Home Medications Medication Instructions Recorded Confirmed Type Albuterol Inhaler [Ventolin Hfa 2 puff INHALATION RT-QID PRN 06/12/24 06/12/24 History Inhaler] HYDROcodone/APAP 7.5-325MG [[place] 1 tab PO Q6HR PRN 06/12/24 06/12/24 History 7.5-325] Ipratropium-Albuterol Nebulize 3 ml INHALATION RT-QID 06/12/24 06/12/24 History [Duoneb 0.5 mg-3 mg/3 ml Soln] Lidocaine Viscous 2% [Xylocaine 1 dose MUCOUS MEM DIRECTED 06/12/24 06/12/24 History Viscous] Losartan-Hctz 50-12.5 mg [Hyzaar 1 tab PO BID 06/12/24 06/12/24 History 50-12.5] Omeprazole 20 mg PO DAILY 06/12/24 06/12/24 History buPROPion XL [Wellbutrin XL] 150 mg PO DAILY 06/12/24 06/12/24 History dexAMETHasone [Decadron] 4 mg PO BID 06/12/24 06/12/24 History Allergies Allergy/AdvReac Type Severity Reaction Status Date / Time No Known Allergies Allergy Verified 06/12/24 19:13 Physical Exam Vitals: Vital Signs Temp Pulse Resp BP Pulse Ox FiO2 06/13/24 08:32 35 06/13/24 08:30 107 H 38 H 122/66 97 06/13/24 07:54 101 H 38 H 149/98 97 06/13/24 07:41 97 06/13/24 07:37 102 H 28 H 06/13/24 07:00 97.8 F 102 H 38 H 175/100 97 06/13/24 06:34 87 16 96/60 97 06/13/24 04:25 114 H 24 06/13/24 04:17 101 H 26 H 06/13/24 04:14 101 H 22 155/87 97 06/13/24 02:09 93 16 120/73 96 06/13/24 00:44 99 18 06/13/24 00:43 105 H 18 125/79 98 06/13/24 00:35 93 20 06/12/24 23:10 105 H 18 172/99 97 06/12/24 21:00 102 H 20 166/96 95 06/12/24 20:10 111 H 22 06/12/24 20:04 118 H 22 06/12/24 19:24 105 H 20 174/110 97 06/12/24 19:01 105 H 24 170/108 95 06/12/24 18:34 100 06/12/24 18:18 99 06/12/24 18:13 100 24 175/106 94 L 06/12/24 17:52 105 H 24 193/125 98 06/12/24 17:37 22 06/12/24 15:26 97.4 F L 104 H 22 184/115 95 Intake and Output 06/12/24 06/13/24 06/13/24 22:59 06:59 14:59 Other: Weight 75.75 kg Results 06/13/24 07:13 06/13/24 07:13 Cardiac Enzymes 06/12/24 06/12/24 06/12/24 Range/Units 17:50 17:50 20:56 AST 51 (17-59) U/L Troponin I 0.115 H* 0.148 H* (0.000-0.034) ng/mL 06/13/24 Range/Units 00:22 AST (17-59) U/L Troponin I 0.148 H* (0.000-0.034) ng/mL Coagulation 06/12/24 Range/Units 17:50 PT 10.5 (10.0-12.5) sec APTT 20.0 L (22.0-30.0) sec CBC 06/12/24 06/13/24 Range/Units 17:50 07:13 WBC 13.40 H 11.88 H (4.50-10.00) 10*3/uL RBC 4.07 L 3.97 L (4.40-5.60) 10*6/uL Hgb 11.6 L 11.4 L (13.0-17.0) g/dL Hct 34.6 L 34.1 L (39.6-50.0) % Plt Count 290 285 (140-440) 10*3/uL Comprehensive Metabolic Panel 06/12/24 06/13/24 Range/Units 17:50 07:13 Sodium 128 L 130 L (137-145) mmol/L Potassium 4.0 3.4 L (3.5-5.1) mmol/L Chloride 90 L 93 L (98-107) mmol/L Carbon Dioxide 22 21 L (22-30) mmol/L BUN 71 H 68 H (9-20) mg/dL Creatinine 2.32 H 1.97 H (0.66-1.25) mg/dL Glucose 131 H 134 H (74-99) mg/dL Calcium 10.0 9.5 (8.4-10.2) mg/dL AST 51 (17-59) U/L ALT 52 H (4-49) U/L Alkaline Phosphatase 99 (38-126) U/L Total Protein 7.9 (6.3-8.2) g/dL Albumin 4.5 (3.5-5.0) g/dL Current Medications Generic Name Dose Route Start Last Admin Trade Name Jose Albertoq PRN Reason Stop Dose Admin Hydrocodone Bitart/Acetaminophen 1 each 06/12/24 19:28 06/13/24 08:39 Hydrocodone/Apap 7.5-325mg 1 Each Tab PO 1 each Q6HR PRN Administration Pain Albuterol/Ipratropium 3 ml 06/12/24 20:00 06/13/24 07:36 Ipratropium-Albuterol 3 Ml Neb INHALATION 3 ml RT-Q4H ROLLY Administration Budesonide 1 mg 06/12/24 22:10 06/13/24 07:36 Budesonide 1 Mg/2 Ml Nebu INHALATION 1 mg RT-BID ROLLY Administration Bupropion HCl 150 mg 06/13/24 09:00 Bupropion Xl 150 Mg Tab.Er.24h PO DAILY ROLLY Clonidine 0.2 mg 06/12/24 22:15 06/13/24 08:33 Clonidine Hcl 0.2 Mg Tab PO 0.2 mg BID ROLLY Administration Dexamethasone Sodium Phosphate 6 mg 06/13/24 10:00 Dexamethasone Sod Phosphate 10 Mg/Ml 1 Ml Vial IVP Q6H ROLLY Enoxaparin Sodium 40 mg 06/12/24 22:30 06/13/24 08:33 Enoxaparin 40 Mg/0.4 Ml Syringe SQ 40 mg DAILY ROLLY Administration Sodium Chloride 1,000 mls @ 130 mls/hr 06/12/24 19:15 06/13/24 04:16 Saline 0.9% IV Not Given .[id number] ROLLY Naloxone HCl 0.2 mg 06/12/24 19:14 Naloxone 0.4 Mg/Ml 1 Ml Vial IV Q2M PRN Opioid Reversal Pantoprazole Sodium 40 mg 06/13/24 09:00 06/13/24 08:33 Pantoprazole 40 Mg Tablet PO 40 mg DAILY ROLLY Administration Intake and Output 06/12/24 06/13/24 06/13/24 22:59 06:59 14:59 Other: Weight 75.75 kg 06/13/24 07:13 06/13/24 07:13
--- NOTE | 2024-06-13 12:50 | CA ---
Transthoracic Echo Report Name: Abdiel Gaona Age: 58 Gender: M : 1965 Exam Date: 06/13/2024 08:55 Exam Location: [place] [facility] Ht (in): 69 Wt (lb): 167 Ordering Physician: Nicolás Villa MD Attending/Referring Phys: Aryan Rodriguez MD Brake Holder Kaycee Ogden, [facility] Procedure CPT: Indications: Positive troponin Cardiac Hx: Technical Quality: Very technically difficult study Contrast 1: Total Dose (mL): Contrast 2: Total Dose (mL): MEASUREMENTS (Male / Female) Normal Values 2D ECHO LV Diastolic Diameter PLAX 3.9 cm 4.2 - 5.9 / 3.9 - 5.3 cm LV Systolic Diameter PLAX 2.4 cm IVS Diastolic Thickness 1.1 cm 0.6 - 1.0 / 0.6 - 0.9 cm LVPW Diastolic Thickness 1.3 cm 0.6 - 1.0 / 0.6 - 0.9 cm LV Relative Wall Thickness 0.6 RV Internal Dim ED PLAX 2.6 cm LA Systolic Diameter LX 3.5 cm 3.0 - 4.0 / 2.7 - 3.8 cm LV Diastolic Volume MOD 4C 39.3 cm??? LV Systolic Volume MOD 4C 8.3 cm??? LV Ejection Fraction MOD 4C 79.0 % LV Cardiac Index MOD 4C 691.4 cm???/min???m??? LV Diastolic Length 4C 6.6 cm LV Systolic Length 4C 6.2 cm M-MODE Aortic Root Diameter MM 3.4 cm LA Systolic Diameter MM 3.4 cm LA Ao Ratio MM 1.0 AV Cusp Separation MM 1.9 cm DOPPLER MV Area PHT 3.5 cm??? Mitral E Point Velocity 41.1 cm/s Mitral A Point Velocity 93.3 cm/s Mitral E to A Ratio 0.4 MV Deceleration Time 217.9 ms TR Peak Velocity 325.5 cm/s TR Peak Gradient 42.4 mmHg Right Atrial Pressure 20.0 mmHg Pulmonary Artery Systolic Pressu 62.4 mmHg Right Ventricular Systolic Press 62.4 mmHg FINDINGS Left Ventricle Left ventricular ejection fraction is estimated at 65-70%. Mildly increased septal wall thickness. No obvious regional wall motion abnormalities. Left ventricular cavity size normal. Hyperdynamic left ventricular systolic function. Right Ventricle Mild right ventricular dilatation. Severe pulmonary hypertension. Right Atrium Normal right atrial size. Left Atrium Normal left atrial size. Mitral Valve Mitral valve not well visualized. Mild mitral regurgitation. No mitral stenosis. Aortic Valve Aortic valve not well visualized. Tricuspid Valve Tricuspid valve not well visualized. Mild tricuspid regurgitation. No tricuspid stenosis. Pulmonic Valve Pulmonic valve not well visualized. Pericardium No pericardial or pleural effusion. Echo free space anterior to the right ventricle likely represents a fat pad. Aorta Normal size aortic root and proximal ascending aorta. CONCLUSIONS Technically difficult study for interpretation Normal LV systolic function Small pericardial effusion Severe pulmonary hypertension Previewed by: Dr. Esau Mendoza MD (Electronically Signed) Final Date: 13 June 2024 12:49
[2024-06-13] MEDS ORDERED: methylPREDNISolone SOD SUCCI 125 MG/2 ML VIAL IV SCH (14:00)
--- NOTE | 2024-06-13 14:46 | P.CNPUL ---
History of Present Illness Consult date: 06/13/24 Requesting physician: Nicolás Villa Reason for consult: dyspnea, hypoxemia, abnormal CXR/CT Chief complaint: Shortness of breath History of present illness: This is a pleasant 58-year-old male patient with a history of chronic kidney disease, hypertension, chronic tobacco dependence however quit 1-1/2 years ago, chronic obstructive pulmonary disease, Mycobacterium kansasii infection diagnosed back in 2021 and treated with INH, rifampin and ethambutol. He was last seen by Dr. Kaplan in February 2023. More recently in May 2024 the patient had been diagnosed with pneumonia and treated by his PCP without much improvement. He had seen Dr. Daly again in follow-up. CT scan of the chest was performed and a right perihilar mass and a left upper lobe lesion. Bronchoscopy and biopsies were performed on May 28, 2024 that were positive for small cell carcinoma. There was tumor at the main caro and tumor obstructing the right upper lobe. He was recently seen by Dr. Aryan Rodriguez and Dr. Greene for chemotherapy and radiation plans however the patient has been unable to lay flat for radiation. He has been unable to lay flat for an MRI of the brain. He presented here to the emergency room yesterday with worsening shortness of breath, cough and congestion. Chest x-ray continues to show right perihilar fullness and a left upper lung consolidation. White count 11.8. Hemoglobin 11.4. Platelets 285. Sodium 130. Potassium 3.4. Bicarb 21. BUN 68. Creatinine 1.97. Troponin 0.115, 0.148, 0.148. Urinalysis clean. Viral screen negative. He is seen today in consultation in the emergency department. He is currently sitting up in a chair. He is in mild respiratory distress. He has a loose congested cough. He has distended neck veins. slight increase edema of the right arm and concerns regarding superior vena cava syndrome. Review of Systems REVIEW OF SYSTEMS: CONSTITUTIONAL: Denies any recent significant weight loss or weight gain. EYES: Denies change in vision. EARS, NOSE, MOUTH, THROAT: Denies headaches, denies sore throat. CARDIOVASCULAR: Denies chest pain, palpitations or syncopal episodes. RESPIRATORY: Positive for shortness of breath, cough, congestion no hemoptysis. GASTROINTESTINAL: Denies change in appetite, denies abdominal pain GENITOURINARY: Denies hematuria, denies infections. MUSKULOSKELETAL: Positive for right upper extremity swelling. INTEGUMENTARY: Denies rash, denies eczema. NEUROLOGICAL: Denies recent memory loss, no recent seizure activity. PSYCHIATRIC: Denies anxiety, denies depression. HEMATOLOGIC/LYMPHATIC: Denies anemia, denies enlarged lymph nodes. Past Medical History Past Medical History: Hypertension, Osteoarthritis (OA), Renal Disease Additional Past Medical History / Comment(s): chronic kidney disease stage 3, lung infection Mycobacterium [place], lung cancer History of Any Multi-Drug Resistant Organisms: None Reported Past Surgical History: No Surgical Hx Reported Additional Past Surgical History / Comment(s): Lt. THR 2022, bronchosopies, Lt. lung biopsy x 2 Past Anesthesia/Blood Transfusion Reactions: No Reported Reaction Past Psychological History: No Psychological Hx Reported Smoking Status: Current every day smoker Medications and Allergies Home Medications Medication Instructions Recorded Confirmed Type Albuterol Inhaler [Ventolin Hfa 2 puff INHALATION RT-QID PRN 06/12/24 06/12/24 History Inhaler] HYDROcodone/APAP 7.5-325MG [[place] 1 tab PO Q6HR PRN 06/12/24 06/12/24 History 7.5-325] Ipratropium-Albuterol Nebulize 3 ml INHALATION RT-QID 06/12/24 06/12/24 History [Duoneb 0.5 mg-3 mg/3 ml Soln] Lidocaine Viscous 2% [Xylocaine 1 dose MUCOUS MEM DIRECTED 06/12/24 06/12/24 History Viscous] Losartan-Hctz 50-12.5 mg [Hyzaar 1 tab PO BID 06/12/24 06/12/24 History 50-12.5] Omeprazole 20 mg PO DAILY 06/12/24 06/12/24 History buPROPion XL [Wellbutrin XL] 150 mg PO DAILY 06/12/24 06/12/24 History dexAMETHasone [Decadron] 4 mg PO BID 06/12/24 06/12/24 History Allergies Allergy/AdvReac Type Severity Reaction Status Date / Time No Known Allergies Allergy Verified 06/12/24 19:13 Physical Exam Vitals: Vital Signs Temp Pulse Resp BP Pulse Ox FiO2 06/13/24 12:00 104 H 38 H 148/97 96 06/13/24 11:00 104 H 38 H 151/90 96 06/13/24 10:58 103 H 22 06/13/24 10:50 104 H 19 06/13/24 09:00 97.7 F 105 H 38 H 159/96 96 06/13/24 08:32 35 06/13/24 08:30 107 H 38 H 122/66 97 06/13/24 07:54 101 H 38 H 149/98 97 06/13/24 07:52 108 H 22 06/13/24 07:41 97 06/13/24 07:37 102 H 28 H 06/13/24 07:00 97.8 F 102 H 38 H 175/100 97 06/13/24 06:34 87 16 96/60 97 06/13/24 04:25 114 H 24 06/13/24 04:17 101 H 26 H 06/13/24 04:14 101 H 22 155/87 97 06/13/24 02:09 93 16 120/73 96 06/13/24 00:44 99 18 06/13/24 00:43 105 H 18 125/79 98 06/13/24 00:35 93 20 06/12/24 23:10 105 H 18 172/99 97 06/12/24 21:00 102 H 20 166/96 95 06/12/24 20:10 111 H 22 06/12/24 20:04 118 H 22 06/12/24 19:24 105 H 20 174/110 97 06/12/24 19:01 105 H 24 170/108 95 06/12/24 18:34 100 06/12/24 18:18 99 06/12/24 18:13 100 24 175/106 94 L 06/12/24 17:52 105 H 24 193/125 98 06/12/24 17:37 22 06/12/24 15:26 97.4 F L 104 H 22 184/115 95 Intake and Output 06/12/24 06/13/24 06/13/24 22:59 06:59 14:59 Intake Total 1000 Balance 1000 Intake: Intake, IV Titration 1000 Amount Sodium Chloride 0.9% 1, 1000 000 ml @ 75 mls/hr IV . [id number] [facility] Rx#:[id number] Other: Weight 75.75 kg GENERAL EXAM: Alert, pleasant 58-year-old male patient, on 4 L nasal cannula, in mild respiratory distress, unable to lay flat. HEAD: Normocephalic. EYES: Normal reaction of pupils, equal size. NOSE: Clear with pink turbinates. THROAT: No erythema or exudates. NECK: Noted distended neck veins no masses, no JVD. CHEST: No chest wall deformity. Noted distended veins LUNGS: Equal air entry with bilateral scattered rhonchi, more so in the right lung. CVS: S1 and S2 normal with no audible murmur, regular rhythm. ABDOMEN: No hepatosplenomegaly, normal bowel sounds, no guarding or rigidity. SPINE: No scoliosis or deformity SKIN: No rashes CENTRAL NERVOUS SYSTEM: No focal deficits, tone is normal in all 4 extremities. EXTREMITIES: There is 1+ edema of the right upper extremity. No clubbing, no cyanosis. Peripheral pulses are intact. Results - Laboratory Findings CBC and BMP: 06/13/24 07:13 06/13/24 07:13 PT/INR, D-dimer PT 10.5 sec (10.0-12.5) 06/12/24 17:50 INR 0.9 (<1.2) 06/12/24 17:50 Abnormal lab findings: Abnormal Labs 06/12/24 06/12/24 06/12/24 17:50 17:50 17:50 WBC 13.40 H RBC 4.07 L Hgb 11.6 L Hct 34.6 L MPV 7.5 L Immature Gran # 0.11 H Neutrophils # 12.26 H Lymphocytes # 0.25 L Eosinophils # 0.00 L APTT 20.0 L Sodium 128 L Potassium Chloride 90 L Carbon Dioxide BUN 71 H Creatinine 2.32 H Glucose 131 H Uric Acid Phosphorus Magnesium 2.4 H ALT 52 H Troponin I Urine Protein Urine Blood Hyaline Casts 06/12/24 06/12/24 06/12/24 17:50 20:56 22:50 WBC RBC Hgb Hct MPV Immature Gran # Neutrophils # Lymphocytes # Eosinophils # APTT Sodium Potassium Chloride Carbon Dioxide BUN Creatinine Glucose Uric Acid Phosphorus Magnesium ALT Troponin I 0.115 H* 0.148 H* Urine Protein Trace H Urine Blood Trace H Hyaline Casts 19 H 06/13/24 06/13/24 06/13/24 00:22 07:13 07:13 WBC 11.88 H RBC 3.97 L Hgb 11.4 L Hct 34.1 L MPV 7.8 L Immature Gran # 0.12 H Neutrophils # 10.54 H Lymphocytes # 0.37 L Eosinophils # 0.00 L APTT Sodium 130 L Potassium 3.4 L Chloride 93 L Carbon Dioxide 21 L BUN 68 H Creatinine 1.97 H Glucose 134 H Uric Acid Phosphorus Magnesium ALT Troponin I 0.148 H* Urine Protein Urine Blood Hyaline Casts 06/13/24 07:13 WBC RBC Hgb Hct MPV Immature Gran # Neutrophils # Lymphocytes # Eosinophils # APTT Sodium Potassium Chloride Carbon Dioxide BUN Creatinine Glucose Uric Acid 8.8 H Phosphorus 5.3 H Magnesium ALT Troponin I Urine Protein Urine Blood Hyaline Casts - Diagnostic Findings Chest x-ray: image reviewed Assessment and Plan Assessment: Acute hypoxemic respiratory failure secondary to small cell lung cancer, super ior vena cava syndrome and COPD exacerbation Recent diagnosis of small cell lung cancer in May 2024, unable to lay flat for radiation treatment, plan is for induction chemotherapy inpatient today or tomorrow 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 Chronic obstructive pulmonary disease Former heavy smoker however quit 1-1/2 years ago History of mycoplasma kansasii lung infection, treated with INH, rifampin and ethambutol in Acute on chronic kidney disease Hypertension Gastroesophageal reflux disease Plan: The patient was seen and evaluated Chest x-ray, labs and medications reviewed Currently requiring oxygen at 4 L/min per nasal cannula Titrate the FiO2 as tolerated Initiate Decadron 6 mg IV push every 6 hours Initiate DuoNeb inhalations Initiate Pulmicort and Perforomist inhalations Lovenox for DVT prophylaxis Spoke with medical and radiation oncology Plan is for induction chemotherapy today or tomorrow Plan of care was discussed with the patient who verbalizes understanding and is in agreement We will continue to follow and make further recommendations based on this clinical status I have personally seen and examined the patient, performed the documentation and the assessment and plan as written. Number of minutes spent on the visit: 20 Dictation was produced using Early[employer] dictation software. Please excuse any grammatical, word or spelling errors. Time with Patient: Greater than 30
[2024-06-13] MEDS ORDERED: LOPERAMIDE 2 MG CAP PO PRN (17:38)
[2024-06-13] MEDS ORDERED: ONDANSETRON 4 MG/2 ML VIAL IVP PRN (17:38)
--- NOTE | 2024-06-13 18:19 | P.PN ---
Progress Note - Text Progress Note Date: 06/13/24 Chief Complaint: Short of breath Pleasant 58-year-old male, follows with Dr. Heena Nascimento as his PCP. 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 Patient back in 2021. Underwent biopsy of a lung lung mass. 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 Received treatment for a year. May 23, 2024: CT chest: Showed large mediastinal infiltrative mass. Encasement of the surrounding structures. Lymph nodes positive. May 28: Dr. Terrell did a bronchoscopy. Multiple biopsies were done and obstructing tumor was found. More details in his notes. 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 May 30 PET scan was done: That showed mass in the mediastinum. Lymph nodes also positive. No evidence of metastatic disease below the diaphragm. For 3 to 4 days patient been having increasing raspiness in the chest. Short of breath. Dry cough. No phlegm. Decreased appetite. In the last month patient lost about 15 pounds. Sitting up in the recliner audibly rattling in the chest. Patient was due to have a MRI. June 13: This morning Dr. King called me that patient should be transferred to outside facility as our radiation team will not be able to do radiation because of patient's pulmonary status. Patient may need a BiPAP. [facility]. Case management was involved. Later got a call from Dr. Mitchell oncology that patient will benefit from chemotherapy as opposed to radiation at this point. Hence chemotherapy is being arranged here. Transfer is being canceled. Earlier today I spoke at length with the patient and his . Patient also having some trouble swallowing. Ensure ordered. Total time spent today about 1 hour 15 minutes with over 40 minutes of discussion. Active Medications Hydrocodone Bitart/Acetaminophen (Hydrocodone/Apap 7.5-325mg 1 Each Tab) 1 each PO Q6HR PRN PRN Reason: Pain Last Admin: 06/13/24 15:04 Dose: 1 each Albuterol/Ipratropium (Ipratropium-Albuterol 3 Ml Neb) 3 ml INHALATION RT-Q4H [facility] Last Admin: 06/13/24 15:25 Dose: 3 ml Allopurinol (Allopurinol 300 Mg Tab) 300 mg PO DAILY [facility] Amlodipine Besylate (Amlodipine 5 Mg Tab) 5 mg PO DAILY [facility] Budesonide (Budesonide 1 Mg/2 Ml Nebu) 1 mg INHALATION RT-BID [facility] Last Admin: 06/13/24 07:36 Dose: 1 mg Bupropion HCl (Bupropion Xl 150 Mg Tab.Er.24h) 150 mg PO DAILY [facility] Last Admin: 06/13/24 09:46 Dose: 150 mg Clonidine (Clonidine Hcl 0.2 Mg Tab) 0.2 mg PO BID [facility] Last Admin: 06/13/24 08:33 Dose: 0.2 mg Dexamethasone Sodium Phosphate (Dexamethasone Sod Phosphate 10 Mg/Ml 1 Ml Vial) 6 mg IVP Q6H [facility] Last Admin: 06/13/24 16:11 Dose: 6 mg Dexamethasone Sodium Phosphate (Dexamethasone Sod Phosphate 10 Mg/Ml 1 Ml Vial) 10 mg IVP Q24H [facility] Stop: 06/16/24 14:01 Docusate Sodium (Docusate 100 Mg Cap) 100 mg PO BID PRN PRN Reason: Constipation Enoxaparin Sodium (Enoxaparin 40 Mg/0.4 Ml Syringe) 40 mg SQ DAILY [facility] Last Admin: 06/13/24 08:33 Dose: 40 mg Famotidine (Famotidine 20 Mg/2 Ml Vial) 20 mg IVP Q24H [facility] Stop: 06/16/24 14:01 Sodium Chloride (Saline 0.9%) 1,000 mls @ 75 mls/hr IV .[id number] [facility] Last Admin: 06/13/24 09:45 Dose: 75 mls/hr Ondansetron HCl 16 mg/ Sodium (Chloride) 58 mls @ 232 mls/hr IVPB Q24H [facility] Stop: 06/16/24 14:14 Carboplatin 260 mg/ Sodium (Chloride) 276 mls @ 276 mls/hr IV ONCE ONE Stop: 06/14/24 15:59 Etoposide 190 mg/ Sodium (Chloride) 509.5 mls @ 509.5 mls/hr IV Q24H [facility] Stop: 06/16/24 16:59 Loperamide HCl (Loperamide 2 Mg Cap) 2 mg PO QID PRN PRN Reason: Diarrhea Naloxone HCl (Naloxone 0.4 Mg/Ml 1 Ml Vial) 0.2 mg IV Q2M PRN PRN Reason: Opioid Reversal Ondansetron HCl (Ondansetron 4 Mg/2 Ml Vial) 4 mg IVP Q6HR PRN PRN Reason: Nausea And Vomiting Pantoprazole Sodium (Pantoprazole 40 Mg Tablet) 40 mg PO DAILY [facility] Last Admin: 06/13/24 08:33 Dose: 40 mg Sodium Bicarbonate (Salt And Soda Mouthwash 1,000 Ml) 5 ml PO 5XD [facility] Social history: Alcohol occasionally. . Stopped smoking a year and a half ago. Used to work with a [employer] company. On examination: VITAL SIGNS: 97.5, 101, 38, 162/94, 96% on 4 L GENERAL APPEARANCE: Up in a recliner. Coughing. Audible rattling in the chest HEENT: Normal external appearance of nose and ear. Oral cavity normal. EYES: Pupils equal. Conjunctiva normal. NECK: All neck veins are prominent in standing out RESPIRATORY: Respiratory effort increased, some wheezing. Audible rattling in the chest CARDIOVASCULAR: First and second sounds normal. No edema. ABDOMEN: Soft. Liver and spleen not palpable. No tenderness. No mass palpable. PSYCHIATRY: Alert and oriented x3. Mood and affect anxious Musculoskeletal: No obvious abnormality Neurological: Cranial nerves grossly intact. Power and sensation grossly intact. INVESTIGATIONS, reviewed in the clinical context: 2D echo: EF 65 to 70%. Hyperdynamic left ventricular systolic function. Severe pulmonary hypertension. Renal ultrasound: Nonspecific June 13: White count 11.8 hemoglobin 11.4 platelets 285 sodium 130 potassium 3.4 BUN 68 creatinine 1.97 procalcitonin 0.33 Chest x-ray film personally reviewed by me-right hilar mass. Left upper lobe mass. EKG tracing personally reviewed by me-sinus tachycardia. Nonspecific ST-T wave changes. June 12: White count 13.4 hemoglobin 11.6 platelets 290 sodium 128 potassium 4 BUN 31 creatinine 2.32 Troponin I 0.115, 0.148 Influenza type B, type B, RSV, SARS-CoV-2: Not detected Recent testing May 23, 2024: CT chest: Showed large mediastinal infiltrative mass. Encasement of the surrounding structures. Lymph nodes positive. May 28: Dr. Terrell did a bronchoscopy. Multiple biopsies were done and obstructing tumor was found. More details in his notes. 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 May 30 PET scan was done: That showed mass in the mediastinum. Lymph nodes also positive. No evidence of metastatic disease below the diaphragm. 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 Patient seen by Dr. Mitchell from oncology. Chemotherapy will be started today. Carboplatin, etoposide. Because of patient's pulmonary status he cannot get any radiation currently. -Small cell lung cancer. No metastatic disease. Not beyond the diaphragm. Follows with Dr. ALLISON armstrong. Chemotherapy will be started today. Carboplatin, etoposide. -Acute COPD exacerbation in a previous smoker: Slow to respond DuoNeb 4. Nebulized Pulmicort. IV Decadron l -Kidney injury. Unknown acute versus chronic. UA: Trace protein. Renal ultrasound: Unremarkable. IV fluids. Repeat lab - Positive troponin. Clinical picture not compatible with ACS. Especially in the setting of renal failure. 2D echo no wall motion abnormality. Telemetry. -Essential hypertension, uncontrolled Hyzaar/HCTZ discontinued. Catapres 0.2 twice daily -Normocytic anemia likely from underlying malignancy -Hyponatremia, likely hypovolemic given decreased oral intake: Some improvement Repeat labs and serum osmolality -Full code For chemotherapy. Transfer canceled. Past Medical History Past Medical History: Hypertension, Osteoarthritis (OA), Renal Disease Additional Past Medical History / Comment(s): chronic kidney disease stage 3, lung infection Mycobacterium [place], lung cancer History of Any Multi-Drug Resistant Organisms: None Reported Past Surgical History: No Surgical Hx Reported Additional Past Surgical History / Comment(s): Lt. THR 2022, bronchosopies, Lt. lung biopsy x 2 Past Anesthesia/Blood Transfusion Reactions: No Reported Reaction Past Psychological History: No Psychological Hx Reported Smoking Status: Current every day smoker
[2024-06-13] MEDS: allopurinoL 300 MG TAB PO SCH ×2 (18:54→20:08)
[2024-06-13] MEDS: SALT AND SODA MOUTHWASH 1,000 ML PO SCH (20:57)
--- NOTE | 2024-06-14 02:42 | CONS ---
CONSULTATION REASON FOR CONSULTATION: Cancer of the right hilum and mediastinum. HISTORY OF PRESENT ILLNESS: Abdiel Gaona is a 58-year-old male, who was recently diagnosed with mediastinal lymphadenopathy. He was noted to have a right hilar mass. The patient was seen in the office on 06/10/2024 regarding his recent diagnosis. He was felt to have limited stage small cell carcinoma. The patient has been having increasing shortness of breath. He was seen by Medical Oncology. He did have a PET scan, which confirmed mediastinal lymphadenopathy. The patient recently was taken to the hospital due to the increasing shortness of breath. He has been undergoing workup here in the emergency room. PAST MEDICAL HISTORY: 1. Depression. 2. Anxiety disorder. 3. Hypertension. 4. Cancer of the lung as per HPI. 5. Arthritis. PAST SURGICAL HISTORY: 1. Bronchoscopy. 2. Hip replacement. OUTPATIENT MEDICATIONS: 1. Tylenol Arthritis. 2. Breanna. 3. Bupropion. 4. Dexamethasone. 5. [place] 7.5/325. 6. Losartan. 7. Multivitamins and omeprazole. ALLERGIES: NKDA. SOCIAL HISTORY: The patient has a history of smoking 1 pack of cigarettes per day for approximately 30 years, but he quit 3 years ago. He was a heavy drinker in the past, but he also discontinued alcohol several years ago. The patient lives in his own home. FAMILY HISTORY: Noncontributory. REVIEW OF SYSTEMS: Contributory for intermittent cough, dyspnea on exertion, reduced appetite, reduced energy level. PHYSICAL EXAMINATION: GENERAL: Mr. Gaona is resting in a hospital bed. VITAL SIGNS: He has O2 by nasal cannula. He has a BP 138/80, pulse 78, respirations 18, temperature is 36.4. HEAD: Atraumatic, normocephalic. EYES: PERRLA. EOMI. NECK: No palpable cervical or supra lymphadenopathy. LUNGS: Clear to auscultation and percussion. HEART: Normal heart sounds. ABDOMEN: Benign. No palpable masses or organomegaly. EXTREMITIES: Full range of motion. No cyanosis, clubbing, or edema is detected. NEUROLOGIC: Reveals cranial nerves II through XII intact. Strength and sensation intact. Deep tendon reflexes intact. Plantar reflexes are downgoing. SKIN/INTEGUMENT: Reveals no lesions. PSYCHIATRIC: Reveals no mood disorders. 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 The patient is presenting with worsening shortness of breath. He does appear to have a limited staged disease. The patient, otherwise, has additional ongoing medical problems including, 1. Arthritis. 2. Hypertension. 3. Seasonal allergies. PAIN SCALE EVALUATION: Zero. PAIN MEDICATION: None. DURATION OF THE INPATIENT EVALUATION: Today was approximately 25 minutes. SMOKING CESSATION/SMOKING HISTORY: The patient is a nonsmoker and does not use tobacco products any longer after discontinuing tobacco use 3 years ago. PERFORMANCE STATUS: 1. PLAN: Mr. Gaona is presenting with progression of disease regarding the mediastinal adenopathy from small cell lung cancer. He will be evaluated by Medical Oncology. We are planning for the patient to undergo initiation of radiation therapy. He is tentatively scheduled to undergo treatment planning on 06/16/2024. We will await for the patient to undergo hospitalization and stabilization. At that point of time, we will plan to bring the patient back to Radiation Oncology for planning. Thank you, again, for allowing me to participate in the care of Abdiel Gaona. MMCHEYENNEL / PAUL: [id number] /
[2024-06-14] MEDS ORDERED: IPRATROPIUM-ALBUTEROL 3 ML NEB INHALATION PRN (03:13)
[2024-06-14 06:44] LABS: Basophils # (A) 0.01 10*3/uL (0.00-0.10); Basophils % (A) 0.1 %; HCT 32.4 % (39.6-50.0); HGB 10.7 g/dL (13.0-17.0); Lymphocytes # (A) 0.36 10*3/uL (0.90-5.00); Lymphocytes % (A) 3.5 %; MCH 28.6 pg (27.0-32.0); MCV 86.6 fL (80.0-97.0); Mean Platelet Volume 7.7 fL (9.5-12.2); Monocytes # (A) 0.58 10*3/uL (0.20-1.00); Monocytes % (A) 5.6 %; Neutrophils # (A) 9.31 10*3/uL (1.80-7.70); Neutrophils % (A) 89.4 %; Platelet Count 265 10*3/uL (140-440); RBC 3.74 10*6/uL (4.40-5.60); RDW 14.2 % (11.5-14.5); WBC 10.41 10*3/uL (4.50-10.00)
[2024-06-14 07:11] LABS: ALT 69 U/L (4-49); AST 54 U/L (17-59); African American GFR (CKD) 47 (>60 ml/min/1.73 sqM); Albumin 4.3 g/dL (3.5-5.0); Alkaline Phosphatase 87 U/L (38-126); Anion Gap 15 mmol/L; Blood Urea Nitrogen 70 mg/dL (9-20); Carbon Dioxide 21 mmol/L (22-30); Chloride 95 mmol/L (98-107); Glucose 116 mg/dL (74-99); Non-African American GFR(CKD) 41 (>60 ml/min/1.73 sqM); Potassium 3.9 mmol/L (3.5-5.1); Sodium 131 mmol/L (137-145); Total Bilirubin 0.4 mg/dL (0.2-1.3); Total Protein 7.4 g/dL (6.3-8.2); Uric Acid 9.8 mg/dL (3.5-8.5)
[2024-06-14] MEDS: amLODIPine 5 MG TAB PO SCH (09:23)
--- NOTE | 2024-06-14 09:40 | P.CONS ---
History of Present Illness - Reason for Consult Consult date: 06/13/24 lung cancer Requesting physician: Modesta Zamarripa - Chief Complaint MICHELET - History of Present Illness Mr. Gaona is a 58-year-old gentleman with a past medical history significant for hypertension and and small cell carcinoma who follows with Dr. Joe Rodriguez. In April 2024, he developed progressive dyspnea on exertion and eventually at rest that did not resolve with antibiotics. Chest x-ray ordered on 05/19/2024 by his manager it training noted 2.2 cm nodule in the left upper lobe that was noted to be suspicious in nature in addition to right hilar prominence. CT of the chest on 05/23/2024 noted large mediastinal infiltrative mass measuring 9.4 x 9.6 cm with encasement of the distal trachea and its branches. There was noted to be occlusion of the right upper lobe bronchus. There was narrowing with possible invasion of the SVC along with encasement of the esophagus. There was stable indeterminate thickening of the left adrenal gland measuring up to 1.8 cm. PET /CT on 05/30/2024 revealed FDG avid conglomerate mass within the mediastinum extending into the right perihilar region measuring up to 9.8 cm along with left pulmonary hilar and right high paratracheal lymphadenopathy. There is no evidence of FDG avidity outside of the thoracic cavity. Bronchoscopy with biopsy of the mediastinal lesion on 05/28/2024 was noted to be consistent with small cell carcinoma. 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 Brain MRI was ordered to complete staging, but was unable to be obtained due to orthopnea. He is also following with radiation oncology, with plans for concurrent chemo/RT. However, due to progressing SOB an d orthopnea patient is unable to lay flat for radiaition. He was referred to the hospital due to progression of MICHELET. Upon admit chest x-ray showed right perihilar fullness. Viral panel negative. Acute kidney injury noted with creatinine 2.32, GFR 30, bun 71. Serial troponins mildly elevated, cardiology consulted. WBC 11.8, hemoglobin 1.4, platelets 285,000. Pulmonology has been consulted and has started dexamethasone 6 mg every 6 hours. At today's visit patient is has labored breathing, co mplaining of shortness of breath. Also reports mild hand swelling. Denies upper arm, neck and facial swelling. There is concern for SVC syndrome. Review of Systems 10 point ROS is negative except as stated in the HPI Past Medical History Past Medical History: Hypertension, Osteoarthritis (OA), Renal Disease Additional Past Medical History / Comment(s): chronic kidney disease stage 3, lung infection Mycobacterium [place], lung cancer History of Any Multi-Drug Resistant Organisms: None Reported Past Surgical History: No Surgical Hx Reported Additional Past Surgical History / Comment(s): Lt. THR 2022, bronchosopies, Lt. lung biopsy x 2 Past Anesthesia/Blood Transfusion Reactions: No Reported Reaction Past Psychological History: No Psychological Hx Reported Smoking Status: Current every day smoker Medications and Allergies Home Medications Medication Instructions Recorded Confirmed Type Albuterol Inhaler [Ventolin Hfa 2 puff INHALATION RT-QID PRN 06/12/24 06/12/24 History Inhaler] HYDROcodone/APAP 7.5-325MG [Froid 1 tab PO Q6HR PRN 06/12/24 06/12/24 History 7.5-325] Ipratropium-Albuterol Nebulize 3 ml INHALATION RT-QID 06/12/24 06/12/24 History [Duoneb 0.5 mg-3 mg/3 ml Soln] Lidocaine Viscous 2% [Xylocaine 1 dose MUCOUS MEM DIRECTED 06/12/24 06/12/24 History Viscous] Losartan-Hctz 50-12.5 mg [Hyzaar 1 tab PO BID 06/12/24 06/12/24 History 50-12.5] Omeprazole 20 mg PO DAILY 06/12/24 06/12/24 History buPROPion XL [Wellbutrin XL] 150 mg PO DAILY 06/12/24 06/12/24 History dexAMETHasone [Decadron] 4 mg PO BID 06/12/24 06/12/24 History Allergies Allergy/AdvReac Type Severity Reaction Status Date / Time No Known Allergies Allergy Verified 06/12/24 19:13 Physical Exam Vitals: Vital Signs Temp Pulse Resp BP Pulse Ox FiO2 06/13/24 09:00 97.7 F 105 H 38 H 159/96 96 06/13/24 08:32 35 06/13/24 08:30 107 H 38 H 122/66 97 06/13/24 07:54 101 H 38 H 149/98 97 06/13/24 07:52 108 H 22 06/13/24 07:41 97 06/13/24 07:37 102 H 28 H 06/13/24 07:00 97.8 F 102 H 38 H 175/100 97 06/13/24 06:34 87 16 96/60 97 06/13/24 04:25 114 H 24 06/13/24 04:17 101 H 26 H 06/13/24 04:14 101 H 22 155/87 97 06/13/24 02:09 93 16 120/73 96 06/13/24 00:44 99 18 06/13/24 00:43 105 H 18 125/79 98 06/13/24 00:35 93 20 06/12/24 23:10 105 H 18 172/99 97 06/12/24 21:00 102 H 20 166/96 95 06/12/24 20:10 111 H 22 06/12/24 20:04 118 H 22 06/12/24 19:24 105 H 20 174/110 97 06/12/24 19:01 105 H 24 170/108 95 06/12/24 18:34 100 06/12/24 18:18 99 06/12/24 18:13 100 24 175/106 94 L 06/12/24 17:52 105 H 24 193/125 98 06/12/24 17:37 22 06/12/24 15:26 97.4 F L 104 H 22 184/115 95 Intake and Output 06/12/24 06/13/24 06/13/24 22:59 06:59 14:59 Intake Total 1000 Balance 1000 Intake: Intake, IV Titration 1000 Amount Sodium Chloride 0.9% 1, 1000 000 ml @ 75 mls/hr IV . [id number] [facility] Rx#:[id number] Other: Weight 75.75 kg - Constitutional General appearance: mild distress - EENT Eyes: anicteric sclerae, EOMI ENT: hearing grossly normal - Respiratory course throughout Respiratory: bilateral: rhonchi, wheezing - Cardiovascular mild hand swelling noted Rhythm: regular - Gastrointestinal General gastrointestinal: soft, no tenderness - Integumentary Integumentary: no cyanotic - Neurologic Neurologic: CNII-XII intact - Musculoskeletal Musculoskeletal: strength equal bilaterally - Psychiatric Psychiatric: A&O x's 3 Results CBC & Chem 7: 06/14/24 06:08 04/12/25 06:07 Labs: Abnormal Lab Results - Last 24 Hours (Table) 06/12/24 06/12/24 06/12/24 Range/Units 17:50 17:50 17:50 WBC 13.40 H (4.50-10.00) 10*3/uL RBC 4.07 L (4.40-5.60) 10*6/uL Hgb 11.6 L (13.0-17.0) g/dL Hct 34.6 L (39.6-50.0) % MPV 7.5 L (9.5-12.2) fL Immature Gran # 0.11 H (0.00-0.04) 10*3/uL Neutrophils # 12.26 H (1.80-7.70) 10*3/uL Lymphocytes # 0.25 L (0.90-5.00) 10*3/uL Eosinophils # 0.00 L (0.04-0.35) 10*3/uL APTT 20.0 L (22.0-30.0) sec Sodium 128 L (137-145) mmol/L Potassium (3.5-5.1) mmol/L Chloride 90 L (98-107) mmol/L Carbon Dioxide (22-30) mmol/L BUN 71 H (9-20) mg/dL Creatinine 2.32 H (0.66-1.25) mg/dL Glucose 131 H (74-99) mg/dL Magnesium 2.4 H (1.6-2.3) mg/dL ALT 52 H (4-49) U/L Troponin I (0.000-0.034) ng/mL Urine Protein (Negative) Urine Blood (Negative) Hyaline Casts (0-2) /lpf 06/12/24 06/12/24 06/12/24 Range/Units 17:50 20:56 22:50 WBC (4.50-10.00) 10*3/uL RBC (4.40-5.60) 10*6/uL Hgb (13.0-17.0) g/dL Hct (39.6-50.0) % MPV (9.5-12.2) fL Immature Gran # (0.00-0.04) 10*3/uL Neutrophils # (1.80-7.70) 10*3/uL Lymphocytes # (0.90-5.00) 10*3/uL Eosinophils # (0.04-0.35) 10*3/uL APTT (22.0-30.0) sec Sodium (137-145) mmol/L Potassium (3.5-5.1) mmol/L Chloride (98-107) mmol/L Carbon Dioxide (22-30) mmol/L BUN (9-20) mg/dL Creatinine (0.66-1.25) mg/dL Glucose (74-99) mg/dL Magnesium (1.6-2.3) mg/dL ALT (4-49) U/L Troponin I 0.115 H* 0.148 H* (0.000-0.034) ng/mL Urine Protein Trace H (Negative) Urine Blood Trace H (Negative) Hyaline Casts 19 H (0-2) /lpf 06/13/24 06/13/24 06/13/24 Range/Units 00:22 07:13 07:13 WBC 11.88 H (4.50-10.00) 10*3/uL RBC 3.97 L (4.40-5.60) 10*6/uL Hgb 11.4 L (13.0-17.0) g/dL Hct 34.1 L (39.6-50.0) % MPV 7.8 L (9.5-12.2) fL Immature Gran # 0.12 H (0.00-0.04) 10*3/uL Neutrophils # 10.54 H (1.80-7.70) 10*3/uL Lymphocytes # 0.37 L (0.90-5.00) 10*3/uL Eosinophils # 0.00 L (0.04-0.35) 10*3/uL APTT (22.0-30.0) sec Sodium 130 L (137-145) mmol/L Potassium 3.4 L (3.5-5.1) mmol/L Chloride 93 L (98-107) mmol/L Carbon Dioxide 21 L (22-30) mmol/L BUN 68 H (9-20) mg/dL Creatinine 1.97 H (0.66-1.25) mg/dL Glucose 134 H (74-99) mg/dL Magnesium (1.6-2.3) mg/dL ALT (4-49) U/L Troponin I 0.148 H* (0.000-0.034) ng/mL Urine Protein (Negative) Urine Blood (Negative) Hyaline Casts (0-2) /lpf Chest x-ray: report reviewed Assessment and Plan (1) Acute kidney injury Current Visit: Yes Status: Acute Priority: High Code(s): N17.9 - ACUTE KIDNEY FAILURE, UNSPECIFIED SNOMED Code(s): 89078257 (2) Dehydration Current Visit: Yes Status: Acute Priority: High Code(s): E86.0 - DEHYDRATION SNOMED Code(s): 54440165 (3) Lung cancer Current Visit: Yes Status: Acute Priority: High Code(s): C34.90 - MALIGNANT NEOPLASM OF UNSP PART OF UNSP BRONCHUS OR LUNG SNOMED Code(s): 041561077 (4) NSTEMI (non-ST elevated myocardial infarction) Current Visit: Yes Status: Acute Priority: High Code(s): I21.4 - NON-ST ELEVATION (NSTEMI) MYOCARDIAL INFARCTION SNOMED Code(s): 95084393 (5) Respiratory failure Current Visit: Yes Status: Acute Priority: High Code(s): J96.90 - RESPIRATORY FAILURE, UNSP, UNSP W HYPOXIA OR HYPERCAPNIA SNOMED Code(s): 910181668 Plan: Small cell lung cancer: Patient admitted with acute respiratory failure. He has been having progressing SOB and orthopnea. -Oncology history as dictated in the HPI -Plan was to start treatment soon with Cis/DIGITAL PRINTER OPERATOR with concurrent RT, however due to progression of symptoms, outpt treatment was not able to be done -Spoke with Dr. Greene, pt is unable to tolerate laying flat for RT, discussed initiating inpt chemo, as small cell carcinoma is typically very sensitive and responsive to chemo, with hopes to achieve improvement in breathing status, so patient can proceed with RT -Chemo orders have been placed. Due to AZRA and elevated trops, will start with Carbo AUC 4 and etoposide. -Continue dexamethasone -Uric acid 8.8, allopurinol started -Daily monitoring of labs -Once breathing status improved will obtain brain MRI to complete staging Case discussed with pulmonary and admitting team today. Transfer to has been canceled. POC was discussed with patient and spouse, who are agreeable with plan Dr attests: I have performed H&P and developed impression and plan of care for patient, discussed with dictator. I agree with dictated noted, documented as a scribe Time with Patient: Greater than 30
--- NOTE | 2024-06-14 11:35 | P.PN ---
Subjective Patient is seen for follow-up for acute kidney injury and chronic kidney disease. Currently maintained on chemotherapy for small cell lung cancer. Patient also has SVC syndrome. Complaining of shortness of breath. Maintained on normal saline. Patient has been voiding. Renal function improved with serum creatinine down to 1.7 from 1.9 yesterday Objective - Vital Signs Vital signs: Vital Signs Temp 97.5 F L 06/14/24 08:10 Pulse 100 06/14/24 08:34 Resp 22 06/14/24 11:20 BP 151/88 06/14/24 11:20 Pulse Ox 99 06/14/24 11:20 FiO2 35 06/14/24 08:18 Intake & Output 06/13/24 06/14/24 06/14/24 18:59 06:59 18:59 Intake Total 1010 20 10 Output Total 700 Balance 1010 -680 10 Weight 75.75 kg Intake: IV 10 20 10 Invasive Line 1 10 20 10 Intake, IV Titration 1000 Amount Sodium Chloride 0.9% 1, 1000 000 ml @ 75 mls/hr IV . [id number] [facility] Rx#:[id number] Oral 0 Output: Urine 700 Other: Voiding Method Urinal Urinal Urinal # Voids 3 - Exam Patient is awake, short of breath No acute distress Examination of the heart S1 and S2 Examination of the lungs bilateral breath sounds are heard Bilateral wheezing heard Examination of lower extremities shows no significant edema CUT OFF SAWYER LOG exam grossly intact - Labs CBC & Chem 7: 06/14/24 06:08 06/14/24 06:07 Labs: Abnormal Lab Results - Last 24 Hours (Table) 06/13/24 06/14/24 06/14/24 Range/Units 07:13 06:07 06:08 WBC 10.41 H (4.50-10.00) 10*3/uL RBC 3.74 L (4.40-5.60) 10*6/uL Hgb 10.7 L (13.0-17.0) g/dL Hct 32.4 L (39.6-50.0) % MPV 7.7 L (9.5-12.2) fL Immature Gran # 0.15 H (0.00-0.04) 10*3/uL Neutrophils # 9.31 H (1.80-7.70) 10*3/uL Lymphocytes # 0.36 L (0.90-5.00) 10*3/uL Eosinophils # 0.00 L (0.04-0.35) 10*3/uL Sodium 131 L (137-145) mmol/L Chloride 95 L (98-107) mmol/L Carbon Dioxide 21 L (22-30) mmol/L BUN 70 H (9-20) mg/dL Creatinine 1.78 H (0.66-1.25) mg/dL Glucose 116 H (74-99) mg/dL Uric Acid 8.8 H 9.8 H (3.5-8.5) mg/dL Phosphorus 5.3 H (2.5-4.5) mg/dL ALT 69 H (4-49) U/L Assessment and Plan Assessment: 1. Acute kidney injury secondary to ATN secondary to NSAIDs and further worsen with the use of losartan and hydrochlorothiazide. Creatinine 2.32 on admission and is 1.7 today. No hydronephrosis noted on kidney ultrasound. Right kidney was not fully visualized. Status post IV fluids 2. Chronic kidney disease stage IIIa with baseline creatinine 1.2-1.4 secondary to nephrosclerosis. 3. Hypovolemic hyponatremia further worsened with the use of thiazide diuretic. Improved. 4. Hypokalemia from poor intake and diuretic use. 5. 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 Radiation oncology consulted. 6. Small cell lung cancer. Pulmonology following. 7. Hypertension with chronic kidney disease. Plan: Repeat chest x-ray today DC IV fluids Repeat labs in a.m. Overall prognosis guarded
--- NOTE | 2024-06-14 13:04 | P.PN ---
Subjective Progress Note Date: 06/14/24 Principal diagnosis: Acute hypoxic respiratory failure, small cell lung cancer, SVC syndrome. 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 He was last seen by Dr. Kaplan in February 2023. More recently in May 2024 the patient had been diagnosed with pneumonia and treated by his PCP without much im provement. He had seen Dr. Daly again in follow-up. CT scan of the chest was performed and a right perihilar mass and a left upper lobe lesion. Bronchoscopy and biopsies were performed on May 28, 2024 that were positive for small cell carcinoma. There was tumor at the main caro and tumor obstructing the right upper lobe. He was recently seen by Dr. Aryan Rodriguez and Dr. Greene for chemotherapy and radiation plans however the patient has been unable to lay flat for radiation. He has been unable to lay flat for an MRI of the brain. He presented here to the emergency room yesterday with worsening shortness of breath, cough and congestion. Chest x-ray continues to show right perihilar fullness and a left upper lung consolidation. White count 11.8. Hemoglobin 11.4. Platelets 285. Sodium 130. Potassium 3.4. Bicarb 21. BUN 68. Creatinine 1.97. Troponin 0.115, 0.148, 0.148. Urinalysis clean. Viral screen negative. He is seen today in consultation in the emergency department. He is currently sitting up in a chair. He is in mild respiratory distress. He has a loose congested cough. He has distended neck veins. slight increase edema of the right arm and concerns regarding superior vena cava syndrome. Patient was seen today on 06/14/2024, patient is basically about the same, slightly better compared to yesterday, he is yet to be started on chemotherapy, continues to have cough wheezing shortness of breath, still cannot lay flat. Patient is on bronchodilators, antibiotics, and steroids, being followed by now by oncology. Patient could not be seen by radiation oncology because he could not lay flat, and could not be started on radiation therapy for his SVC. WBC 10.4 hemoglobin 10.7 electrolytes are normal BUN is 70 creatinine 1.78, patient is being followed by nephrology. Patient remains on Decadron, remains on bronchodilators for his underlying COPD and for his SVC syndrome. Objective - Vital Signs Vital signs: Vital Signs Temp 97.5 F L 06/14/24 08:10 Pulse 100 06/14/24 08:34 Resp 22 06/14/24 11:20 BP 151/88 06/14/24 11:20 Pulse Ox 99 06/14/24 11:20 FiO2 35 06/14/24 08:18 Intake & Output 06/13/24 06/14/24 06/14/24 18:59 06:59 18:59 Intake Total 1010 20 10 Output Total 700 300 Balance 1010 -680 -290 Weight 75.75 kg Intake: IV 10 20 10 Invasive Line 1 10 20 10 Intake, IV Titration 1000 Amount Sodium Chloride 0.9% 1, 1000 000 ml @ 75 mls/hr IV . [id number] [facility] Rx#:[id number] Oral 0 Output: Urine 700 300 Other: Voiding Method Urinal Urinal Urinal # Voids 3 - Exam GENERAL EXAM: 58-year-old white male in mild respiratory distress on 4 L nasal cannula HEAD: Normocephalic. EYES: Normal reaction of pupils, equal size. NOSE: Clear with pink turbinates. THROAT: No erythema or exudates. NECK: Noted distended neck veins no masses, no JVD. CHEST: No chest wall deformity. Noted distended veins LUNGS: Rhonchi and wheezes noted bilaterally. CVS: S1 and S2 normal with no audible murmur, regular rhythm. ABDOMEN: No hepatosplenomegaly, normal bowel sounds, no guarding or rigidity. SKIN: No rashes CENTRAL NERVOUS SYSTEM: No focal deficits, tone is normal in all 4 extremities. EXTREMITIES: Minimal edema in right upper extremity. - Labs CBC & Chem 7: 06/14/24 06:08 06/14/24 06:07 Labs: Abnormal Lab Results - Last 24 Hours (Table) 06/14/24 06/14/24 Range/Units 06:07 06:08 WBC 10.41 H (4.50-10.00) 10*3/uL RBC 3.74 L (4.40-5.60) 10*6/uL Hgb 10.7 L (13.0-17.0) g/dL Hct 32.4 L (39.6-50.0) % MPV 7.7 L (9.5-12.2) fL Immature Gran # 0.15 H (0.00-0.04) 10*3/uL Neutrophils # 9.31 H (1.80-7.70) 10*3/uL Lymphocytes # 0.36 L (0.90-5.00) 10*3/uL Eosinophils # 0.00 L (0.04-0.35) 10*3/uL Sodium 131 L (137-145) mmol/L Chloride 95 L (98-107) mmol/L Carbon Dioxide 21 L (22-30) mmol/L BUN 70 H (9-20) mg/dL Creatinine 1.78 H (0.66-1.25) mg/dL Glucose 116 H (74-99) mg/dL Uric Acid 9.8 H (3.5-8.5) mg/dL ALT 69 H (4-49) U/L Assessment and Plan Assessment: Impression: Acute hypoxemic respiratory failure secondary to small cell lung cancer, superior vena cava syndrome and COPD exacerbation Recent diagnosis of small cell lung cancer in May 2024, unable to lay flat for radiation treatment, plan is for induction chemotherapy inpatient today or tomorrow 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
--- NOTE | 2024-06-14 13:48 | P.PN ---
Subjective HISTORY OF PRESENT ILLNESS: This is 58-year-old male with past medical history of hypertension, small cell lung cancer recently diagnosed, SVC syndrome, hypertension, chronic kidney disease. We have been asked to evaluate the patient for NSTEMI. Patient states that he came into the hospital because he was having difficulty breathing which has been gradually worsening. Patient also complains of cough that is nonproductive and wheezing. He quit smoking 1 and half weeks ago. He states he was diagnosed with cancer 1-1/2 weeks ago. He has had 15 pound weight loss over the past month. He denies previous cardiac history and does not follow with a recreational aide. He denies chest pain. He states his oncologist is Dr. Aryan Rodriguez. Blood pressure 151/90, heart rate 104, respiratory rate 38, pulse ox 96% on 4 L nasal cannula. PET scan performed on 05/30/2024 revealed conglomerate mass in the mediastinum with peripheral FDG activity compatible with malignancy. Multiple FDG avid lymph nodes in the mediastinum also present which closely approximate to the large mass. No evidence of metastatic disease below the diaphragm. Pulmonary medicine and oncology are on consult as well as radiology oncology addressing immediate need to treat SVC syndrome. -EKG: Sinus rhythm with nonspecific ST changes. -Chest x-ray: Right perihilar fullness. -Renal ultrasound Limited exam. Prominent prostate. Nonvisualization of the right kidney. -Laboratory studies: WBC 13.4 with repeat 11.8, hemoglobin 9.4, sodium 130, potassium 3.4, BUN 68 and creatinine 1.97. Patient presented with BUN of 71 and creatinine 2.32. Troponin 0.115, 0.148, 0.148. Cepheid viral panel not detected. -Home cardiac medications: Losartan hydrochlorothiazide 50-12.5 mg twice daily. 06/14/2024 Patient examined this morning. Patient is sitting up in the chair. Patient's family is present. Patient currently denies any chest pain or pressure. He does report that his shortness of breath is improving today. Initially there was talk of transfer to tertiary care center. However according to patient's nurse that has been canceled and patient is going to begin chemotherapy here today. Patient remains on 3 L nasal cannula. Telemetry reveals sinus mechanism. Echocardiogram completed revealing ejection fraction 65 to 70%, hyperdynamic left ventricular systolic function, no obvious regional wall motion abnormalities, severe pulmonary hypertension, mild mitral regurgitation, small pericardial effusion PHYSICAL EXAM: VITAL SIGNS: Reviewed. GENERAL: Well-developed in no acute distress. NECK: Supple. Positive JVD. LUNGS: Respirations even and unlabored. Lungs with wheezing and rhonchi noted. HEART: Regular rate and rhythm. S1 and S2 heard. EXTREMITIES: Normal range of motion. No clubbing or cyanosis. Peripheral pulses intact. 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 Repeat in a.m. Continue telemetry monitoring Further recommendations pending patient course Nurse practitioner note has been reviewed by physician. Signing provider agrees with the documented findings, assessment, and plan of care documented by INNER LAYER SCRUBBER TENDER as a scribe. Objective - Vital Signs Vital signs: Vital Signs Temp 97.5 F L 06/14/24 08:10 Pulse 97 06/14/24 13:10 Resp 18 06/14/24 13:10 BP 151/88 06/14/24 11:20 Pulse Ox 99 06/14/24 11:20 FiO2 35 06/14/24 08:18 Intake & Output 06/13/24 06/14/24 06/14/24 18:59 06:59 18:59 Intake Total 1010 20 20 Output Total 700 300 Balance 1010 -680 -280 Weight 75.75 kg Intake: IV 10 20 20 Invasive Line 1 10 20 20 Intake, IV Titration 1000 Amount Sodium Chloride 0.9% 1, 1000 000 ml @ 75 mls/hr IV . [id number] [facility] Rx#:[id number] Oral 0 Output: Urine 700 300 Other: Voiding Method Urinal Urinal Urinal # Voids 3 - Labs CBC & Chem 7: 06/14/24 06:08 06/14/24 06:07 Labs: Abnormal Lab Results - Last 24 Hours (Table) 06/14/24 06/14/24 Range/Units 06:07 06:08 WBC 10.41 H (4.50-10.00) 10*3/uL RBC 3.74 L (4.40-5.60) 10*6/uL Hgb 10.7 L (13.0-17.0) g/dL Hct 32.4 L (39.6-50.0) % MPV 7.7 L (9.5-12.2) fL Immature Gran # 0.15 H (0.00-0.04) 10*3/uL Neutrophils # 9.31 H (1.80-7.70) 10*3/uL Lymphocytes # 0.36 L (0.90-5.00) 10*3/uL Eosinophils # 0.00 L (0.04-0.35) 10*3/uL Sodium 131 L (137-145) mmol/L Chloride 95 L (98-107) mmol/L Carbon Dioxide 21 L (22-30) mmol/L BUN 70 H (9-20) mg/dL Creatinine 1.78 H (0.66-1.25) mg/dL Glucose 116 H (74-99) mg/dL Uric Acid 9.8 H (3.5-8.5) mg/dL ALT 69 H (4-49) U/L
[2024-06-14] MEDS: FAMOTIDINE 20 MG/2 ML VIAL IVP SCH (13:59)
[2024-06-14] MEDS ORDERED: DEXAMETHASONE SOD PHOSPHATE 10 MG/ML 1 ML VIAL IVP SCH (14:00)
--- NOTE | 2024-06-14 14:01 | P.PN ---
Progress Note - Text Progress Note Date: 06/14/24 Chief Complaint: Short of breath Pleasant 58-year-old male, follows with Dr. Heena Nascimento as his PCP. 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 Patient back in 2021. Underwent biopsy of a lung lung mass. 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 Received treatment for a year. May 23, 2024: CT chest: Showed large mediastinal infiltrative mass. Encasement of the surrounding structures. Lymph nodes positive. May 28: Dr. Terrell did a bronchoscopy. Multiple biopsies were done and obstructing tumor was found. More details in his notes. 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 May 30 PET scan was done: That showed mass in the mediastinum. Lymph nodes also positive. No evidence of metastatic disease below the diaphragm. For 3 to 4 days patient been having increasing raspiness in the chest. Short of breath. Dry cough. No phlegm. Decreased appetite. In the last month patient lost about 15 pounds. Sitting up in the recliner audibly rattling in the chest. Patient was due to have a MRI. June 13: This morning Dr. King called me that patient should be transferred to outside facility as our radiation team will not be able to do radiation because of patient's pulmonary status. Patient may need a BiPAP. [facility]. Case management was involved. Later got a call from Dr. Mitchell oncology that patient will benefit from chemotherapy as opposed to radiation at this point. Hence chemotherapy is being arranged here. Transfer is being canceled. Earlier today I spoke at length with the patient and his . Patient also having some trouble swallowing. Ensure ordered. Total time spent today about 1 hour 15 minutes with over 40 minutes of discussion. June 14: Up in the chair. Some rattling in the chest. Chemotherapy pharmacist recommended to clogged in his get his chemotherapy drugs. Only eating small amounts. Active Medications Hydrocodone Bitart/Acetaminophen (Hydrocodone/Apap 7.5-325mg 1 Each Tab) 1 each PO Q6HR PRN PRN Reason: Pain Last Admin: 06/14/24 13:02 Dose: 1 each Albuterol/Ipratropium (Ipratropium-Albuterol 3 Ml Neb) 3 ml INHALATION RT-Q4H [facility] Last Admin: 06/14/24 12:58 Dose: 3 ml Albuterol/Ipratropium (Ipratropium-Albuterol 3 Ml Neb) 3 ml INHALATION RT-Q4H PRN PRN Reason: Dyspnea Allopurinol (Allopurinol 300 Mg Tab) 300 mg PO DAILY@1999 [facility] Last Admin: 06/13/24 20:08 Dose: 300 mg Amlodipine Besylate (Amlodipine 5 Mg Tab) 5 mg PO DAILY [facility] Last Admin: 06/14/24 09:23 Dose: 5 mg Budesonide (Budesonide 1 Mg/2 Ml Nebu) 1 mg INHALATION RT-BID [facility] Last Admin: 06/14/24 08:18 Dose: 1 mg Bupropion HCl (Bupropion Xl 150 Mg Tab.Er.24h) 150 mg PO DAILY [facility] Last Admin: 06/14/24 09:24 Dose: 150 mg Clonidine (Clonidine Hcl 0.2 Mg Tab) 0.2 mg PO BID [facility] Last Admin: 06/14/24 09:23 Dose: 0.2 mg Dexamethasone Sodium Phosphate (Dexamethasone Sod Phosphate 10 Mg/Ml 1 Ml Vial) 6 mg IVP Q6H [facility] Last Admin: 06/14/24 09:26 Dose: 6 mg Docusate Sodium (Docusate 100 Mg Cap) 100 mg PO BID PRN PRN Reason: Constipation Enoxaparin Sodium (Enoxaparin 40 Mg/0.4 Ml Syringe) 40 mg SQ DAILY [facility] Last Admin: 06/14/24 09:25 Dose: 40 mg Famotidine (Famotidine 20 Mg/2 Ml Vial) 20 mg IVP Q24H [facility] Stop: 06/16/24 14:01 Sodium Chloride (Saline 0.9%) 1,000 mls @ 75 mls/hr IV .[id number] [facility] Last Admin: 06/14/24 02:11 Dose: Not Given Ondansetron HCl 16 mg/ Sodium (Chloride) 58 mls @ 232 mls/hr IVPB Q24H [facility] Stop: 06/16/24 14:14 Carboplatin 260 mg/ Sodium (Chloride) 276 mls @ 276 mls/hr IV ONCE ONE Stop: 06/14/24 15:59 Etoposide 190 mg/ Sodium (Chloride) 509.5 mls @ 509.5 mls/hr IV Q24H [facility] Stop: 06/16/24 16:59 Loperamide HCl (Loperamide 2 Mg Cap) 2 mg PO QID PRN PRN Reason: Diarrhea Naloxone HCl (Naloxone 0.4 Mg/Ml 1 Ml Vial) 0.2 mg IV Q2M PRN PRN Reason: Opioid Reversal Ondansetron HCl (Ondansetron 4 Mg/2 Ml Vial) 4 mg IVP Q6HR PRN PRN Reason: Nausea And Vomiting Pantoprazole Sodium (Pantoprazole 40 Mg Tablet) 40 mg PO DAILY [facility] Last Admin: 06/14/24 09:24 Dose: 40 mg Sodium Bicarbonate (Salt And Soda Mouthwash 1,000 Ml) 5 ml PO 5XD [facility] Last Admin: 06/14/24 11:22 Dose: 5 ml Social history: Alcohol occasionally. . Stopped smoking a year and a half ago. Used to work with a [employer]. On examination: VITAL SIGNS: 97.5, 95, 24, 04/04/1985, was on BiPAP earlier GENERAL APPEARANCE: Up in a recliner. Coughing. Audible rattling in the chest HEENT: Normal external appearance of nose and ear. Oral cavity normal. EYES: Pupils equal. Conjunctiva normal. NECK: All neck veins are prominent in standing out RESPIRATORY: Respiratory effort increased, some wheezing. Audible rattling in the chest CARDIOVASCULAR: First and second sounds normal. No edema. ABDOMEN: Soft. Liver and spleen not palpable. No tenderness. No mass palpable. PSYCHIATRY: Alert and oriented x3. Mood and affect anxious INVESTIGATIONS, reviewed in the clinical context: June 14: White count 10.4 hemoglobin 10.7 sodium 131 potassium 3.9 BUN 70 creatinine 1.78 2D echo: EF 65 to 70%. Hyperdynamic left ventricular systolic function. Severe pulmonary hypertension. Renal ultrasound: Nonspecific June 13: White count 11.8 hemoglobin 11.4 platelets 285 sodium 130 potassium 3.4 BUN 68 creatinine 1.97 procalcitonin 0.33 Chest x-ray film personally reviewed by me-right hilar mass. Left upper lobe mass. EKG tracing personally reviewed by me-sinus tachycardia. Nonspecific ST-T wave changes. June 12: White count 13.4 hemoglobin 11.6 platelets 290 sodium 128 potassium 4 BUN 31 creatinine 2.32 Troponin I 0.115, 0.148 Influenza type B, type B, RSV, SARS-CoV-2: Not detected Recent testing May 23, 2024: CT chest: Showed large mediastinal infiltrative mass. Encasement of the surrounding structures. Lymph nodes positive. May 28: Dr. Terrell did a bronchoscopy. Multiple biopsies were done and obstructing tumor was found. More details in his notes. 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 May 30 PET scan was done: That showed mass in the mediastinum. Lymph nodes also positive. No evidence of metastatic disease below the diaphragm. 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 Mitchell from oncology. Chemotherapy: Carboplatin, etoposide. Will be started later this afternoon. -Small cell lung cancer. No metastatic disease. Not beyond the diaphragm. Follows with Dr. COOPER pulmonary. Chemotherapy will be started today. Carboplatin, etoposide. Oncology following - Acute hypoxic respiratory failure secondary to COPD exacerbation/lung cancer. Patient having trouble clearing secretions.: Slow to respond Patient required BiPAP this morning. -Acute COPD exacerbation in a previous smoker: Slow to respond DuoNeb 4. Nebulized Pulmicort. IV Decadron l -Kidney injury. Unknown acute versus chronic. UA: Trace protein. Renal ultrasound: Unremarkable. IV fluids. Repeat lab - Positive troponin. Clinical picture not compatible with ACS. Especially in the setting of renal failure. 2D echo no wall motion abnormality. Telemetry. -Essential hypertension, Hyzaar/HCTZ discontinued. Catapres 0.2 twice daily -Normocytic anemia likely from underlying malignancy -Hyponatremia, likely hypovolemic given decreased oral intake: Some improvement Repeat labs and serum osmolality -Full code For chemotherapy today.. Pulmonary oncology following. Past Medical History Past Medical History: Hypertension, Osteoarthritis (OA), Renal Disease Additional Past Medical History / Comment(s): chronic kidney disease stage 3, lung infection Mycobacterium [place], lung cancer History of Any Multi-Drug Resistant Organisms: None Reported Past Surgical History: No Surgical Hx Reported Additional Past Surgical History / Comment(s): Lt. THR 2022, bronchosopies, Lt. lung biopsy x 2 Past Anesthesia/Blood Transfusion Reactions: No Reported Reaction Past Psychological History: No Psychological Hx Reported Smoking Status: Current every day smoker
[2024-06-14] MEDS: ONDANSETRON 16 MG in SODIUM CHLORIDE 0.9% 50 ML IVPB SCH (14:02)
[2024-06-14] MEDS: SODIUM CHLORIDE 0.9% IV ONE (14:48)
[2024-06-14] MEDS: CARBOPLATIN IV ONE (14:48)
--- NOTE | 2024-06-14 16:17 | P.PN ---
Subjective Progress Note Date: 06/14/24 No acute events overnight. Breathing still labored, but pt reports improvement in breathing since admit. SPO2 99% on 3L. Plan to start chemo today Objective - Vital Signs Vital signs: Vital Signs Temp 97.8 F 06/14/24 15:11 Pulse 94 06/14/24 15:11 Resp 20 06/14/24 15:11 BP 124/83 06/14/24 15:11 Pulse Ox 96 06/14/24 15:11 FiO2 35 06/14/24 08:18 Intake & Output 06/13/24 06/14/24 06/14/24 18:59 06:59 18:59 Intake Total 1010 20 20 Output Total 700 300 Balance 1010 -680 -280 Weight 75.75 kg Intake: IV 10 20 20 Invasive Line 1 10 20 20 Intake, IV Titration 1000 Amount Sodium Chloride 0.9% 1, 1000 000 ml @ 75 mls/hr IV . [id number] ROLLY Rx#:[id number] Oral 0 Output: Urine 700 300 Other: Voiding Method Urinal Urinal Urinal # Voids 3 - Constitutional General appearance: Present: average body habitus, mild distress - EENT Eyes: Present: anicteric sclerae, EOMI ENT: Present: hearing grossly normal - Respiratory Details: breathing labored - Cardiovascular Details: skin warm and dry - Integumentary Integumentary: Absent: cyanotic, jaundiced - Neurologic Neurologic: Present: CNII-XII intact - Musculoskeletal Musculoskeletal: Present: strength equal bilaterally - Psychiatric Psychiatric: Present: A&O x's 3 - Labs CBC & Chem 7: 06/14/24 06:08 06/14/24 06:07 Labs: Abnormal Lab Results - Last 24 Hours (Table) 06/14/24 06/14/24 Range/Units 06:07 06:08 WBC 10.41 H (4.50-10.00) 10*3/uL RBC 3.74 L (4.40-5.60) 10*6/uL Hgb 10.7 L (13.0-17.0) g/dL Hct 32.4 L (39.6-50.0) % MPV 7.7 L (9.5-12.2) fL Immature Gran # 0.15 H (0.00-0.04) 10*3/uL Neutrophils # 9.31 H (1.80-7.70) 10*3/uL Lymphocytes # 0.36 L (0.90-5.00) 10*3/uL Eosinophils # 0.00 L (0.04-0.35) 10*3/uL Sodium 131 L (137-145) mmol/L Chloride 95 L (98-107) mmol/L Carbon Dioxide 21 L (22-30) mmol/L BUN 70 H (9-20) mg/dL Creatinine 1.78 H (0.66-1.25) mg/dL Glucose 116 H (74-99) mg/dL Uric Acid 9.8 H (3.5-8.5) mg/dL ALT 69 H (4-49) U/L Assessment and Plan (1) Acute kidney injury Current Visit: Yes Status: Acute Priority: High Code(s): N17.9 - ACUTE KIDNEY FAILURE, UNSPECIFIED SNOMED Code(s): 37158129 (2) Dehydration Current Visit: Yes Status: Acute Priority: High Code(s): E86.0 - DEHYDRATION SNOMED Code(s): 86875484 (3) Lung cancer Current Visit: Yes Status: Acute Priority: High Code(s): C34.90 - MALIGNANT NEOPLASM OF UNSP PART OF UNSP BRONCHUS OR LUNG SNOMED Code(s): 323639311 (4) NSTEMI (non-ST elevated myocardial infarction) Current Visit: Yes Status: Acute Priority: High Code(s): I21.4 - NON-ST ELEVATION (NSTEMI) MYOCARDIAL INFARCTION SNOMED Code(s): 13546548 (5) Respiratory failure Current Visit: Yes Status: Acute Priority: High Code(s): J96.90 - RESPIRATORY FAILURE, UNSP, UNSP W HYPOXIA OR HYPERCAPNIA SNOMED Code(s): 938462582 Plan: Small cell lung cancer: Patient admitted with acute respiratory failure. He has been having progressing SOB and orthopnea. 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 Greene, pt is unable to tolerate laying flat for RT, discussed initiating inpt chemo, as small cell carcinoma is typically very sensitive and responsive to chemo, with hopes to achieve improvement in breathing status, so patient can proceed with RT -Chemo orders have been placed. Due to AZRA and elevated trops, will start treatment with Carbo AUC 4 rather than cisplatin. Cisplatin will be considered for subsequent cycles -Continue dexamethasone -Uric acid 9.8 today, allopurinol started -Daily monitoring of labs -Once breathing status improved will obtain brain MRI to complete staging
[2024-06-14] MEDS: ETOPOSIDE 190 MG in SODIUM CHLORIDE 0.9% 500 ML 500 ML IV SCH (16:20)
[2024-06-15 06:31] LABS: Basophils # (A) 0.01 10*3/uL (0.00-0.10); Basophils % (A) 0.1 %; HCT 34.1 % (39.6-50.0); HGB 11.3 g/dL (13.0-17.0); Lymphocytes # (A) 0.21 10*3/uL (0.90-5.00); Lymphocytes % (A) 1.6 %; MCH 28.8 pg (27.0-32.0); MCHC 33.1 g/dL (32.0-37.0); Mean Platelet Volume 7.7 fL (9.5-12.2); Monocytes % (A) 6.3 %; Neutrophils % (A) 90.7 %; Platelet Count 328 10*3/uL (140-440); RBC 3.92 10*6/uL (4.40-5.60); RDW 14.4 % (11.5-14.5); WBC 12.78 10*3/uL (4.50-10.00)
[2024-06-15 06:52] LABS: ALT 129 U/L (4-49); AST 80 U/L (17-59); African American GFR (CKD) 51 (>60 ml/min/1.73 sqM); Albumin 4.3 g/dL (3.5-5.0); Alkaline Phosphatase 85 U/L (38-126); Anion Gap 14 mmol/L; Blood Urea Nitrogen 63 mg/dL (9-20); Calcium 9.8 mg/dL (8.4-10.2); Carbon Dioxide 21 mmol/L (22-30); Chloride 99 mmol/L (98-107); Glucose 116 mg/dL (74-99); Non-African American GFR(CKD) 44 (>60 ml/min/1.73 sqM); Potassium 3.9 mmol/L (3.5-5.1); Sodium 134 mmol/L (137-145); Total Bilirubin 0.5 mg/dL (0.2-1.3); Total Protein 7.5 g/dL (6.3-8.2); Uric Acid 8.8 mg/dL (3.5-8.5)
[2024-06-15] MEDS: ALPRAZolam 0.5 MG TAB PO PRN (10:27)
[2024-06-15] MEDS: DOCUSATE 100 MG CAP PO PRN (10:28)
--- NOTE | 2024-06-15 11:11 | XR ---
EXAMINATION TYPE: XR chest 1V DATE OF EXAM: 06/15/2024 10:24 AM COMPARISON: PET/CT 05/30/2024 CLINICAL INDICATION: Male, 58 years old with history of chf, TECHNIQUE: XR chest 1V view(s) obtained. FINDINGS: The heart size is normal. The pulmonary vasculature is normal. Nodules persist in the left upper lobe. There is fullness in the right hilar region. Underlying mass should be considered There is elevation right diaphragm. IMPRESSION: 1. Stable appearance chest x-ray. 2. Underlying fullness in the right hilar region in the left upper lobe mass remains present [facility], , 06/15/2024 11:08 AM
--- NOTE | 2024-06-15 11:37 | P.PN ---
Subjective Patient is seen for follow-up for acute kidney injury and chronic kidney disease. Currently maintained on chemotherapy for small cell lung cancer. Patient also has SVC syndrome. Complaining of shortness of breath. Maintained on normal saline. Patient has been voiding. Renal function improved with serum creatinine down to 1.67 from 2.3 on admission Objective - Vital Signs Vital signs: Vital Signs Temp 97.4 F L 06/15/24 09:00 Pulse 100 06/15/24 08:51 Resp 18 06/15/24 08:04 BP 161/69 06/15/24 08:04 Pulse Ox 93 L 06/15/24 09:00 FiO2 35 06/14/24 08:18 Intake & Output 06/14/24 06/15/24 06/15/24 18:59 06:59 18:59 Intake Total 20 Output Total 700 800 225 Balance -000 -800 -225 Weight 74.9 kg Intake: IV 20 Invasive Line 1 20 Oral 0 Output: Urine 700 800 225 Other: Voiding Method Urinal Urinal Urinal # Voids 2 - Exam Patient is awake, short of breath No acute distress Examination of the heart S1 and S2 Examination of the lungs bilateral breath sounds are heard Bilateral wheezing heard Examination of lower extremities shows no significant edema [employer]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 - Labs CBC & Chem 7: 06/15/24 05:38 06/15/24 05:38 Labs: Abnormal Lab Results - Last 24 Hours (Table) 06/15/24 06/15/24 Range/Units 05:38 05:38 WBC 12.78 H (4.50-10.00) 10*3/uL RBC 3.92 L (4.40-5.60) 10*6/uL Hgb 11.3 L (13.0-17.0) g/dL Hct 34.1 L (39.6-50.0) % MPV 7.7 L (9.5-12.2) fL Immature Gran # 0.16 H (0.00-0.04) 10*3/uL Neutrophils # 11.60 H (1.80-7.70) 10*3/uL Lymphocytes # 0.21 L (0.90-5.00) 10*3/uL Eosinophils # 0.00 L (0.04-0.35) 10*3/uL Sodium 134 L (137-145) mmol/L Carbon Dioxide 21 L (22-30) mmol/L BUN 63 H (9-20) mg/dL Creatinine 1.67 H (0.66-1.25) mg/dL Glucose 116 H (74-99) mg/dL Uric Acid 8.8 H (3.5-8.5) mg/dL AST 80 H (17-59) U/L ALT 129 H (4-49) U/L Assessment and Plan Assessment: 1. Acute kidney injury secondary to ATN secondary to NSAIDs and further worsened with the use of losartan and hydrochlorothiazide. Creatinine 2.32 on admission and is 1.67 today. No hydronephrosis noted on kidney ultrasound. Right kidney was not fully visualized. Status post IV fluids 2. Chronic kidney disease stage IIIa with baseline creatinine 1.2-1.4 secondary to nephrosclerosis. 3. Hypovolemic hyponatremia further worsened with the use of thiazide diuretic. Improved. 4. Hypokalemia from poor intake and diuretic use. 5. 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 Radiation oncology consulted. 6. Small cell lung cancer. Pulmonology following. 7. Hypertension with chronic kidney disease. Plan: Continue IV fluids, decrease to 50 cc an hour. Chest x-ray does not show pulmonary vascular congestion. Repeat labs in a.m. Overall prognosis guarded
--- NOTE | 2024-06-15 11:51 | P.PN ---
Subjective Progress Note Date: 06/15/24 Principal diagnosis: Acute hypoxic respiratory failure, small cell lung cancer, SVC syndrome. 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 He was last seen by Dr. Kaplan in February 2023. More recently in May 2024 the patient had been diagnosed with pneumonia and treated by his PCP without much improvement. He had seen Dr. Daly again in follow-up. CT scan of the chest was performed and a right perihilar mass and a left upper lobe lesion. Bronchoscopy and biopsies were performed on May 28, 2024 that were positive for small cell carcinoma. There was tumor at the main caro and tumor obstructing the right upper lobe. He was recently seen by Dr. Aryan Rodriguez and Dr. Greene for chemo therapy and radiation plans however the patient has been unable to lay flat for radiation. He has been unable to lay flat for an MRI of the brain. He presented here to the emergency room yesterday with worsening shortness of breath, cough and congestion. Chest x-ray continues to show right perihilar fullness and a left upper lung consolidation. White count 11.8. Hemoglobin 11.4. Platelets 285. Sodium 130. Potassium 3.4. Bicarb 21. BUN 68. Creatinine 1.97. Troponin 0.115, 0.148, 0.148. Urinalysis clean. Viral screen negative. He is seen today in consultation in the emergency department. He is currently sitting up in a chair. He is in mild respiratory distress. He has a loose congested cough. He has distended neck veins. slight increase edema of the right arm and concerns regarding superior vena cava syndrome. Patient was seen today on 06/14/2024, patient is basically about the same, slightly better compared to yesterday, he is yet to be started on chemotherapy, continues to have cough wheezing shortness of breath, still cannot lay flat. Patient is on bronchodilators, antibiotics, and steroids, being followed by now by oncology. Patient could not be seen by radiation oncology because he could not lay flat, and could not be started on radiation therapy for his SVC. WBC 10.4 hemoglobin 10.7 electrolytes are normal BUN is 70 creatinine 1.78, patient is being followed by nephrology. Patient remains on Decadron, remains on bronchodilators for his underlying COPD and for his SVC syndrome. Patient was seen today on 06/15/2024, patient is basically about the same today, continues to have cough wheezing shortness of breath, breathing remains labored, O2 saturation 99% on 3 L nasal cannula patient has been started on chemotherapy including carboplatin and etoposide. WBC count today is 12.7 hemoglobin 11.3 electrolytes are normal BUN is 63 creatinine 1.67. Objective - Vital Signs Vital signs: Vital Signs Temp 97.4 F L 06/15/24 09:00 Pulse 100 06/15/24 08:51 Resp 18 06/15/24 08:04 BP 161/69 06/15/24 08:04 Pulse Ox 93 L 06/15/24 09:00 FiO2 35 06/14/24 08:18 Intake & Output 06/14/24 06/15/24 06/15/24 18:59 06:59 18:59 Intake Total 20 Output Total 700 800 225 Balance -680 -800 -225 Weight 74.9 kg Intake: IV 20 Invasive Line 1 20 Oral 0 Output: Urine 700 800 225 Other: Voiding Method Urinal Urinal Urinal # Voids 2 - Exam GENERAL EXAM: 58-year-old white male in mild respiratory distress on 3 L nasal cannula HEAD: Normocephalic. EYES: Normal reaction of pupils, equal size. NOSE: Clear with pink turbinates. THROAT: No erythema or exudates. NECK: Significantly distended neck veins no masses, no JVD. CHEST: No chest wall deformity. Noted distended veins LUNGS: Rhonchi and wheezes noted bilaterally. CVS: S1 and S2 normal with no audible murmur, regular rhythm. ABDOMEN: No hepatosplenomegaly, normal bowel sounds, no guarding or rigidity. SKIN: No rashes CENTRAL NERVOUS SYSTEM: No focal deficits, tone is normal in all 4 extremities. EXTREMITIES: Minimal edema in right upper extremity. - Labs CBC & Chem 7: 06/15/24 05:38 06/15/24 05:38 Labs: Abnormal Lab Results - Last 24 Hours (Table) 06/15/24 06/15/24 Range/Units 05:38 05:38 WBC 12.78 H (4.50-10.00) 10*3/uL RBC 3.92 L (4.40-5.60) 10*6/uL Hgb 11.3 L (13.0-17.0) g/dL Hct 34.1 L (39.6-50.0) % MPV 7.7 L (9.5-12.2) fL Immature Gran # 0.16 H (0.00-0.04) 10*3/uL Neutrophils # 11.60 H (1.80-7.70) 10*3/uL Lymphocytes # 0.21 L (0.90-5.00) 10*3/uL Eosinophils # 0.00 L (0.04-0.35) 10*3/uL Sodium 134 L (137-145) mmol/L Carbon Dioxide 21 L (22-30) mmol/L BUN 63 H (9-20) mg/dL Creatinine 1.67 H (0.66-1.25) mg/dL Glucose 116 H (74-99) mg/dL Uric Acid 8.8 H (3.5-8.5) mg/dL AST 80 H (17-59) U/L ALT 129 H (4-49) U/L Assessment and Plan Assessment: Impression: Acute hypoxemic respiratory failure secondary to small cell lung cancer, superior vena cava syndrome and COPD exacerbation Recent diagnosis of small cell lung cancer in May 2024, unable to lay flat for radiation treatment, plan is for induction chemotherapy inpatient today or tomorrow 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 Chronic obstructive pulmonary disease Former heavy smoker however quit 1-1/2 years ago 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 Continue present supportive care measures Continue bronchodilators Continue Decadron Continue Pulmicort and Perforomist Continue DVT prophylaxis/Lovenox Overall prognosis is extremely poor and guarded Time with Patient: Less than 30
--- NOTE | 2024-06-15 12:22 | P.PN ---
Subjective HISTORY OF PRESENT ILLNESS: This is 58-year-old male with past medical history of hypertension, small cell lung cancer recently diagnosed, SVC syndrome, hypertension, chronic kidney disease. We have been asked to evaluate the patient for NSTEMI. Patient states that he came into the hospital because he was having difficulty breathing which has been gradually worsening. Patient also complains of cough that is nonproductive and wheezing. He quit smoking 1 and half weeks ago. He states he was diagnosed with cancer 1-1/2 weeks ago. He has had 15 pound weight loss over the past month. He denies previous cardiac history and does not follow with a reference librarian. He denies chest pain. He states his oncologist is Dr. Aryan Rodriguez. Blood pressure 151/90, heart rate 104, respiratory rate 38, pulse ox 96% on 4 L nasal cannula. PET scan performed on 05/30/2024 revealed conglomerate mass in the mediastinum with peripheral FDG activity compatible with malignancy. Multiple FDG avid lymph nodes in the mediastinum also present which closely approximate to the large mass. No evidence of metastatic disease below the diaphragm. Pulmonary medicine and oncology are on consult as well as radiology oncology addressing immediate need to treat SVC syndrome. -EKG: Sinus rhythm with nonspecific ST changes. -Chest x-ray: Right perihilar fullness. -Renal ultrasound Limited exam. Prominent prostate. Nonvisualization of the right kidney. -Laboratory studies: WBC 13.4 with repeat 11.8, hemoglobin 9.4, sodium 130, potassium 3.4, BUN 68 and creatinine 1.97. Patient presented with BUN of 71 and creatinine 2.32. Troponin 0.115, 0.148, 0.148. Cepheid viral panel not detected. -Home cardiac medications: Losartan hydrochlorothiazide 50-12.5 mg twice daily. 06/14/2024 Patient examined this morning. Patient is sitting up in the chair. Patient's family is present. Patient currently denies any chest pain or pressure. He does report that his shortness of breath is improving today. Initially there was talk of transfer to tertiary care center. However according to patient's nurse that has been canceled and patient is going to begin chemotherapy here today. Patient remains on 3 L nasal cannula. Telemetry reveals sinus mechanism. Echocardiogram completed revealing ejection fraction 65 to 70%, hyperdynamic left ventricular systolic function, no obvious regional wall motion abnormalities, severe pulmonary hypertension, mild mitral regurgitation, small pericardial effusion 06/15/2024 Patient examined this morning at the bedside. Patient is sitting up in the chair. Patient's family is present. Patient denies chest pain or pressure. He continues to report shortness of breath. Patient states he is unable to stand or lay flat due to his shortness of breath. He did receive chemotherapy yesterday and is scheduled to have chemotherapy again today. PHYSICAL EXAM: VITAL SIGNS: Reviewed. GENERAL: Well-developed in no acute distress. NECK: Supple. Positive JVD. LUNGS: Respirations even and unlabored. Lungs with wheezing and rhonchi noted. HEART: Regular rate and rhythm. S1 and S2 heard. EXTREMITIES: Normal range of motion. No clubbing or cyanosis. Peripheral pulses intact. 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 Repeat in a.m. Continue telemetry monitoring Further recommendations pending patient course Nurse practitioner note has been reviewed by physician. Signing provider agrees with the documented findings, assessment, and plan of care documented by TACK WELDER as a scribe. Objective - Vital Signs Vital signs: Vital Signs Temp 97.4 F L 06/15/24 09:00 Pulse 100 06/15/24 12:10 Resp 18 06/15/24 08:04 BP 161/69 06/15/24 08:04 Pulse Ox 93 L 06/15/24 09:00 FiO2 35 06/14/24 08:18 Intake & Output 06/14/24 06/15/24 06/15/24 18:59 06:59 18:59 Intake Total 20 Output Total 700 800 225 Balance -680 800 -225 Weight 74.9 kg Intake: IV 20 Invasive Line 1 20 Oral 0 Output: Urine 700 800 225 Other: Voiding Method Urinal Urinal Urinal # Voids 2 - Labs CBC & Chem 7: 06/15/24 05:38 06/15/24 05:38 Labs: Abnormal Lab Results - Last 24 Hours (Table) 06/15/24 06/15/24 Range/Units 05:38 05:38 WBC 12.78 H (4.50-10.00) 10*3/uL RBC 3.92 L (4.40-5.60) 10*6/uL Hgb 11.3 L (13.0-17.0) g/dL Hct 34.1 L (39.6-50.0) % MPV 7.7 L (9.5-12.2) fL Immature Gran # 0.16 H (0.00-0.04) 10*3/uL Neutrophils # 11.60 H (1.80-7.70) 10*3/uL Lymphocytes # 0.21 L (0.90-5.00) 10*3/uL Eosinophils # 0.00 L (0.04-0.35) 10*3/uL Sodium 134 L (137-145) mmol/L Carbon Dioxide 21 L (22-30) mmol/L BUN 63 H (9-20) mg/dL Creatinine 1.67 H (0.66-1.25) mg/dL Glucose 116 H (74-99) mg/dL Uric Acid 8.8 H (3.5-8.5) mg/dL AST 80 H (17-59) U/L ALT 129 H (4-49) U/L
[2024-06-15] MEDS: SCOPOLAMINE 1 MG/72 HR PATCH TRANSDERM SCH (16:08)
--- NOTE | 2024-06-15 17:00 | P.PN ---
Subjective Progress Note Date: 06/15/24 No acute events overnight. S/p cycle 1 day 1 of carbo/HOT KNIFE CUTTER. Pt reports he experienced increased MICHELET/chest pressure this morning upon exertion. Breathing labored, SPO2 93% on 3L Objective - Vital Signs Vital signs: Vital Signs Temp 97.4 F L 06/15/24 09:00 Pulse 100 06/15/24 08:51 Resp 18 06/15/24 08:04 BP 161/69 06/15/24 08:04 Pulse Ox 93 L 06/15/24 09:00 FiO2 35 06/14/24 08:18 Intake & Output 06/14/24 06/15/24 06/15/24 18:59 06:59 18:59 Intake Total 20 Output Total 700 800 225 Balance -680 -800 -225 Weight 74.9 kg Intake: IV 20 Invasive Line 1 20 Oral 0 Output: Urine 700 800 225 Other: Voiding Method Urinal Urinal Urinal # Voids 2 - Constitutional General appearance: Present: mild distress - EENT Eyes: Present: anicteric sclerae, EOMI ENT: Present: hearing grossly normal - Respiratory Details: course throughout, breathing is labored - Cardiovascular Details: skin warm and dry - Neurologic Neurologic: Present: CNII-XII intact - Psychiatric Psychiatric: Present: A&O x's 3 - Labs CBC & Chem 7: 06/15/24 05:38 06/15/24 05:38 Labs: Abnormal Lab Results - Last 24 Hours (Table) 06/15/24 06/15/24 Range/Units 05:38 05:38 WBC 12.78 H (4.50-10.00) 10*3/uL RBC 3.92 L (4.40-5.60) 10*6/uL Hgb 11.3 L (13.0-17.0) g/dL Hct 34.1 L (39.6-50.0) % MPV 7.7 L (9.5-12.2) fL Immature Gran # 0.16 H (0.00-0.04) 10*3/uL Neutrophils # 11.60 H (1.80-7.70) 10*3/uL Lymphocytes # 0.21 L (0.90-5.00) 10*3/uL Eosinophils # 0.00 L (0.04-0.35) 10*3/uL Sodium 134 L (137-145) mmol/L Carbon Dioxide 21 L (22-30) mmol/L BUN 63 H (9-20) mg/dL Creatinine 1.67 H (0.66-1.25) mg/dL Glucose 116 H (74-99) mg/dL Uric Acid 8.8 H (3.5-8.5) mg/dL AST 80 H (17-59) U/L ALT 129 H (4-49) U/L Assessment and Plan (1) Acute kidney injury Current Visit: Yes Status: Acute Priority: High Code(s): N17.9 - ACUTE KIDNEY FAILURE, UNSPECIFIED SNOMED Code(s): 12594531 (2) Dehydration Current Visit: Yes Status: Acute Priority: High Code(s): E86.0 - DEHYDRATION SNOMED Code(s): 07264747 (3) Lung cancer Current Visit: Yes Status: Acute Priority: High Code(s): C34.90 - MALIGNANT NEOPLASM OF UNSP PART OF UNSP BRONCHUS OR LUNG SNOMED Code(s): 941801158 (4) NSTEMI (non-ST elevated myocardial infarction) Current Visit: Yes Status: Acute Priority: High Code(s): I21.4 - NON-ST ELEVATION (NSTEMI) MYOCARDIAL INFARCTION SNOMED Code(s): 94033880 (5) Respiratory failure Current Visit: Yes Status: Acute Priority: High Code(s): J96.90 - RESPIRATORY FAILURE, UNSP, UNSP W HYPOXIA OR HYPERCAPNIA SNOMED Code(s): 106201368 Plan: Small cell lung cancer: Patient admitted with acute respiratory failure. He has been having progressing SOB and orthopnea. -Oncology history as dictated in the HPI -Plan was to start treatment soon with Cis/HOT KNIFE CUTTER with concurrent RT, however due to progression of symptoms, outpt treatment was not able to be started -Spoke with Dr. Greene, pt is unable to tolerate laying flat for RT, discussed initiating inpt chemo, as small cell carcinoma is typically very chemo sensitive, with hopes to achieve improvement in breathing status, so patient can also proceed with RT -Chemo orders have been placed. Due to AZRA and elevated trops, will start treatment with Carbo AUC 4 rather than cisplatin. Cisplatin will be considered for subsequent cycles -Continue dexamethasone -Uric acid 8.8 today, allopurinol started -Daily monitoring of labs -S/p cycle 1 day 1 carbo/HOT KNIFE CUTTER, tolerating treatment well -Once breathing status improved will obtain brain MRI to complete staging
--- NOTE | 2024-06-15 20:57 | P.PN ---
Progress Note - Text Progress Note Date: 06/15/24 Chief Complaint: Short of breath Pleasant 58-year-old male, follows with Dr. Heena Nascimento as his PCP. 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 Patient back in 2021. Underwent biopsy of a lung lung mass. 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 Received treatment for a year. May 23, 2024: CT chest: Showed large mediastinal infiltrative mass. Encasement of the surrounding structures. Lymph nodes positive. May 28: Dr. Terrell did a bronchoscopy. Multiple biopsies were done and obstructing tumor was found. More details in his notes. 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 May 30 PET scan was done: That showed mass in the mediastinum. Lymph nodes also positive. No evidence of metastatic disease below the diaphragm. For 3 to 4 days patient been having increasing raspiness in the chest. Short of breath. Dry cough. No phlegm. Decreased appetite. In the last month patient lost about 15 pounds. Sitting up in the recliner audibly rattling in the chest. Patient was due to have a MRI. June 13: This morning Dr. King called me that patient should be transferred to outside facility as our radiation team will not be able to do radiation because of patient's pulmonary status. Patient may need a BiPAP. I did [facility]. Case management was involved. Later got a call from Dr. Mitchell oncology that patient will benefit from chemotherapy as opposed to radiation at this point. Hence chemotherapy is being arranged here. Transfer is being canceled. Earlier today I spoke at length with the patient and his . Patient also having some trouble swallowing. Ensure ordered. Total time spent today about 1 hour 15 minutes with over 40 minutes of discussion. June 14: Up in the chair. Some rattling in the chest. Chemotherapy pharmacist recommended to clogged in his get his chemotherapy drugs. Only eating small amounts. June 15: Up in a recliner. Getting chemotherapy. Still congested in the chest with some rattling. Add scopolamine patch to cut back on secretions. Consult speech to evaluate swallowing. Uric acid 8.8 today. Allopurinol started by oncology. Carboplatin/ORNITHOLOGY TEACHER Active Medications Hydrocodone Bitart/Acetaminophen (Hydrocodone/Apap 7.5-325mg 1 Each Tab) 1 each PO Q6HR PRN PRN Reason: Pain Last Admin: 06/15/24 19:53 Dose: 1 each Albuterol/Ipratropium (Ipratropium-Albuterol 3 Ml Neb) 3 ml INHALATION RT-Q4H [facility] Last Admin: 06/15/24 16:29 Dose: 3 ml Albuterol/Ipratropium (Ipratropium-Albuterol 3 Ml Neb) 3 ml INHALATION RT-Q4H PRN PRN Reason: Dyspnea Allopurinol (Allopurinol 300 Mg Tab) 300 mg PO DAILY@1999 [facility] Last Admin: 06/15/24 19:42 Dose: 300 mg Alprazolam (Alprazolam 0.5 Mg Tab) 0.5 mg PO Q12HR PRN PRN Reason: Anxiety Last Admin: 06/15/24 10:27 Dose: 0.5 mg Amlodipine Besylate (Amlodipine 5 Mg Tab) 5 mg PO DAILY [facility] Last Admin: 06/15/24 10:25 Dose: 5 mg Budesonide (Budesonide 1 Mg/2 Ml Nebu) 1 mg INHALATION RT-BID [facility] Last Admin: 06/15/24 08:28 Dose: 1 mg Bupropion HCl (Bupropion Xl 150 Mg Tab.Er.24h) 150 mg PO DAILY [facility] Last Admin: 06/15/24 10:25 Dose: 150 mg Clonidine (Clonidine Hcl 0.2 Mg Tab) 0.2 mg PO BID [facility] Last Admin: 06/15/24 19:43 Dose: 0.2 mg Dexamethasone Sodium Phosphate (Dexamethasone Sod Phosphate 10 Mg/Ml 1 Ml Vial) 6 mg IVP Q6H [facility] Last Admin: 06/15/24 19:43 Dose: 6 mg Docusate Sodium (Docusate 100 Mg Cap) 100 mg PO BID PRN PRN Reason: Constipation Last Admin: 06/15/24 10:28 Dose: 100 mg Enoxaparin Sodium (Enoxaparin 40 Mg/0.4 Ml Syringe) 40 mg SQ DAILY [facility] Last Admin: 06/15/24 10:32 Dose: 40 mg Famotidine (Famotidine 20 Mg/2 Ml Vial) 20 mg IVP Q24H [facility] Stop: 06/16/24 14:01 Last Admin: 06/15/24 14:00 Dose: 20 mg Ondansetron HCl 16 mg/ Sodium (Chloride) 58 mls @ 232 mls/hr IVPB Q24H [facility] Stop: 06/16/24 14:14 Last Admin: 06/15/24 14:01 Dose: 232 mls/hr Etoposide 190 mg/ Sodium (Chloride) 509.5 mls @ 509.5 mls/hr IV Q24H [facility] Stop: 06/16/24 16:59 Last Admin: 06/15/24 15:55 Dose: 509.5 mls/hr Loperamide HCl (Loperamide 2 Mg Cap) 2 mg PO QID PRN PRN Reason: Diarrhea Naloxone HCl (Naloxone 0.4 Mg/Ml 1 Ml Vial) 0.2 mg IV Q2M PRN PRN Reason: Opioid Reversal Ondansetron HCl (Ondansetron 4 Mg/2 Ml Vial) 4 mg IVP Q6HR PRN PRN Reason: Nausea And Vomiting Pantoprazole Sodium (Pantoprazole 40 Mg Tablet) 40 mg PO DAILY [facility] Last Admin: 06/15/24 10:21 Dose: 40 mg Scopolamine (Scopolamine 1 Mg/72 Hr Patch) 1 patch TRANSDERM Q72H [facility] Last Admin: 06/15/24 16:08 Dose: 1 patch Sodium Bicarbonate (Salt And Soda Mouthwash 1,000 Ml) 5 ml PO 5XD [facility] Last Admin: 06/15/24 19:49 Dose: 5 ml Social history: Alcohol occasionally. . Stopped smoking a year and a half ago. Used to work with a [employer]. On examination: VITAL SIGNS: 97.4, 100, 18, 153/87, 92% 3 to GENERAL APPEARANCE: Up in a recliner. Coughing. Audible rattling in the chest HEENT: Normal external appearance of nose and ear. Oral cavity normal. EYES: Pupils equal. Conjunctiva normal. NECK: All neck veins are prominent in standing out RESPIRATORY: Respiratory effort increased, some wheezing. Audible rattling in the chest CARDIOVASCULAR: First and second sounds normal. No edema. ABDOMEN: Soft. Liver and spleen not palpable. No tenderness. No mass palpable. PSYCHIATRY: Alert and oriented x3. Mood and affect anxious INVESTIGATIONS, reviewed in the clinical context: June 15: White count 12.7 hemoglobin 9.3 platelets 328 sodium 134 potassium 3.9. 63 creatinine 1.67 AST 80 ALT 129 uric acid 8.8 June 14: White count 10.4 hemoglobin 10.7 sodium 131 potassium 3.9 BUN 70 creatinine 1.78 2D echo: EF 65 to 70%. Hyperdynamic left ventricular systolic function. Severe pulmonary hypertension. Renal ultrasound: Nonspecific June 13: White count 11.8 hemoglobin 11.4 platelets 285 sodium 130 potassium 3.4 BUN 68 creatinine 1.97 procalcitonin 0.33 Chest x-ray film personally reviewed by me-right hilar mass. Left upper lobe mass. EKG tracing personally reviewed by me-sinus tachycardia. Nonspecific ST-T wave changes. June 12: White count 13.4 hemoglobin 11.6 platelets 290 sodium 128 potassium 4 BUN 31 creatinine 2.32 Troponin I 0.115, 0.148 Influenza type B, type B, RSV, SARS-CoV-2: Not detected Recent testing May 23, 2024: CT chest: Showed large mediastinal infiltrative mass. Encasement of the surrounding structures. Lymph nodes positive. May 28: Dr. Terrell did a bronchoscopy. Multiple biopsies were done and obstructing tumor was found. More details in his notes. 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 May 30 PET scan was done: That showed mass in the mediastinum. Lymph nodes also positive. No evidence of metastatic disease below the diaphragm. 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 Mitchell from oncology. Chemotherapy: Carboplatin, etoposide. Day 2 -Small cell lung cancer. No metastatic disease. Not beyond the diaphragm. Follows with Dr. COOPER pulmonary. Chemotherapy day 2 today. Carboplatin, etoposide. Oncology following - Hyperuricemia from chemotherapy Allopurinol added - Acute hypoxic respiratory failure secondary to COPD exacerbation/lung cancer. Patient having trouble clearing secretions.: Slow to respond Requiring BiPAP - Increase tracheobronchial secretions from underlying malignancy. Patient not able to expectorate Add scopolamine patch - Dysphagia secondary to underlying malignancy/SVC Consult speech. -Acute COPD exacerbation in a previous smoker: Slow to respond DuoNeb 4. Nebulized Pulmicort. IV Decadron l -Kidney injury. Unknown acute versus chronic. UA: Trace protein. Renal ultrasound: Unremarkable. IV fluids. Repeat lab - Positive troponin. Clinical picture not compatible with ACS. Especially in the setting of renal failure. 2D echo no wall motion abnormality. Telemetry. -Essential hypertension, Hyzaar/HCTZ discontinued. Catapres 0.2 twice daily -Normocytic anemia likely from underlying malignancy -Hyponatremia, likely hypovolemic given decreased oral intake: Some improvement Repeat labs and serum osmolality -Full code Getting chemotherapy. Follow labs. Allopurinol added. Scopolamine patch. Past Medical History Past Medical History: Hypertension, Osteoarthritis (OA), Renal Disease Additional Past Medical History / Comment(s): chronic kidney disease stage 3, lung infection Mycobacterium [place], lung cancer History of Any Multi-Drug Resistant Organisms: None Reported Past Surgical History: No Surgical Hx Reported Additional Past Surgical History / Comment(s): Lt. THR 2022, bronchosopies, Lt. lung biopsy x 2 Past Anesthesia/Blood Transfusion Reactions: No Reported Reaction Past Psychological History: No Psychological Hx Reported Smoking Status: Current every day smoker
[2024-06-16 06:03] LABS: Basophils # (A) 0.02 10*3/uL (0.00-0.10); Basophils % (A) 0.1 %; HCT 35.4 % (39.6-50.0); HGB 11.3 g/dL (13.0-17.0); Lymphocytes # (A) 0.28 10*3/uL (0.90-5.00); Lymphocytes % (A) 1.6 %; MCH 28.8 pg (27.0-32.0); MCHC 31.9 g/dL (32.0-37.0); MCV 90.1 fL (80.0-97.0); Mean Platelet Volume 7.6 fL (9.5-12.2); Monocytes # (A) 1.15 10*3/uL (0.20-1.00); Monocytes % (A) 6.4 %; Neutrophils # (A) 16.42 10*3/uL (1.80-7.70); Platelet Count 370 10*3/uL (140-440); RBC 3.93 10*6/uL (4.40-5.60); RDW 14.6 % (11.5-14.5); WBC 18.04 10*3/uL (4.50-10.00)
[2024-06-16 06:31] LABS: ALT 129 U/L (4-49); AST 68 U/L (17-59); African American GFR (CKD) 46 (>60 ml/min/1.73 sqM); Albumin 4.4 g/dL (3.5-5.0); Alkaline Phosphatase 82 U/L (38-126); Anion Gap 15 mmol/L; Blood Urea Nitrogen 69 mg/dL (9-20); Calcium 10.1 mg/dL (8.4-10.2); Carbon Dioxide 21 mmol/L (22-30); Chloride 99 mmol/L (98-107); Glucose 136 mg/dL (74-99); Non-African American GFR(CKD) 40 (>60 ml/min/1.73 sqM); Potassium 4.1 mmol/L (3.5-5.1); Sodium 135 mmol/L (137-145); Total Bilirubin 0.5 mg/dL (0.2-1.3); Total Protein 7.5 g/dL (6.3-8.2); Uric Acid 7.8 mg/dL (3.5-8.5)
[2024-06-16 09:35] LABS: Glucose,Whole Blood 135 mg/dL (70-110)
--- NOTE | 2024-06-16 09:39 | XR ---
EXAMINATION TYPE: XR chest 1V portable DATE OF EXAM: 06/16/2024 9:31 AM COMPARISON: Chest radiographs from 06/15/2024, PET/CT 05/30/2024 TECHNIQUE: XR chest 1V portable Portable AP radiograph of the chest. CLINICAL INDICATION:Male, 58 years old with history of worsening SOB; FINDINGS: Lungs/Pleura: No pleural effusion or pneumothorax. No focal consolidation. Redemonstration of left up per lobe 3.6 x 2.6 cm pulmonary mass. Chronic elevation of the right hemidiaphragm. Pulmonary vascularity: Unremarkable. Heart/mediastinum: The heart is not enlarged. Right perihilar soft tissue prominence related to known mediastinal mass. Musculoskeletal: No acute osseous pathology. IMPRESSION: Redemonstration of right hilar prominence related to known mediastinal mass. Similar left upper lobe pulmonary mass. No new focal consolidation. [facility], , 06/16/2024 9:36 AM
[2024-06-16 09:42] LABS: ABG Base Excess -5.8 mmol/L; ABG HCO3 21 mmol/L (21-25); ABG Oxygen Saturation 91.1 % (94-97); ABG PCO2 45 mmHg (35-45); ABG PH 7.28 (7.35-7.45); ABG PO2 65 mmHg (83-108); ABG TCO2 22 mmol/L (19-24); Allen Test Performed? Yes
[2024-06-16] MEDS: SODIUM CHLORIDE 0.9% 1,000 ML IV SCH (11:20)
[2024-06-16] MEDS: LACTATED RINGERS 1,000 ML IV SCH (11:21)
--- NOTE | 2024-06-16 13:25 | P.PN ---
Subjective Progress Note Date: 06/16/24 Principal diagnosis: Small cell lung cancer. This is a pleasant 58-year-old male patient with a history of chronic kidney disease, hypertension, chronic tobacco dependence however quit 1-1/2 years ago, chronic obstructive pulmonary disease, Mycobacterium kansasii infection diagn osed back in 2021 and treated with INH, rifampin and ethambutol. He was last seen by Dr. Kaplan in February 2023. More recently in May 2024 the patient had been diagnosed with pneumonia and treated by his PCP without much improvement. He had seen Dr. Daly again in follow-up. CT scan of the chest was performed and a right perihilar mass and a left upper lobe lesion. Bronchoscopy and biopsies were performed on May 28, 2024 that were positive for small cell carcinoma. There was tumor at the main caro and tumor obstructing the right upper lobe. He was recently seen by Dr. Aryan Rodriguez and Dr. Greene for chemotherapy and radiation plans however the patient has been unable to lay flat for radiation. He has been unable to lay flat for an MRI of the brain. He presented here to the emergency room yesterday with worsening shortness of breath, cough and congestion. Chest x-ray continues to show right perihilar fullness and a left upper lung consolidation. White count 11.8. Hemoglobin 11.4. Platelets 285. Sodium 130. Potassium 3.4. Bicarb 21. BUN 68. Creatinine 1.97. Troponin 0.115, 0.148, 0.148. Urinalysis clean. Viral screen negative. He is seen today in consultation in the emergency department. He is currently sitting up in a chair. He is in mild respiratory distress. He has a loose congested cough. He has distended neck veins. slight increase edema of the right arm and concerns regarding superior vena cava syndrome. Patient was seen today on 06/14/2024, patient is basically about the same, slightly better compared to yesterday, he is yet to be started on chemotherapy, continues to have cough wheezing shortness of breath, still cannot lay flat. Patient is on bronchodilators, antibiotics, and steroids, being followed by now by oncology. Patient could not be seen by radiation oncology because he could not lay flat, and could not be started on radiation therapy for his SVC. WBC 10.4 hemoglobin 10.7 electrolytes are normal BUN is 70 creatinine 1.78, patient is being followed by nephrology. Patient remains on Decadron, remains on bronchodilators for his underlying COPD and for his SVC syndrome. Patient was seen today on 06/15/2024, patient is basically about the same today, continues to have cough wheezing shortness of breath, breathing remains labored, O2 saturation 99% on 3 L nasal cannula patient has been started on chemotherapy including carboplatin and etoposide. WBC count today is 12.7 hemoglobin 11.3 electrolytes are normal BUN is 63 creatinine 1.67. Progress note dated June 16, 2024. 58-year-old male with a recent diagnosis of small cell lung cancer. The patient developed worsening respiratory status, and was transferred down to the intensive care unit. The plan is to try to get the patient to [facility] if possible. He did receive chemotherapy, on Sunday, and Sunday. Today, he is worse. I did speak to the primary service, and also spoke to the medical oncologist. He is currently on Airvo, 60 L/min, with an FiO2 of 60%. He is not receiving any IV fluids although I asked the nurse to start LR at 75 cc an hour. White count was 18, hemoglobin 11.3, hematocrit 35.4, platelet count 370,000. Blood gases show pO2 of 65, pCO2 of 45, pH is 7.28. That was on 80% FiO2. Sodium 135, potassium 4.1, chloride 99, CO2 21, anion gap 15, BUN 69, and creatinine 1.81. Glucose is 135. Uric acid is 8.2. Albumin is 4.4. AST is 68, ALT is 129. Chest x-ray again shows right hilar prominence, which is the patient's known mediastinal mass, and small cell lung cancer. Objective - Vital Signs Vital signs: Vital Signs Temp 98.4 F 06/16/24 12:00 Pulse 92 06/16/24 13:00 Resp 15 06/16/24 13:00 BP 126/83 06/16/24 13:00 Pulse Ox 92 L 06/16/24 13:00 FiO2 70 06/16/24 13:00 Intake & Output 06/15/24 06/16/24 06/16/24 18:59 06:59 18:59 Intake Total 735 40 115 Output Total 225 575 400 Balance 920 -293 -649 Intake: IV 15 40 115 Invasive Line 1 5 Invasive Line 2 10 40 Lactated Ringers 1,000 ml 115 @ 75 mls/hr IV .[id number] [facility] Rx#:[id number] Oral 720 Output: Urine 225 575 400 Other: Voiding Method Urinal Urinal Urinal # Voids 1 1 - Exam Mild to moderate respiratory distress, somewhat lethargic, answers questions appropriately, currently on Airvo. HEENT examination is grossly unremarkable. Mucous membranes are moist. No oral lesions. Neck supple. Full range of motion. No adenopathy or thyromegaly. Neck veins are distended. Cardiovascular examination reveals regular rhythm rate. S1-S2 normal. No S3 or S4. No discernible murmur noted. Lungs reveal wet, congested, rhonchi, without wheezes, or crackles. Breath sounds are equal bilaterally. His cough is wet and congested. Abdomen soft bowel sounds are heard. No masses or tenderness. Extremities are intact. No cyanosis clubbing or edema. Skin is without rash or lesion. Neurologic examination is brief but nonfocal. - Labs CBC & Chem 7: 06/16/24 05:23 06/16/24 05:23 Labs: Abnormal Lab Results - Last 24 Hours (Table) 06/16/24 06/16/24 06/16/24 Range/Units 05:23 05:23 09:33 WBC 18.04 H (4.50-10.00) 10*3/uL RBC 3.93 L (4.40-5.60) 10*6/uL Hgb 11.3 L (13.0-17.0) g/dL Hct 35.4 L (39.6-50.0) % MCHC 31.9 L (32.0-37.0) g/dL MPV 7.6 L (9.5-12.2) fL Immature Gran # 0.17 H (0.00-0.04) 10*3/uL Neutrophils # 16.42 H (1.80-7.70) 10*3/uL Lymphocytes # 0.28 L (0.90-5.00) 10*3/uL Monocytes # 1.15 H (0.20-1.00) 10*3/uL Eosinophils # 0.00 L (0.04-0.35) 10*3/uL ABG pH (7.35-7.45) ABG pO2 (83-108) mmHg ABG O2 Saturation (94-97) % Hemoglobin (13.0-17.5) gm/dL Sodium 135 L (137-145) mmol/L Carbon Dioxide 21 L (22-30) mmol/L BUN 69 H (9-20) mg/dL Creatinine 1.81 H (0.66-1.25) mg/dL Glucose 136 H (74-99) mg/dL POC Glucose (mg/dL) 135 H (70-110) mg/dL AST 68 H (17-59) U/L ALT 129 H (4-49) U/L 06/16/24 Range/Units 09:38 WBC (4.50-10.00) 10*3/uL RBC (4.40-5.60) 10*6/uL Hgb (13.0-17.0) g/dL Hct (39.6-50.0) % MCHC (32.0-37.0) g/dL MPV (9.5-12.2) fL Immature Gran # (0.00-0.04) 10*3/uL Neutrophils # (1.80-7.70) 10*3/uL Lymphocytes # (0.90-5.00) 10*3/uL Monocytes # (0.20-1.00) 10*3/uL Eosinophils # (0.04-0.35) 10*3/uL ABG pH 7.28 L (7.35-7.45) ABG pO2 65 L (83-108) mmHg ABG O2 Saturation 91.1 L (94-97) % Hemoglobin 11.0 L (13.0-17.5) gm/dL Sodium (137-145) mmol/L Carbon Dioxide (22-30) mmol/L BUN (9-20) mg/dL Creatinine (0.66-1.25) mg/dL Glucose (74-99) mg/dL POC Glucose (mg/dL) (70-110) mg/dL AST (17-59) U/L ALT (4-49) U/L Assessment and Plan Assessment: Acute hypoxemic respiratory failure, secondary to small cell lung cancer, bulky tumor within the airways, COPD exacerbation, and superior vena cava syndrome. Recent diagnosis of small cell lung cancer, S/P induction chemotherapy. Superior vena cava syndrome. Chronic obstructive pulmonary disease. Previous heavy smoker. History of Mycobacterium kansasii lung infection, treated with INH, rifampin, and ethambutol. Acute on chronic kidney disease. Benign essential hypertension. Gastroesophageal reflux disease. Plan: Plan dated June 16, 2024. The patient developed worsening respiratory status, up on the floor, and was transferred down to the intensive care unit, room 259. The patient is currently on Airvo, at 60 L/min, with an FiO2 of 60%. We are attempting to transfer the patient down to [facility]. The patient did receive induction chemotherapy, on Sunday and Sunday. Labs, x-rays, medications are all reviewed. I did have a conversation with the about CODE STATUS. For the time being, the patient remains a full code. They are also in agreement, to be transferred down to [facility]. I spoke to the medical oncologist, and the primary service as well. Time with Patient: Greater than 30
[2024-06-16] MEDS: LORazepam 2 MG/ML INJ IV PRN ×3 (15:26→19:47)
[2024-06-16 16:02] VITALS: TEMP 98.9
--- NOTE | 2024-06-16 16:11 | P.PN ---
Subjective HISTORY OF PRESENT ILLNESS: This is 58-year-old male with past medical history of hypertension, small cell lung cancer recently diagnosed, SVC syndrome, hypertension, chronic kidney disease. We have been asked to evaluate the patient for NSTEMI. Patient states that he came into the hospital because he was having difficulty breathing which has been gradually worsening. Patient also complains of cough that is nonproductive and wheezing. He quit smoking 1 and half weeks ago. He states he was diagnosed with cancer 1-1/2 weeks ago. He has had 15 pound weight loss over the past month. He denies previous cardiac history and does not follow with a power lineman technician. He denies chest pain. He states his oncologist is Dr. Aryan Rodriguez. Blood pressure 151/90, heart rate 104, respiratory rate 38, pulse ox 96% on 4 L nasal cannula. PET scan performed on 05/30/2024 revealed conglomerate mass in the mediastinum with peripheral FDG activity compatible with malignancy. Multiple FDG avid lymph nodes in the mediastinum also present which closely approximate to the large mass. No evidence of metastatic disease below the diaphragm. Pulmonary medicine and oncology are on consult as well as radiology oncology addressing immediate need to treat SVC syndrome. -EKG: Sinus rhythm with nonspecific ST changes. -Chest x-ray: Right perihilar fullness. -Renal ultrasound Limited exam. Prominent prostate. Nonvisualization of the right kidney. -Laboratory studies: WBC 13.4 with repeat 11.8, hemoglobin 9.4, sodium 130, potassium 3.4, BUN 68 and creatinine 1.97. Patient presented with BUN of 71 and creatinine 2.32. Troponin 0.115, 0.148, 0.148. Cepheid viral panel not detected. -Home cardiac medications: Losartan hydrochlorothiazide 50-12.5 mg twice daily. 06/14/2024 Patient examined this morning. Patient is sitting up in the chair. Patient's family is present. Patient currently denies any chest pain or pressure. He does report that his shortness of breath is improving today. Initially there was talk of transfer to tertiary care center. However according to patient's nurse that has been canceled and patient is going to begin chemotherapy here today. Patient remains on 3 L nasal cannula. Telemetry reveals sinus mechanism. Echocardiogram completed revealing ejection fraction 65 to 70%, hyperdynamic left ventricular systolic function, no obvious regional wall motion abnormalities, severe pulmonary hypertension, mild mitral regurgitation, small pericardial effusion 06/15/2024 Patient examined this morning at the bedside. Patient is sitting up in the chair. Patient's family is present. Patient denies chest pain or pressure. He continues to report shortness of breath. Patient states he is unable to stand or lay flat due to his shortness of breath. He did receive chemotherapy yesterday and is scheduled to have chemotherapy again today. 06/16 Patient seen and examined. Patient somewhat confused however answering some questions appropriately. A team was called this morning secondary to increasing respiratory distress and patient placed on high flow and transferred to ICU. No significant improvement today and therefore decision made for transfer to tertiary center and awaiting bed. Some discussion regarding possible radiation for his SVC syndrome. Still gets significant dyspnea with lying flat. PHYSICAL EXAM: VITAL SIGNS: Reviewed. GENERAL: Well-developed in no acute distress. NECK: Supple. Positive JVD. LUNGS: Respirations even and unlabored. Lungs with wheezing and rhonchi noted. HEART: Regular rate and rhythm. S1 and S2 heard. EXTREMITIES: Normal range of motion. No clubbing or cyanosis. Peripheral pulses intact. 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 Much of symptoms appear related to compression from mass on both the SVC as well as his lung/ bronchi. Agree with transfer to tertiary center. Prognosis guarded. Objective - Vital Signs Vital signs: Vital Signs Temp 98.9 F 06/16/24 16:00 Pulse 100 06/16/24 16:00 Resp 15 06/16/24 16:00 BP 150/96 06/16/24 16:00 Pulse Ox 92 L 06/16/24 16:00 FiO2 70 06/16/24 16:00 Intake & Output 06/15/24 06/16/24 06/16/24 18:59 06:59 18:59 Intake Total 735 40 625 Output Total 225 575 600 Balance 510 -535 25 Intake: IV 15 40 625 Etoposide 190 mg In 500 Sodium Chloride 0.9% 500 ml 500 ml @ 509.5 mls/hr IV Q24H [facility] Rx#:[id number] Invasive Line 1 5 Invasive Line 2 10 40 Lactated Ringers 1,000 ml 125 @ 75 mls/hr IV .[id number] [facility] Rx#:[id number] Oral 720 Output: Urine 225 575 600 Other: Voiding Method Urinal Urinal Urinal # Voids 1 1 - Labs CBC & Chem 7: 06/16/24 05:23 06/16/24 05:23 Labs: Abnormal Lab Results - Last 24 Hours (Table) 06/16/24 06/16/24 06/16/24 Range/Units 05:23 05:23 09:33 WBC 18.04 H (4.50-10.00) 10*3/uL RBC 3.93 L (4.40-5.60) 10*6/uL Hgb 11.3 L (13.0-17.0) g/dL Hct 35.4 L (39.6-50.0) % MCHC 31.9 L (32.0-37.0) g/dL MPV 7.6 L (9.5-12.2) fL Immature Gran # 0.17 H (0.00-0.04) 10*3/uL Neutrophils # 16.42 H (1.80-7.70) 10*3/uL Lymphocytes # 0.28 L (0.90-5.00) 10*3/uL Monocytes # 1.15 H (0.20-1.00) 10*3/uL Eosinophils # 0.00 L (0.04-0.35) 10*3/uL ABG pH (7.35-7.45) ABG pO2 (83-108) mmHg ABG O2 Saturation (94-97) % Hemoglobin (13.0-17.5) gm/dL Sodium 135 L (137-145) mmol/L Carbon Dioxide 21 L (22-30) mmol/L BUN 69 H (9-20) mg/dL Creatinine 1.81 H (0.66-1.25) mg/dL Glucose 136 H (74-99) mg/dL POC Glucose (mg/dL) 135 H (70-110) mg/dL AST 68 H (17-59) U/L ALT 129 H (4-49) U/L 06/16/24 Range/Units 09:38 WBC (4.50-10.00) 10*3/uL RBC (4.40-5.60) 10*6/uL Hgb (13.0-17.0) g/dL Hct (39.6-50.0) % MCHC (32.0-37.0) g/dL MPV (9.5-12.2) fL Immature Gran # (0.00-0.04) 10*3/uL Neutrophils # (1.80-7.70) 10*3/uL Lymphocytes # (0.90-5.00) 10*3/uL Monocytes # (0.20-1.00) 10*3/uL Eosinophils # (0.04-0.35) 10*3/uL ABG pH 7.28 L (7.35-7.45) ABG pO2 65 L (83-108) mmHg ABG O2 Saturation 91.1 L (94-97) % Hemoglobin 11.0 L (13.0-17.5) gm/dL Sodium (137-145) mmol/L Carbon Dioxide (22-30) mmol/L BUN (9-20) mg/dL Creatinine (0.66-1.25) mg/dL Glucose (74-99) mg/dL POC Glucose (mg/dL) (70-110) mg/dL AST (17-59) U/L ALT (4-49) U/L
[2024-06-16 16:54] LABS: ABG Base Excess -5.1 mmol/L; ABG HCO3 21 mmol/L (21-25); ABG Oxygen Saturation 93.9 % (94-97); ABG PCO2 42 mmHg (35-45); ABG PH 7.31 (7.35-7.45); ABG PO2 73 mmHg (83-108); ABG TCO2 22 mmol/L (19-24); Allen Test Performed? Yes
[2024-06-16] MEDS ORDERED: DRY MOUTH SPRAY 59 SPRAY/59 ML SPRAY MUCOUS MEM PRN (19:57)
[2024-06-16] MEDS ORDERED: GLYCOPYRROLATE 0.2 MG/ML 2 ML VIAL IVP PRN (19:57)
[2024-06-16] MEDS ORDERED: ATROPINE OPHTH SOLN 1% 5ML BTL SUBLINGUAL PRN (19:57)
[2024-06-16 20:10] VITALS: BP 150/104; PULSE 98; RESP 29
[2024-06-16] MEDS: MORPHINE SULFATE 4 MG/ML SYRINGE IVP PRN (20:17)
--- NOTE | 2024-06-16 20:23 | P.PN ---
Progress Note - Text Progress Note Date: 06/16/24 Chief Complaint: Short of breath Pleasant 58-year-old male, follows with Dr. Heena Nascimento as his PCP. Dr. COOPER his development executive.. Patient back in 2021. Underwent biopsy of a lung lung mass. 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 Received treatment for a year. May 23, 2024: CT chest: Showed large mediastinal infiltrative mass. Encasement of the surrounding structures. Lymph nodes positive. May 28: Dr. Terrell did a bronchoscopy. Multiple biopsies were done and obstructing tumor was found. More details in his notes. 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 May 30 PET scan was done: That showed mass in the mediastinum. Lymph nodes also positive. No evidence of metastatic disease below the diaphragm. For 3 to 4 days patient been having increasing raspiness in the chest. Short of breath. Dry cough. No phlegm. Decreased appetite. In the last month patient lost about 15 pounds. Sitting up in the recliner audibly rattling in the chest. Patient was due to have a MRI. June 13: This morning Dr. King called me that patient should be transferred to outside facility as our radiation team will not be able to do radiation because of patient's pulmonary status. Patient may need a BiPAP. [facility] Case management was involved. Later got a call from Dr. Mitchell oncology that patient will benefit from chemotherapy as opposed to radiation at this point. Hence chemotherapy is being arranged here. Transfer is being canceled. Earlier today I spoke at length with the patient and his . Patient also having some trouble swallowing. Ensure ordered. Total time spent today about 1 hour 15 minutes with over 40 minutes of discussion. June 14: Up in the chair. Some rattling in the chest. Chemotherapy pharmacist recommended to clogged in his get his chemotherapy drugs. Only eating small amounts. June 15: Up in a recliner. Getting chemotherapy. Still congested in the chest with some rattling. Add scopolamine patch to cut back on secretions. Consult speech to evaluate swallowing. Uric acid 8.8 today. Allopurinol started by oncology. Carboplatin/BRUSHER TENDER June 16: Patient in the ICU. For worsening respiratory status. Patient on A irvo 60/60. Dr. COOPER meteorology faculty member called about transfer to [facility]. I asked him to discuss with Dr. Rodriguez patient's oncologist. I did spoke to Dr. Rodriguez and he felt patient may benefit from endobronchial possible lesion treatment. I spoke to the MICU fellow at [facility] -gave report. Patient was accepted. No beds were available. I also spoke at length with the patient his and stepdaughter at the bedside. I did explain the prognosis very guarded. Time spent today about 50 minutes with over 35 minutes of discussion Active Medications Hydrocodone Bitart/Acetaminophen (Hydrocodone/Apap 7.5-325mg 1 Each Tab) 1 each PO Q6HR PRN PRN Reason: Pain Last Admin: 06/15/24 19:53 Dose: 1 each Albuterol/Ipratropium (Ipratropium-Albuterol 3 Ml Neb) 3 ml INHALATION RT-Q4H [facility] Last Admin: 06/16/24 16:05 Dose: 3 ml Albuterol/Ipratropium (Ipratropium-Albuterol 3 Ml Neb) 3 ml INHALATION RT-Q4H PRN PRN Reason: Dyspnea Alprazolam (Alprazolam 0.5 Mg Tab) 0.5 mg PO Q12HR PRN PRN Reason: Anxiety Last Admin: 06/16/24 07:40 Dose: 0.5 mg Atropine Sulfate (Atropine Ophth Soln 1% 5ml Btl) 2 drops SUBLINGUAL Q4HR PRN PRN Reason: Excess Secretions Budesonide (Budesonide 1 Mg/2 Ml Nebu) 1 mg INHALATION RT-BID [facility] Last Admin: 06/16/24 07:50 Dose: 1 mg Docusate Sodium (Docusate 100 Mg Cap) 100 mg PO BID PRN PRN Reason: Constipation Last Admin: 06/15/24 10:28 Dose: 100 mg Glycopyrrolate (Glycopyrrolate 0.2 Mg/Ml 2 Ml Vial) 0.1 mg IVP Q6HR PRN PRN Reason: Excess Secretions Morphine Sulfate 100 mg/ (Sodium Chloride) 100 mls @ 2 mls/hr IV .Q24H [facility]; Protocol Loperamide HCl (Loperamide 2 Mg Cap) 2 mg PO QID PRN PRN Reason: Diarrhea Lorazepam (Lorazepam 2 Mg/Ml Inj) 0.5 mg IV Q4HR PRN PRN Reason: Mild Anxiety Last Admin: 06/16/24 18:22 Dose: 0.5 mg Lorazepam (Lorazepam 2 Mg/Ml Inj) 1 mg IV Q4HR PRN PRN Reason: Moderate Anxiety Last Admin: 06/16/24 19:47 Dose: 1 mg Morphine Sulfate (Morphine Sulfate 4 Mg/Ml Syringe) 4 mg IVP Q1HR PRN PRN Reason: See Label Comments Last Admin: 06/16/24 20:17 Dose: 4 mg Naloxone HCl (Naloxone 0.4 Mg/Ml 1 Ml Vial) 0.2 mg IV Q2M PRN PRN Reason: Opioid Reversal Ondansetron HCl (Ondansetron 4 Mg/2 Ml Vial) 4 mg IVP Q6HR PRN PRN Reason: Nausea And Vomiting Saliva Substitute (Dry Mouth [place] 59 [place]mont/59 Ml [place]) 1 spray MUCOUS MEM QID PRN PRN Reason: Dry Mouth Scopolamine (Scopolamine 1 Mg/72 Hr Patch) 1 patch TRANSDERM Q72H [facility] Last Admin: 06/15/24 16:08 Dose: 1 patch Social history: Alcohol occasionally. . Stopped smoking a year and a half ago. Used to work with a [employer]. On examination: VITAL SIGNS: 98.9, 100, 1 5196, 92% on Airvo 60/70 GENERAL APPEARANCE: Sitting up in bed, short of breath, awake HEENT: Normal external appearance of nose and ear. Oral cavity normal. EYES: Pupils equal. Conjunctiva normal. NECK: All neck veins are prominent in standing out RESPIRATORY: Respiratory effort increased, some wheezing. Audible rattling in the chest CARDIOVASCULAR: First and second sounds normal. No edema. ABDOMEN: Soft. Liver and spleen not palpable. No tenderness. No mass palpable. PSYCHIATRY: Awake, understands following commands INVESTIGATIONS, reviewed in the clinical context: June 16: White count 18 hemoglobin 11.3 platelets 370 potassium 4.1 BUN 69 creatinine 1.81 June 15: White count 12.7 hemoglobin 9.3 platelets 328 sodium 134 potassium 3.9. 63 creatinine 1.67 AST 80 ALT 129 uric acid 8.8 June 14: White count 10.4 hemoglobin 10.7 sodium 131 potassium 3.9 BUN 70 creatinine 1.78 2D echo: EF 65 to 70%. Hyperdynamic left ventricular systolic function. Severe pulmonary hypertension. Renal ultrasound: Nonspecific June 13: White count 11.8 hemoglobin 11.4 platelets 285 sodium 130 potassium 3.4 BUN 68 creatinine 1.97 procalcitonin 0.33 Chest x-ray film personally reviewed by me-right hilar mass. Left upper lobe mass. EKG tracing personally reviewed by me-sinus tachycardia. Nonspecific ST-T wave changes. June 12: White count 13.4 hemoglobin 11.6 platelets 290 sodium 128 potassium 4 BUN 31 creatinine 2.32 Troponin I 0.115, 0.148 Influenza type B, type B, RSV, SARS-CoV-2: Not detected Recent testing May 23, 2024: CT chest: Showed large mediastinal infiltrative mass. Encasement of the surrounding structures. Lymph nodes positive. May 28: Dr. Terrell did a bronchoscopy. Multiple biopsies were done and obstructing tumor was found. More details in his notes. 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 May 30 PET scan was done: That showed mass in the mediastinum. Lymph nodes also positive. No evidence of metastatic disease below the diaphragm. Assessment and plan: - Superior vena caval syndrome secondary to lung malignancy.: Not improving Being followed by oncology team Chemotherapy: Carboplatin, etoposide. Received 2 days of chemotherapy Today per Dr. Phillips from oncology patient may benefit from radiation down to [facility] -Small cell lung cancer. No metastatic disease. Not beyond the diaphragm. Follows with Dr. COOPER pulmonary. Chemotherapy day 2 received carboplatin, etoposide. Oncology following - Hyperuricemia from chemotherapy Allopurinol added - Acute hypoxic respiratory failure secondary to COPD exacerbation/lung cancer. Patient having trouble clearing secretions.: Worsening Airvo - Increase tracheobronchial secretions from underlying malignancy. Patient not able to expectorate scopolamine patch - Dysphagia secondary to underlying malignancy/SVC Consult speech. -Acute COPD exacerbation in a previous smoker: Not improving DuoNeb 4. Nebulized Pulmicort. IV Decadron l -Kidney injury. Unknown acute versus chronic. UA: Trace protein. Renal ultrasound: Unremarkable. IV fluids. Repeat lab - Positive troponin. Clinical picture not compatible with ACS. Especially in the setting of renal failure. 2D echo no wall motion abnormality. Telemetry. -Essential hypertension, Hyzaar/HCTZ discontinued. Catapres 0.2 twice daily -Normocytic anemia likely from underlying malignancy -Hyponatremia, likely hypovolemic given decreased oral intake: Improvement Repeat labs and serum osmolality -Full code Received chemotherapy. Per Dr. COOPER and Dr. Phillips patient to be transferred to [facility]. [facility] MICU accepted the patient. Pending bed. Prognosis poor. Spoke to the patient stepdaughter at bedside. Past Medical History Past Medical History: Hypertension, Osteoarthritis (OA), Renal Disease Additional Past Medical History / Comment(s): chronic kidney disease stage 3, lung infection Mycobacterium [place], lung cancer History of Any Multi-Drug Resistant Organisms: None Reported Past Surgical History: No Surgical Hx Reported Additional Past Surgical History / Comment(s): Lt. THR 2022, bronchosopies, Lt. lung biopsy x 2 Past Anesthesia/Blood Transfusion Reactions: No Reported Reaction Past Psychological History: No Psychological Hx Reported Smoking Status: Current every day smoker
[2024-06-16] MEDS: MORPHINE SULFATE 100 MG in SODIUM CHLORIDE 0.9% 90 ML IV SCH (20:25)
--- NOTE | 2024-06-16 20:25 | P.PN ---
Subjective Progress Note Date: 06/16/24 Principal diagnosis: SOB, MICHELET, orthopnea. New diagnosis of limited stage SCLC Pt transferred to ICU this AM as his O2 stats were low and he was barely responsive. When see he is sitting high fowlers, hi flow O2, voice is hoarse, speech is soft, he has severe orthopnea. Objective - Vital Signs Vital signs: Vital Signs Temp 97.6 F 06/16/24 07:38 Pulse 98 06/16/24 12:15 Resp 21 06/16/24 11:00 BP 136/92 06/16/24 11:00 Pulse Ox 93 L 06/16/24 11:00 FiO2 60 06/16/24 12:07 Intake & Output 06/15/24 06/16/24 06/16/24 18:59 06:59 18:59 Intake Total 735 40 75 Output Total 225 575 300 Balance 510 -078 -225 Intake: IV 15 40 75 Invasive Line 1 5 Invasive Line 2 10 40 Lactated Ringers 1,000 ml 75 @ 75 mls/hr IV .[id number] [facility] Rx#:[id number] Oral 720 Output: Urine 225 575 300 Other: Voiding Method Urinal Urinal Urinal # Voids 1 1 - Constitutional General appearance: Present: average body habitus, cooperative, mild distress - EENT Eyes: Present: anicteric sclerae, EOMI ENT: Present: hearing grossly normal - Respiratory Respiratory: bilateral: other (audible rales ) - Cardiovascular Rhythm: regular (at rest, no activity) - Integumentary Integumentary: Present: pale - Neurologic Neurologic: Present: CNII-XII intact - Musculoskeletal Musculoskeletal: Present: generalized weakness - Psychiatric Psychiatric: Present: A&O x's 3, appropriate affect, intact judgment & insight - Labs CBC & Chem 7: 06/16/24 05:23 06/16/24 05:23 Labs: Abnormal Lab Results - Last 24 Hours (Table) 06/16/24 06/16/24 06/16/24 Range/Units 05:23 05:23 09:33 WBC 18.04 H (4.50-10.00) 10*3/uL RBC 3.93 L (4.40-5.60) 10*6/uL Hgb 11.3 L (13.0-17.0) g/dL Hct 35.4 L (39.6-50.0) % MCHC 31.9 L (32.0-37.0) g/dL MPV 7.6 L (9.5-12.2) fL Immature Gran # 0.17 H (0.00-0.04) 10*3/uL Neutrophils # 16.42 H (1.80-7.70) 10*3/uL Lymphocytes # 0.28 L (0.90-5.00) 10*3/uL Monocytes # 1.15 H (0.20-1.00) 10*3/uL Eosinophils # 0.00 L (0.04-0.35) 10*3/uL ABG pH (7.35-7.45) ABG pO2 (83-108) mmHg ABG O2 Saturation (94-97) % Hemoglobin (13.0-17.5) gm/dL Sodium 135 L (137-145) mmol/L Carbon Dioxide 21 L (22-30) mmol/L BUN 69 H (9-20) mg/dL Creatinine 1.81 H (0.66-1.25) mg/dL Glucose 136 H (74-99) mg/dL POC Glucose (mg/dL) 135 H (70-110) mg/dL AST 68 H (17-59) U/L ALT 129 H (4-49) U/L 06/16/24 Range/Units 09:38 WBC (4.50-10.00) 10*3/uL RBC (4.40-5.60) 10*6/uL Hgb (13.0-17.0) g/dL Hct (39.6-50.0) % MCHC (32.0-37.0) g/dL MPV (9.5-12.2) fL Immature Gran # (0.00-0.04) 10*3/uL Neutrophils # (1.80-7.70) 10*3/uL Lymphocytes # (0.90-5.00) 10*3/uL Monocytes # (0.20-1.00) 10*3/uL Eosinophils # (0.04-0.35) 10*3/uL ABG pH 7.28 L (7.35-7.45) ABG pO2 65 L (83-108) mmHg ABG O2 Saturation 91.1 L (94-97) % Hemoglobin 11.0 L (13.0-17.5) gm/dL Sodium (137-145) mmol/L Carbon Dioxide (22-30) mmol/L BUN (9-20) mg/dL Creatinine (0.66-1.25) mg/dL Glucose (74-99) mg/dL POC Glucose (mg/dL) (70-110) mg/dL AST (17-59) U/L ALT (4-49) U/L Assessment and Plan (1) Small cell lung cancer Current Visit: Yes Status: Acute Priority: High Code(s): C34.90 - MALIGNANT NEOPLASM OF UNSP PART OF UNSP BRONCHUS OR LUNG SNOMED Code(s): 920587876 (2) Orthopnea Current Visit: Yes Status: Acute Code(s): R06.01 - ORTHOPNEA SNOMED Code(s): 10218195 Plan: Small cell lung cancer, limited stage -Oncology history as dictated in consult -Plan was to start treatment soon with Cis/TERRY CLOTH CUTTER HAND with concurrent RT, however due to progression of symptoms, outpt treatment was not able to be started. Patient admitted with acute respiratory failure. He was started in treatment Sunday with the hope was that the chemo sensitivity of SCLC, his respiratory status could be improved. He was transferred to ICU Sunday/Sunday for being unresponsive -Pt to complete 1st cycle of chemo today. -Continue dexamethasone -Uric acid was elevated, allopurinol started -Daily monitoring of labs -Med Onc spoke with Pulmoanry/Critical Care and Internal Medicine. [facility] possible endobronchial stenting to help resp status. later notes reviewed, comfort measures are being put in place. Will see how pt does over the next 24-48 hours with supportive care only Doctor attests: I performed a history and physical examination of this patient, developed impression and plan of care. Discussed with dictator. I agree with dictators note, documented as a scribe.
--- NOTE | 2024-06-17 19:02 | P.DS ---
Providers Date of admission: 06/12/24 19:19 Expected date of discharge: 06/17/24 Attending physician: Nicolás Villa Consults: 06/12/24 19:14 Consult Physician Urgent Consulting Provider: [facility] Consult Reason/Comments: nstemi Do you want consulting provider notified?: Yes Consult Physician Urgent Consulting Provider: Allen King Consult Reason/Comments: acute hypoxia, lung ca Do you want consulting provider notified?: Yes 06/12/24 19:27 Consult Physician Urgent Consulting Provider: Rakesh Almaraz Consult Reason/Comments: rebecca/ckd Do you want consulting provider notified?: Yes Consult Physician Urgent Consulting Provider: Cristobal Mitchell Consult Reason/Comments: lung cancer Do you want consulting provider notified?: Yes 06/12/24 22:18 Consult Physician Routine Consulting Provider: Anival Cordova Consult Reason/Comments: SVC Do you want consulting provider notified?: Yes Primary care physician: Heena Nascimento MD Hospital Course: Chief Complaint: Short of breath Pleasant 58-year-old male, follows with Dr. Heena Nascimento as his PCP. 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 Patient back in 2021. Underwent biopsy of a lung lung mass. 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 Received treatment for a year. May 23, 2024: CT chest: Showed large mediastinal infiltrative mass. Encasement of the surrounding structures. Lymph nodes positive. May 28: Dr. Terrell did a bronchoscopy. Multiple biopsies were done and obstructing tumor was found. More details in his notes. 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 May 30 PET scan was done: That showed mass in the mediastinum. Lymph nodes also positive. No evidence of metastatic disease below the diaphragm. For 3 to 4 days patient been having increasing raspiness in the chest. Short of breath. Dry cough. No phlegm. Decreased appetite. In the last month patient lost about 15 pounds. Sitting up in the recliner audibly rattling in the chest. Patient was due to have a MRI. June 13: This morning Dr. King called me that patient should be transferred to outside facility as our radiation team will not be able to do radiation b ecause of patient's pulmonary status. Patient may need a BiPAP. I did spoke to Dr. Bell from [facility] who accepted the patient. Case management was involved. Later got a call from Dr. Mitchell oncology that patient will benefit from chemotherapy as opposed to radiation at this point. Hence chemotherapy is being arranged here. Transfer is being canceled. Earlier today I spoke at length with the patient and his . Patient also having some trouble swallowing. Ensure ordered. Total time spent today about 1 hour 15 minutes with over 40 minutes of discussion. June 14: Up in the chair. Some rattling in the chest. Chemotherapy pharmacist recommended to clogged in his get his chemotherapy drugs. Only eating small amounts. June 15: Up in a recliner. Getting chemotherapy. Still congested in the chest with some rattling. Add scopolamine patch to cut back on secretions. Consult speech to evaluate swallowing. Uric acid 8.8 today. Allopurinol started by oncology. Carboplatin/MACHINE CAPTAIN June 16: Patient in the ICU. For worsening respiratory status. Patient on Airvo 60/60. Dr. COOPER defensive secondary coach called about transfer to [facility]. I asked him to discuss with Dr. Rodriguez patient's oncologist. I did spoke to Dr. Rodriguez and he felt patient may benefit from endobronchial possible lesion treatment. I spoke to the MICU fellow at [facility] -gave report. Patient was accepted. No beds were available. I also spoke at length with the patient his and stepdaughter at the bedside. I did explain the prognosis very guarded. Time spent today about 50 minutes with over 35 minutes of discussion June 17: Last evening and his decided to go comfort care. I went back to the ICU spoke to them. Family was present. Transfer to [facility] was cance led. Comfort measures were initiated. Hospice was consulted. Patient early hours of this morning. Social history: Alcohol occasionally. . Stopped smoking a year and a half ago. Used to work with a [employer]. INVESTIGATIONS, reviewed in the clinical context: June 16: White count 18 hemoglobin 11.3 platelets 370 potassium 4.1 BUN 69 creatinine 1.81 June 15: White count 12.7 hemoglobin 9.3 platelets 328 sodium 134 potassium 3.9. 63 creatinine 1.67 AST 80 ALT 129 uric acid 8.8 June 14: White count 10.4 hemoglobin 10.7 sodium 131 potassium 3.9 BUN 70 creatinine 1.78 2D echo: EF 65 to 70%. Hyperdynamic left ventricular systolic function. Severe pulmonary hypertension. Renal ultrasound: Nonspecific June 13: White count 11.8 hemoglobin 11.4 platelets 285 sodium 130 potassium 3.4 BUN 68 creatinine 1.97 procalcitonin 0.33 Chest x-ray film personally reviewed by me-right hilar mass. Left upper lobe mass. EKG tracing personally reviewed by me-sinus tachycardia. Nonspecific ST-T wave changes. June 12: White count 13.4 hemoglobin 11.6 platelets 290 sodium 128 potassium 4 BUN 31 creatinine 2.32 Troponin I 0.115, 0.148 Influenza type B, type B, RSV, SARS-CoV-2: Not detected Recent testing May 23, 2024: CT chest: Showed large mediastinal infiltrative mass. Encasement of the surrounding structures. Lymph nodes positive. May 28: Dr. Terrell did a bronchoscopy. Multiple biopsies were done and obstructing tumor was found. More details in his notes. 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 May 30 PET scan was done: That showed mass in the mediastinum. Lymph nodes also positive. No evidence of metastatic disease below the diaphragm. 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 Received 2 days of chemotherapy Today per Dr. Phillips from oncology patient may benefit from radiation down to [facility] -Small cell lung cancer. No metastatic disease. Not beyond the diaphragm. Follows with Dr. COOPER pulmonary. Chemotherapy day 2 received carboplatin, etoposide. Oncology following - Hyperuricemia from chemotherapy Allopurinol added - Acute hypoxic respiratory failure secondary to COPD exacerbation/lung cancer. Patient having trouble clearing secretions.: Worsening Airvo - Increase tracheobronchial secretions from underlying malignancy. Patient not able to expectorate scopolamine patch - Dysphagia secondary to underlying malignancy/SVC Consult speech. -Acute COPD exacerbation in a previous smoker: Not improving DuoNeb 4. Nebulized Pulmicort. IV Decadron l -Kidney injury. Unknown acute versus chronic. UA: Trace protein. Renal ultrasound: Unremarkable. IV fluids. Repeat lab - Positive troponin. Clinical picture not compatible with ACS. Especially in the setting of renal failure. 2D echo no wall motion abnormality. Telemetry. -Essential hypertension, Hyzaar/HCTZ discontinued. Catapres 0.2 twice daily -Normocytic anemia likely from underlying malignancy -Hyponatremia, likely hypovolemic given decreased oral intake: Improvement Repeat labs and serum osmolality Disposition: Past Medical History Past Medical History: Hypertension, Osteoarthritis (OA), Renal Disease Additional Past Medical History / Comment(s): chronic kidney disease stage 3, lung infection Mycobacterium [place], lung cancer History of Any Multi-Drug Resistant Organisms: None Reported Past Surgical History: No Surgical Hx Reported Additional Past Surgical History / Comment(s): Lt. THR 2022, bronchosopies, Lt. lung biopsy x 2 Past Anesthesia/Blood Transfusion Reactions: No Reported Reaction Past Psychological History: No Psychological Hx Reported Smoking Status: Current every day smoker Plan - Discharge Summary Discharge Rx Participant: No New Discharge Prescriptions: No Action Omeprazole 20 mg PO DAILY Albuterol Inhaler [Ventolin Hfa Inhaler] 2 puff INHALATION RT-QID PRN PRN Reason: Shortness Of Breath HYDROcodone/APAP 7.5-325MG [[place] 7.5-325] 1 tab PO Q6HR PRN PRN Reason: Pain Ipratropium-Albuterol Nebulize [Duoneb 0.5 mg-3 mg/3 ml Soln] 3 ml INHALATION RT-QID buPROPion XL [Wellbutrin XL] 150 mg PO DAILY dexAMETHasone [Decadron] 4 mg PO BID Losartan-Hctz 50-12.5 mg [Hyzaar 50-12.5] 1 tab PO BID Lidocaine Viscous 2% [Xylocaine Viscous] 1 dose MUCOUS MEM DIRECTED Discharge Medication List Albuterol Inhaler [Ventolin Hfa Inhaler] 2 puff INHALATION RT-QID PRN 06/12/24 [History] HYDROcodone/APAP 7.5-325MG [[place] 7.5-325] 1 tab PO Q6HR PRN 06/12/24 [History] Ipratropium-Albuterol Nebulize [Duoneb 0.5 mg-3 mg/3 ml Soln] 3 ml INHALATION RT-QID 06/12/24 [History] Lidocaine Viscous 2% [Xylocaine Viscous] 1 dose MUCOUS MEM DIRECTED 06/12/24 [History] Losartan-Hctz 50-12.5 mg [Hyzaar 50-12.5] 1 tab PO BID 06/12/24 [History] Omeprazole 20 mg PO DAILY 06/12/24 [History] buPROPion XL [Wellbutrin XL] 150 mg PO DAILY 06/12/24 [History] dexAMETHasone [Decadron] 4 mg PO BID 06/12/24 [History] Follow up Appointment(s)/Referral(s): Heena Nascimento MD [Primary Care Provider] - 1-2 days Patient Instructions/Handouts: Lung Cancer (DC), Eating During Cancer Treatment (DC), Self Care Measures With Cancer (DC), Neutropenia (DC), Mouth Care for the Cancer Patient (DC), Chemo Induced Nausea and Vomiting (DC), Types of Chemotherapy (GEN), Medication Safety for Older Adults (DC) Discharge Disposition: - Preliminary Cause of Preliminary Cause of : Small cell lung cancer
--- NOTE | 2024-06-17 23:10 | P.PN ---
Subjective Patient is seen for follow-up for acute kidney injury and chronic kidney disease. Currently maintained on chemotherapy for small cell lung cancer. Patient also has SVC syndrome. Patient was transferred to the ICU due to worsening shortness of breath. Maintained on high flow oxygen. Creatinine 1.8 mg/dL. IV fluids were discontinued yesterday Objective - Vital Signs Vital signs: Vital Signs Temp 98.9 F 06/16/24 16:00 Pulse 98 06/16/24 20:00 Resp 29 H 06/16/24 20:00 BP 150/104 06/16/24 20:00 Pulse Ox 90 L 06/16/24 20:00 FiO2 90 06/16/24 20:23 Intake & Output 06/17/24 06/17/24 06/18/24 06:59 18:59 06:59 Intake Total 26.15 Output Total 0 Balance 26.15 Intake: IV 10 Lactated Ringers 1,000 ml 10 @ 75 mls/hr IV .[id number] [facility] Rx#:[id number] Intake, IV Titration 16.15 Amount Morphine Sulfate 100 mg 16.15 In Sodium Chloride 0.9% 90 ml @ 2 MG/HR 2 mls/hr IV .Q24H [facility] Rx#: [id number] Output: Urine 0 - Exam Patient is awake, short of breath No acute distress Examination of the heart S1 and S2 Examination of the lungs bilateral breath sounds are heard, transmitted sounds, Bilateral wheezing heard Examination of lower extremities shows no significant edema ROAD RO[employer] exam grossly intact - Labs CBC & Chem 7: 06/16/24 05:23 06/16/24 05:23 Assessment and Plan Assessment: 1. Acute kidney injury secondary to ATN secondary to NSAIDs and further worsened with the use of losartan and hydrochlorothiazide. Creatinine 2.32 on admission and is 1.8 today. No hydronephrosis noted on kidney ultrasound. Right kidney was not fully visualized. Status post IV fluids 2. Chronic kidney disease stage IIIa with baseline creatinine 1.2-1.4 secondary to nephrosclerosis. 3. Hypovolemic hyponatremia further worsened with the use of thiazide diuretic. Improved. 4. Hypokalemia from poor intake and diuretic use. 5. 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 Radiation oncology consulted. 6. Small cell lung cancer. Pulmonology following. 7. Hypertension with chronic kidney disease. Plan: Resume IV fluids, Repeat labs in a.m. Overall prognosis guarded
== END 2024-06-17 02:50 | disposition expired | DRG 180 ==
LOC: EC 15:17 → 3SCARD 19:19 → 2SICU 06-16 09:55
PROVIDERS: ADMIT Hospitalist; ATTEND Hospitalist
PROC: 5A09357 Assistance with Respiratory Ventilation, Less than 24 Consecutive Hours, Continuous Positive Airway Pressure (ICD-10-PCS; 2024-06-13)
PROC: 3E03305 Introduction of Other Antineoplastic into Peripheral Vein, Percutaneous Approach (ICD-10-PCS; principal; 2024-06-14)
DX: C34.12 Malignant neoplasm of upper lobe, left bronchus or lung (principal); I21.A1 Myocardial infarction type 2; J96.01 Acute respiratory failure with hypoxia; N17.0 Acute kidney failure with tubular necrosis; J96.02 Acute respiratory failure with hypercapnia; C78.1 Secondary malignant neoplasm of mediastinum; I31.39 Other pericardial effusion (noninflammatory); J44.1 Chronic obstructive pulmonary disease with (acute) exacerbation; I87.1 Compression of vein; E87.1 Hypo-osmolality and hyponatremia; I27.20 Pulmonary hypertension, unspecified; N18.31 Chronic kidney disease, stage 3a; I12.9 Hypertensive chronic kidney disease with stage 1 through stage 4 chronic kidney disease, or unspecified chronic kidney disease; F32.A Depression, unspecified; R63.4 Abnormal weight loss; D63.0 Anemia in neoplastic disease; Z51.5 Encounter for palliative care; Z66 Do not resuscitate; K21.9 Gastro-esophageal reflux disease without esophagitis; T39.395A Adverse effect of other nonsteroidal anti-inflammatory drugs [NSAID], initial encounter; T46.5X5A Adverse effect of other antihypertensive drugs, initial encounter; T50.2X5A Adverse effect of carbonic-anhydrase inhibitors, benzothiadiazides and other diuretics, initial encounter; T45.1X5A Adverse effect of antineoplastic and immunosuppressive drugs, initial encounter; F17.200 Nicotine dependence, unspecified, uncomplicated; J30.2 Other seasonal allergic rhinitis; D63.1 Anemia in chronic kidney disease; E86.0 Dehydration; E86.1 Hypovolemia; E87.6 Hypokalemia; G89.29 Other chronic pain; R13.10 Dysphagia, unspecified; F41.9 Anxiety disorder, unspecified; E79.0 Hyperuricemia without signs of inflammatory arthritis and tophaceous disease; Z79.899 Other long term (current) drug therapy; Z96.642 Presence of left artificial hip joint; Z87.01 Personal history of pneumonia (recurrent)
CPT/HCPCS: 36415; 36600; 71045; 71046; 76770; 80048; 80053; 81001; 82805; 83735; 83930; 84100; 84145; 84484; 84550; 85025; 85610; 85730; 87636; 93005; 93306; 94640; 94660; 94760; 96361; 96365; 96372; 96375; 96376; 99285